=== PATIENT | female | born 1960 | race Caucasian/White ===

== ENCOUNTER 2018-01-28 11:17 | Inpatient (IN) | payer OTHER ==
[2018-01-28 11:41] LABS: BASO # 0.1 x10^3/uL (0.0-0.2); BASO % 1 % (0-3); EOS # 0.1 x10^3/uL (0.0-0.7); EOS % 1 % (0-3); HEMATOCRIT 26.4 % (36.0-47.0); HEMOGLOBIN 8.7 g/dL (12.0-15.5); LYMPH # 0.8 x10^3/uL (1.0-4.8); LYMPH % 5 % (24-48); MEAN CORPUSCULAR HEMOGLOBIN 31 pg (25-35); MEAN CORPUSCULAR HGB CONC 33 g/dL (31-37); MEAN CORPUSCULAR VOLUME 93 fL (79-100); MONO # 0.9 x10^3/uL (0.0-1.1); MONO % 6 % (0-9); NEUT # 12.6 x10^3uL (1.8-7.7); NEUT % 87 % (31-73); PLATELET COUNT 431 x10^3/uL (140-400); RED BLOOD COUNT 2.84 x10^6/uL (3.50-5.40); RED CELL DISTRIBUTION WIDTH 13.1 % (11.5-14.5); WHITE BLOOD COUNT 14.4 x10^3/uL (4.0-11.0)
[2018-01-28 11:47] LABS: ADD MAN DIFF? YES
[2018-01-28 12:03] LABS: ALBUMIN/GLOBULIN RATIO 0.7 (1.0-1.7); ALK PHOS 82 U/L (46-116); ALT (SGPT) 14 U/L (14-59); ANION GAP 24 (6-14); AST (SGOT) 8 U/L (15-37); CALCIUM 9.4 mg/dL (8.5-10.1); CHLORIDE 101 mmol/L (98-107); CREATININE 15.5 mg/dL (0.6-1.0); GFR 2.4; GLUCOSE 123 mg/dL (70-99); MAGNESIUM 2.4 mg/dL (1.8-2.4); SODIUM 136 mmol/L (136-145); TOTAL BILIRUBIN 0.6 mg/dL (0.2-1.0); TOTAL PROTEIN 7.3 g/dL (6.4-8.2)
[2018-01-28 12:05] LABS: BLOOD UREA NITROGEN 173 mg/dL (7-20); BUN/CREATININE RATIO 11 (6-20)
[2018-01-28 12:07] LABS: CARBON DIOXIDE 11 mmol/L (21-32); POTASSIUM 7.3 mmol/L (3.5-5.1)
[2018-01-28] MEDS ORDERED: MORPHINE SULFATE 4 MG/ML DISP.SYRIN. IV (12:15)
[2018-01-28 12:30] LABS: BILIRUBIN,URINE NEGATIVE (NEG); CLARITY,URINE TURBID; COLOR,URINE YELLOW; GLUCOSE,URINE NEGATIVE (NEG); NITRITE,URINE NEGATIVE (NEG); PH,URINE 8.5; PROTEIN,URINE >=300 mg/dL (NEG-TRACE); UROBILINOGEN,URINE 0.2 mg/dL (0.2 mg/dL)
[2018-01-28 12:38] LABS: BACTERIA,URINE MANY /HPF (0-FEW); RBC,URINE 20-40 /HPF (0-2); SQUAMOUS EPITHELIAL CELL,UR FEW /LPF
[2018-01-28 12:40] LABS: WBC,URINE 20-40 /HPF (0-4)
[2018-01-28] MEDS: CALCIUM GLUCONATE 1,000 MG/10 ML VIAL. IVP (12:48)
[2018-01-28] MEDS: DEXTROSE IV (12:49)
[2018-01-28] MEDS: SODIUM POLYSTYRENE SULFONATE 15 GM/60 ML ORAL.SUSP. PO (12:49)
[2018-01-28] MEDS: SODIUM BICARBONATE IV (12:49)
[2018-01-28] MEDS: NACL IV (12:49)
[2018-01-28 12:51] LABS: % BANDS 4 % (0-9); % BASOS 1 % (0-3); % EOS 1 % (0-5); % LYMPHS 6 % (24-48); % MONOS 5 % (0-10); % SEGS 83 % (35-66); PLT ESTIMATE INCREASED (ADEQUATE)
[2018-01-28 12:52] LABS: BURR CELLS FEW; OVALOCYTES FEW; POLYCHROMASIA SLIGHT
[2018-01-28] MEDS: ONDANSETRON PF 4 MG/2 ML VIAL. IV ×2 (12:55→13:15)
[2018-01-28] MEDS ORDERED: fentaNYL PF VIAL 100 MCG/2 ML VIAL IV (13:00)
[2018-01-28] MEDS ORDERED: IOHEXOL 300 MG/ML 100ML VIAL. (14:33)
[2018-01-28] MEDS ORDERED: LIDOCAINE WITH 8.4% SOD BICARB 3 ML DISP.SYRIN. ×2 (14:33→14:36)
[2018-01-28] MEDS: LIDOCAINE 2% JELLY 6ML IN APPLICATOR. MM (15:30)
[2018-01-28] MEDS ORDERED: LIDOCAINE 2% JELLY 6ML IN APPLICATOR. MM (15:30)
[2018-01-28 15:35] LABS: ANION GAP 25 (6-14); CALCIUM 10.4 mg/dL (8.5-10.1); CARBON DIOXIDE 14 mmol/L (21-32); CHLORIDE 101 mmol/L (98-107); CREATININE 16.3 mg/dL (0.6-1.0); GFR 2.3; GLUCOSE 146 mg/dL (70-99); INR 1.4 (0.8-1.1); PARTIAL THROMBOPLASTIN TIME 30 SEC (24-38); PROTHROMBIN TIME PATIENT 16.7 SEC (11.7-14.0); SODIUM 140 mmol/L (136-145)
[2018-01-28 15:36] LABS: BLOOD UREA NITROGEN 177 mg/dL (7-20)
[2018-01-28 15:38] LABS: POTASSIUM 6.5 mmol/L (3.5-5.1)
[2018-01-28] MEDS ORDERED: fentaNYL PF VIAL 100 MCG/2 ML VIAL (15:39)
[2018-01-28] MEDS ORDERED: MIDAZOLAM HCL/PF 2 MG/2 ML VIAL. (15:39)
[2018-01-28] MEDS: fentaNYL PF VIAL 100 MCG/2 ML VIAL IV ×3 (16:00→23:59)
[2018-01-28] MEDS: LIDOCAINE WITH 8.4% SOD BICARB 3 ML DISP.SYRIN. IJ (16:00)
[2018-01-28] MEDS: MIDAZOLAM HCL/PF 2 MG/2 ML VIAL. IV (16:00)
[2018-01-28] MEDS: IOHEXOL 300 MG/ML 100ML VIAL. IART (16:00)
[2018-01-28] MEDS: ALPRAZolam 0.5 MG TABLET PO (18:40)
[2018-01-28] MEDS: NICOTINE 14MG PATCH. TD (18:40)
[2018-01-28 19:39] LABS: ANION GAP 23 (6-14); BLOOD UREA NITROGEN 177 mg/dL (7-20); CALCIUM 9.7 mg/dL (8.5-10.1); CARBON DIOXIDE 16 mmol/L (21-32); CHLORIDE 105 mmol/L (98-107); CREATININE 15.6 mg/dL (0.6-1.0); GFR 2.4; GLUCOSE 172 mg/dL (70-99); POTASSIUM 5.4 mmol/L (3.5-5.1); SODIUM 144 mmol/L (136-145)
[2018-01-28] MEDS: IV NORMAL SALINE 1000ML BAG 1,000 ML IV (22:32)
[2018-01-28] MEDS: SODIUM BICARBONATE VIAL 150 MEQ in IV DEXTROSE 5% 1,000 ML IV (23:59)
[2018-01-29] MEDS: fentaNYL PF VIAL 100 MCG/2 ML VIAL IV ×5 (02:51→21:30)
[2018-01-29 03:15] LABS: MRSA BY PCR Negative (Negative)
[2018-01-29 05:02] LABS: ADD MAN DIFF? NO
[2018-01-29 05:22] LABS: BASO # 0.1 x10^3/uL (0.0-0.2); BASO % 1 % (0-3); EOS # 0.2 x10^3/uL (0.0-0.7); EOS % 2 % (0-3); LYMPH # 0.7 x10^3/uL (1.0-4.8); LYMPH % 7 % (24-48); MEAN CORPUSCULAR HEMOGLOBIN 31 pg (25-35); MEAN CORPUSCULAR HGB CONC 35 g/dL (31-37); MEAN CORPUSCULAR VOLUME 91 fL (79-100); MONO % 10 % (0-9); NEUT # 8.3 x10^3uL (1.8-7.7); NEUT % 81 % (31-73); PLATELET COUNT 340 x10^3/uL (140-400); RED BLOOD COUNT 2.22 x10^6/uL (3.50-5.40); RED CELL DISTRIBUTION WIDTH 13.1 % (11.5-14.5); WHITE BLOOD COUNT 10.3 x10^3/uL (4.0-11.0)
[2018-01-29 05:35] LABS: HEMATOCRIT 20.1 % (36.0-47.0)
[2018-01-29] MEDS: ALPRAZolam 0.5 MG TABLET PO (06:28)
[2018-01-29] MEDS ORDERED: LACTOBACILLUS RHAMNOSUS GG 1 CAPSULE. PO (09:00)
[2018-01-29 09:02] LABS: IMMEDIATE SPIN CROSSMATCH 1 1
[2018-01-29] MEDS ORDERED: HEPARIN for IV BOLUS 10,000 UNIT/10 ML VIAL. (10:52)
[2018-01-29] MEDS ORDERED: LIDOCAINE WITH 8.4% SOD BICARB 3 ML DISP.SYRIN. ×2 (10:52)
[2018-01-29] MEDS ORDERED: METHYL SALICYLATE/MENTHOL TOPICAL OINTMENT 29GM TUBE. TP (12:15)
[2018-01-29] MEDS ORDERED: fentaNYL PF VIAL 100 MCG/2 ML VIAL (12:25)
[2018-01-29] MEDS: LIDOCAINE WITH 8.4% SOD BICARB 3 ML DISP.SYRIN. IJ (12:45)
[2018-01-29] MEDS ORDERED: IOHEXOL 240 MG/ML 50ML VIAL. (12:54)
[2018-01-29 15:14] LABS: HEMATOCRIT 26.2 % (36.0-47.0); MEAN CORPUSCULAR HEMOGLOBIN 31 pg (25-35); MEAN CORPUSCULAR HGB CONC 34 g/dL (31-37); MEAN CORPUSCULAR VOLUME 90 fL (79-100); PLATELET COUNT 352 x10^3/uL (140-400); RED BLOOD COUNT 2.91 x10^6/uL (3.50-5.40); RED CELL DISTRIBUTION WIDTH 13.4 % (11.5-14.5); WHITE BLOOD COUNT 13.7 x10^3/uL (4.0-11.0)
[2018-01-29] MEDS: cefTRIAXone IV Push 1 GM VIAL. IVP (16:28)
[2018-01-29] MEDS ORDERED: IV NORMAL SALINE 1000ML BAG 1,000 ML IV ×2 (17:30)
[2018-01-29] MEDS ORDERED: ALBUMIN HUMAN 25% 200 ML IV (17:30)
[2018-01-29] MEDS ORDERED: ACETAMINOPHEN 500 MG TABLET PO (17:30)
[2018-01-29] MEDS ORDERED: LABETALOL 20 MG/4 ML DISP.SYRIN. IVP (17:30)
[2018-01-29] MEDS ORDERED: DIALYSIS PATIENT. MC (17:30)
[2018-01-29] MEDS ORDERED: cloNIDine HCL 0.1 MG TABLET PO (17:30)
[2018-01-29] MEDS ORDERED: diphenhydrAMINE 50 MG/ML VIAL IV ×2 (17:30)
[2018-01-29] MEDS: ONDANSETRON PF 4 MG/2 ML VIAL. IV (20:47)
[2018-01-29] MEDS: NICOTINE 14MG PATCH. TD (21:33)
[2018-01-30] MEDS: PROCHLORPERAZINE 10 MG/2 ML VIAL. IV (00:22)
[2018-01-30 05:31] LABS: ADD MAN DIFF? NO
[2018-01-30 05:59] LABS: BASO # 0.1 x10^3/uL (0.0-0.2); BASO % 1 % (0-3); EOS # 0.1 x10^3/uL (0.0-0.7); EOS % 1 % (0-3); HEMATOCRIT 23.8 % (36.0-47.0); HEMOGLOBIN 8.3 g/dL (12.0-15.5); LYMPH # 0.8 x10^3/uL (1.0-4.8); LYMPH % 6 % (24-48); MEAN CORPUSCULAR HEMOGLOBIN 31 pg (25-35); MEAN CORPUSCULAR HGB CONC 35 g/dL (31-37); MEAN CORPUSCULAR VOLUME 89 fL (79-100); MONO # 1.1 x10^3/uL (0.0-1.1); MONO % 9 % (0-9); NEUT # 10.7 x10^3uL (1.8-7.7); NEUT % 84 % (31-73); PLATELET COUNT 321 x10^3/uL (140-400); RED BLOOD COUNT 2.67 x10^6/uL (3.50-5.40); RED CELL DISTRIBUTION WIDTH 13.6 % (11.5-14.5); WHITE BLOOD COUNT 12.8 x10^3/uL (4.0-11.0)
[2018-01-30 06:11] LABS: MAGNESIUM 1.6 mg/dL (1.8-2.4)
[2018-01-30 06:13] LABS: ALBUMIN 2.2 g/dL (3.4-5.0); ANION GAP 9 (6-14); BLOOD UREA NITROGEN 43 mg/dL (7-20); CALCIUM 7.9 mg/dL (8.5-10.1); CARBON DIOXIDE 34 mmol/L (21-32); CHLORIDE 101 mmol/L (98-107); CREATININE 5.7 mg/dL (0.6-1.0); GFR 7.7; GLUCOSE 117 mg/dL (70-99); PHOSPHORUS 5.9 mg/dL (2.6-4.7); POTASSIUM 3.4 mmol/L (3.5-5.1); SODIUM 144 mmol/L (136-145)
[2018-01-30 06:16] LABS: HEP B SURFACE ABDY Non Reactive (.); HEP B SURFACE AG Negative (Negative)
[2018-01-30] MEDS: MAGNESIUM SULFATE 2GM 50 ML IV (06:53)
[2018-01-30] MEDS: ONDANSETRON PF 4 MG/2 ML VIAL. IV ×2 (08:09→14:25)
[2018-01-30] MEDS ORDERED: IV NORMAL SALINE 1000ML BAG 1,000 ML IV (09:01)
[2018-01-30] MEDS ORDERED: DIALYSIS PATIENT. MC ×2 (09:15)
[2018-01-30] MEDS: ALPRAZolam 0.5 MG TABLET PO ×2 (10:52→21:34)
[2018-01-30] MEDS: cefTRIAXone IV Push 1 GM VIAL. IVP (16:50)
[2018-01-30] MEDS: IV NORMAL SALINE 1000ML BAG 1,000 ML IV (16:50)
[2018-01-30] MEDS ORDERED: LACTOBACILLUS RHAMNOSUS GG 1 CAPSULE. PO (21:00)
[2018-01-31] MEDS: IV NORMAL SALINE 1000ML BAG 1,000 ML IV ×2 (00:21→14:40)
[2018-01-31] MEDS: NICOTINE 14MG PATCH. TD (02:56)
[2018-01-31 05:13] LABS: ADD MAN DIFF? NO
[2018-01-31 05:42] LABS: BASO # 0.1 x10^3/uL (0.0-0.2); BASO % 1 % (0-3); EOS # 0.2 x10^3/uL (0.0-0.7); EOS % 1 % (0-3); HEMATOCRIT 25.2 % (36.0-47.0); HEMOGLOBIN 8.4 g/dL (12.0-15.5); LYMPH # 0.9 x10^3/uL (1.0-4.8); LYMPH % 7 % (24-48); MEAN CORPUSCULAR HEMOGLOBIN 31 pg (25-35); MEAN CORPUSCULAR HGB CONC 33 g/dL (31-37); MEAN CORPUSCULAR VOLUME 92 fL (79-100); MONO # 1.5 x10^3/uL (0.0-1.1); MONO % 11 % (0-9); NEUT # 10.7 x10^3uL (1.8-7.7); NEUT % 80 % (31-73); PLATELET COUNT 297 x10^3/uL (140-400); RED BLOOD COUNT 2.75 x10^6/uL (3.50-5.40); RED CELL DISTRIBUTION WIDTH 13.3 % (11.5-14.5); WHITE BLOOD COUNT 13.4 x10^3/uL (4.0-11.0)
[2018-01-31 05:44] LABS: ALBUMIN 2.2 g/dL (3.4-5.0); ANION GAP 10 (6-14); BLOOD UREA NITROGEN 17 mg/dL (7-20); CALCIUM 8.1 mg/dL (8.5-10.1); CARBON DIOXIDE 29 mmol/L (21-32); CHLORIDE 105 mmol/L (98-107); CREATININE 3.7 mg/dL (0.6-1.0); GFR 12.7; GLUCOSE 111 mg/dL (70-99); PHOSPHORUS 3.6 mg/dL (2.6-4.7); POTASSIUM 3.5 mmol/L (3.5-5.1); SODIUM 144 mmol/L (136-145)
[2018-01-31] MEDS: ALPRAZolam 0.5 MG TABLET PO ×2 (08:24→23:31)
[2018-01-31] MEDS: cefTRIAXone IV Push 1 GM VIAL. IVP (15:00)
[2018-01-31] MEDS: ONDANSETRON PF 4 MG/2 ML VIAL. IV (16:06)
[2018-01-31] MEDS: oxyCODONE IR 5 MG TABLET PO (21:27)
[2018-01-31] MEDS: DARBEPOETIN ALFA 60 MCG/0.3 ML DISP.SYRIN. SQ (22:16)
[2018-02-01] MEDS: IV NORMAL SALINE 1000ML BAG 1,000 ML IV ×2 (04:00→17:20)
[2018-02-01] MEDS ORDERED: LIDOCAINE 2% JELLY 6ML IN APPLICATOR. (06:29)
[2018-02-01] MEDS: IV RINGERS,LACTATED 1000ML 1,000 ML IV (07:00)
[2018-02-01] MEDS ORDERED: PROCHLORPERAZINE 10 MG/2 ML VIAL. IV (07:00)
[2018-02-01] MEDS ORDERED: MORPHINE SULFATE 4 MG/ML DISP.SYRIN. IV (07:00)
[2018-02-01] MEDS ORDERED: fentaNYL PF VIAL 100 MCG/2 ML VIAL IV ×2 (07:00)
[2018-02-01] MEDS ORDERED: ONDANSETRON PF 4 MG/2 ML VIAL. IV (07:00)
[2018-02-01 07:57] LABS: ADD MAN DIFF? NO
[2018-02-01 08:04] LABS: BASO # 0.1 x10^3/uL (0.0-0.2); BASO % 1 % (0-3); EOS # 0.3 x10^3/uL (0.0-0.7); EOS % 3 % (0-3); HEMATOCRIT 27.3 % (36.0-47.0); LYMPH # 1.3 x10^3/uL (1.0-4.8); LYMPH % 10 % (24-48); MEAN CORPUSCULAR HEMOGLOBIN 31 pg (25-35); MEAN CORPUSCULAR HGB CONC 33 g/dL (31-37); MEAN CORPUSCULAR VOLUME 92 fL (79-100); MONO # 1.2 x10^3/uL (0.0-1.1); MONO % 9 % (0-9); NEUT # 9.5 x10^3uL (1.8-7.7); NEUT % 77 % (31-73); PLATELET COUNT 295 x10^3/uL (140-400); RED BLOOD COUNT 2.96 x10^6/uL (3.50-5.40); WHITE BLOOD COUNT 12.4 x10^3/uL (4.0-11.0)
[2018-02-01 08:22] LABS: ALBUMIN 2.2 g/dL (3.4-5.0); ANION GAP 8 (6-14); BLOOD UREA NITROGEN 23 mg/dL (7-20); CALCIUM 8.2 mg/dL (8.5-10.1); CARBON DIOXIDE 28 mmol/L (21-32); CHLORIDE 109 mmol/L (98-107); CREATININE 5.1 mg/dL (0.6-1.0); GFR 8.8; GLUCOSE 98 mg/dL (70-99); MAGNESIUM 1.7 mg/dL (1.8-2.4); PHOSPHORUS 3.6 mg/dL (2.6-4.7); POTASSIUM 3.3 mmol/L (3.5-5.1); SODIUM 145 mmol/L (136-145)
[2018-02-01] MEDS: ALPRAZolam 0.5 MG TABLET PO ×2 (10:48→22:08)
[2018-02-01] MEDS: MAGNESIUM SULFATE 2GM 50 ML IV (10:51)
[2018-02-01] MEDS ORDERED: LACTOBACILLUS RHAMNOSUS GG 1 CAPSULE. PO (11:00)
[2018-02-01 14:14] LABS: LACTIC ACID 0.8 mmol/L (0.4-2.0)
[2018-02-01] MEDS: cefTRIAXone IV Push 1 GM VIAL. IVP (15:08)
[2018-02-01] MEDS ORDERED: SEVOFLURANE > 120 MINUTES. IH (16:30)
[2018-02-01] MEDS ORDERED: SEVOFLURANE 61 TO 120 MINUTES. IH (16:30)
[2018-02-01] MEDS ORDERED: fentaNYL PF VIAL 100 MCG/2 ML VIAL (16:31)
[2018-02-01] MEDS ORDERED: PROPOFOL 20 ML IV (16:33)
[2018-02-01] MEDS ORDERED: DEXAMETHASONE SOD PHOS 20 MG/5 ML VIAL. (16:33)
[2018-02-01] MEDS ORDERED: ONDANSETRON PF 4 MG/2 ML VIAL. (16:33)
[2018-02-01] MEDS ORDERED: MIDAZOLAM HCL/PF 2 MG/2 ML VIAL. (16:33)
[2018-02-01] MEDS ORDERED: KETOROLAC 30 MG/ML INJ FOR OR. INJ (16:33)
[2018-02-01] MEDS: LIDOCAINE 1% PF 2 ML VIAL. ID (18:13)
[2018-02-01] MEDS: NICOTINE 14MG PATCH. TD (19:52)
[2018-02-01] MEDS: fentaNYL PF VIAL 100 MCG/2 ML VIAL IV (19:59)
[2018-02-02 06:06] LABS: ADD MAN DIFF? NO
[2018-02-02 06:33] LABS: ANION GAP 13 (6-14); BLOOD UREA NITROGEN 32 mg/dL (7-20); CALCIUM 8.1 mg/dL (8.5-10.1); CARBON DIOXIDE 24 mmol/L (21-32); CHLORIDE 106 mmol/L (98-107); CREATININE 5.3 mg/dL (0.6-1.0); GFR 8.4; GLUCOSE 180 mg/dL (70-99); PHOSPHORUS 4.1 mg/dL (2.6-4.7); POTASSIUM 3.9 mmol/L (3.5-5.1); SODIUM 143 mmol/L (136-145)
[2018-02-02 07:05] LABS: BASO % 0 % (0-3); EOS % 0 % (0-3); HEMATOCRIT 26.5 % (36.0-47.0); HEMOGLOBIN 8.8 g/dL (12.0-15.5); LYMPH # 0.7 x10^3/uL (1.0-4.8); LYMPH % 5 % (24-48); MEAN CORPUSCULAR HEMOGLOBIN 30 pg (25-35); MEAN CORPUSCULAR HGB CONC 33 g/dL (31-37); MEAN CORPUSCULAR VOLUME 92 fL (79-100); MONO # 0.4 x10^3/uL (0.0-1.1); MONO % 3 % (0-9); NEUT # 13.7 x10^3uL (1.8-7.7); NEUT % 93 % (31-73); PLATELET COUNT 290 x10^3/uL (140-400); RED CELL DISTRIBUTION WIDTH 13.2 % (11.5-14.5); WHITE BLOOD COUNT 14.8 x10^3/uL (4.0-11.0)
[2018-02-02] MEDS: IV NORMAL SALINE 1000ML BAG 1,000 ML IV ×2 (08:53→20:28)
[2018-02-02] MEDS ORDERED: IV NORMAL SALINE 1000ML BAG 1,000 ML IV (11:08)
[2018-02-02] MEDS ORDERED: 0.9 % SODIUM CHLORIDE 10 ML DISP.SYRIN. IV ×2 (11:15)
[2018-02-02] MEDS ORDERED: DIALYSIS PATIENT. MC ×2 (11:15)
[2018-02-02] MEDS: cefTRIAXone IV Push 1 GM VIAL. IVP (15:21)
[2018-02-02] MEDS: ALPRAZolam 0.5 MG TABLET PO (17:55)
[2018-02-02] MEDS: oxyCODONE IR 5 MG TABLET PO (20:28)
[2018-02-03] MEDS: ALPRAZolam 0.5 MG TABLET PO ×3 (03:55→22:36)
[2018-02-03 04:45] LABS: ADD MAN DIFF? NO
[2018-02-03 05:05] LABS: BASO # 0.1 x10^3/uL (0.0-0.2); BASO % 0 % (0-3); EOS # 0.2 x10^3/uL (0.0-0.7); EOS % 1 % (0-3); HEMATOCRIT 25.3 % (36.0-47.0); HEMOGLOBIN 8.3 g/dL (12.0-15.5); LYMPH # 1.7 x10^3/uL (1.0-4.8); LYMPH % 10 % (24-48); MEAN CORPUSCULAR HEMOGLOBIN 30 pg (25-35); MEAN CORPUSCULAR HGB CONC 33 g/dL (31-37); MEAN CORPUSCULAR VOLUME 91 fL (79-100); MONO # 1.4 x10^3/uL (0.0-1.1); MONO % 8 % (0-9); NEUT # 13.5 x10^3uL (1.8-7.7); NEUT % 80 % (31-73); PLATELET COUNT 304 x10^3/uL (140-400); RED BLOOD COUNT 2.79 x10^6/uL (3.50-5.40); RED CELL DISTRIBUTION WIDTH 13.2 % (11.5-14.5)
[2018-02-03 05:43] LABS: MAGNESIUM 1.8 mg/dL (1.8-2.4)
[2018-02-03 06:06] LABS: ALBUMIN 2.2 g/dL (3.4-5.0); ANION GAP 11 (6-14); BLOOD UREA NITROGEN 21 mg/dL (7-20); CALCIUM 8.2 mg/dL (8.5-10.1); CARBON DIOXIDE 28 mmol/L (21-32); CHLORIDE 104 mmol/L (98-107); GFR 16.1; GLUCOSE 106 mg/dL (70-99); PHOSPHORUS 2.5 mg/dL (2.6-4.7); POTASSIUM 3.3 mmol/L (3.5-5.1); SODIUM 143 mmol/L (136-145)
[2018-02-03] MEDS: IV NORMAL SALINE 1000ML BAG 1,000 ML IV ×2 (07:33→22:35)
[2018-02-03] MEDS: cefTRIAXone IV Push 1 GM VIAL. IVP (14:26)
[2018-02-04 05:26] LABS: ADD MAN DIFF? NO
[2018-02-04 05:34] LABS: BASO # 0.1 x10^3/uL (0.0-0.2); BASO % 1 % (0-3); EOS # 0.3 x10^3/uL (0.0-0.7); EOS % 2 % (0-3); HEMOGLOBIN 8.9 g/dL (12.0-15.5); LYMPH # 1.5 x10^3/uL (1.0-4.8); LYMPH % 12 % (24-48); MEAN CORPUSCULAR HEMOGLOBIN 30 pg (25-35); MEAN CORPUSCULAR HGB CONC 33 g/dL (31-37); MEAN CORPUSCULAR VOLUME 91 fL (79-100); MONO # 1.5 x10^3/uL (0.0-1.1); MONO % 12 % (0-9); NEUT # 8.8 x10^3uL (1.8-7.7); NEUT % 73 % (31-73); PLATELET COUNT 340 x10^3/uL (140-400); RED BLOOD COUNT 2.98 x10^6/uL (3.50-5.40); RED CELL DISTRIBUTION WIDTH 13.3 % (11.5-14.5); WHITE BLOOD COUNT 12.1 x10^3/uL (4.0-11.0)
[2018-02-04 05:55] LABS: ALBUMIN 2.3 g/dL (3.4-5.0); ANION GAP 12 (6-14); BLOOD UREA NITROGEN 32 mg/dL (7-20); CALCIUM 8.1 mg/dL (8.5-10.1); CARBON DIOXIDE 27 mmol/L (21-32); CHLORIDE 106 mmol/L (98-107); CREATININE 3.9 mg/dL (0.6-1.0); GFR 11.9; GLUCOSE 109 mg/dL (70-99); PHOSPHORUS 3.2 mg/dL (2.6-4.7); POTASSIUM 3.5 mmol/L (3.5-5.1); SODIUM 145 mmol/L (136-145)
[2018-02-04] MEDS: IV NORMAL SALINE 1000ML BAG 1,000 ML IV (13:19)
[2018-02-04] MEDS: cefTRIAXone IV Push 1 GM VIAL. IVP (16:46)
[2018-02-04] MEDS: ALPRAZolam 0.5 MG TABLET PO (16:51)
[2018-02-04] MEDS: oxyCODONE IR 5 MG TABLET PO (21:49)
[2018-02-05] MEDS: IV NORMAL SALINE 1000ML BAG 1,000 ML IV ×2 (02:30→14:40)
[2018-02-05 05:57] LABS: ADD MAN DIFF? NO
[2018-02-05 06:00] LABS: BASO # 0.1 x10^3/uL (0.0-0.2); BASO % 1 % (0-3); EOS # 0.3 x10^3/uL (0.0-0.7); EOS % 3 % (0-3); HEMATOCRIT 25.7 % (36.0-47.0); HEMOGLOBIN 8.4 g/dL (12.0-15.5); LYMPH # 1.3 x10^3/uL (1.0-4.8); LYMPH % 11 % (24-48); MEAN CORPUSCULAR HEMOGLOBIN 30 pg (25-35); MEAN CORPUSCULAR HGB CONC 33 g/dL (31-37); MEAN CORPUSCULAR VOLUME 91 fL (79-100); MONO # 1.5 x10^3/uL (0.0-1.1); MONO % 12 % (0-9); NEUT # 8.9 x10^3uL (1.8-7.7); NEUT % 73 % (31-73); PLATELET COUNT 312 x10^3/uL (140-400); RED BLOOD COUNT 2.81 x10^6/uL (3.50-5.40); RED CELL DISTRIBUTION WIDTH 13.6 % (11.5-14.5); WHITE BLOOD COUNT 12.2 x10^3/uL (4.0-11.0)
[2018-02-05 06:15] LABS: ALBUMIN 2.1 g/dL (3.4-5.0); ANION GAP 9 (6-14); BLOOD UREA NITROGEN 40 mg/dL (7-20); CALCIUM 8.3 mg/dL (8.5-10.1); CARBON DIOXIDE 27 mmol/L (21-32); CHLORIDE 106 mmol/L (98-107); CREATININE 4.6 mg/dL (0.6-1.0); GFR 9.9; GLUCOSE 109 mg/dL (70-99); PHOSPHORUS 3.6 mg/dL (2.6-4.7); POTASSIUM 3.7 mmol/L (3.5-5.1); SODIUM 142 mmol/L (136-145)
[2018-02-05] MEDS ORDERED: HEPARIN for IV BOLUS 10,000 UNIT/10 ML VIAL. (13:39)
[2018-02-05] MEDS ORDERED: LIDOCAINE 2%/EPI 1:100,000 20 ML VIAL. (13:39)
[2018-02-05] MEDS ORDERED: DIALYSIS PATIENT. MC (14:00)
[2018-02-05] MEDS ORDERED: IV NORMAL SALINE 1000ML BAG 1,000 ML IV ×2 (14:00)
[2018-02-05] MEDS: MIDAZOLAM HCL/PF 2 MG/2 ML VIAL. IV (14:24)
[2018-02-05] MEDS: LIDOCAINE 2%/EPI 1:100,000 20 ML VIAL. IJ (14:25)
[2018-02-05] MEDS: fentaNYL PF VIAL 100 MCG/2 ML VIAL IV (14:25)
[2018-02-05] MEDS: ALPRAZolam 0.5 MG TABLET PO (15:42)
[2018-02-05] MEDS: ACETAMINOPHEN 325 MG TABLET. PO (15:42)
[2018-02-05] MEDS: oxyCODONE IR 5 MG TABLET PO (21:04)
[2018-02-05] MEDS: LORazepam 1 MG TABLET PO (22:11)
[2018-02-06] MEDS: ALPRAZolam 0.5 MG TABLET PO (02:48)
[2018-02-06] MEDS: IV NORMAL SALINE 1000ML BAG 1,000 ML IV ×2 (02:49→17:59)
[2018-02-06 08:36] LABS: HEMATOCRIT 27.5 % (36.0-47.0); HEMOGLOBIN 9.2 g/dL (12.0-15.5); MEAN CORPUSCULAR HEMOGLOBIN 31 pg (25-35); MEAN CORPUSCULAR HGB CONC 33 g/dL (31-37); MEAN CORPUSCULAR VOLUME 92 fL (79-100); PLATELET COUNT 347 x10^3/uL (140-400); RED CELL DISTRIBUTION WIDTH 13.3 % (11.5-14.5)
[2018-02-06] MEDS: oxyCODONE IR 5 MG TABLET PO ×2 (08:39→21:50)
[2018-02-06 09:01] LABS: ANION GAP 7 (6-14); BLOOD UREA NITROGEN 22 mg/dL (7-20); CALCIUM 8.6 mg/dL (8.5-10.1); CARBON DIOXIDE 30 mmol/L (21-32); CHLORIDE 103 mmol/L (98-107); CREATININE 3.2 mg/dL (0.6-1.0); GLUCOSE 98 mg/dL (70-99); POTASSIUM 4.4 mmol/L (3.5-5.1); SODIUM 140 mmol/L (136-145)
[2018-02-06] MEDS: ONDANSETRON PF 4 MG/2 ML VIAL. IV (17:59)
[2018-02-06] MEDS: LORazepam 1 MG TABLET PO (21:49)
[2018-02-07] MEDS: IV NORMAL SALINE 1000ML BAG 1,000 ML IV (05:36)
[2018-02-07] MEDS ORDERED: MAGNESIUM SULFATE 2GM 50 ML IV (09:00)
[2018-02-07] MEDS: oxyCODONE IR 5 MG TABLET PO ×2 (09:19→18:23)
[2018-02-07] MEDS: LORazepam 1 MG TABLET PO (18:23)
[2018-02-07] MEDS: ALPRAZolam 0.5 MG TABLET PO (21:11)
[2018-02-07] MEDS: DARBEPOETIN ALFA 60 MCG/0.3 ML DISP.SYRIN. SQ (21:11)
[2018-02-07] MEDS: diphenhydrAMINE HCL 25 MG CAPSULE PO (22:51)
[2018-02-08 05:29] LABS: HEMOGLOBIN 8.8 g/dL (12.0-15.5)
[2018-02-08 05:51] LABS: ALBUMIN 2.4 g/dL (3.4-5.0); ANION GAP 11 (6-14); BLOOD UREA NITROGEN 36 mg/dL (7-20); CALCIUM 9.1 mg/dL (8.5-10.1); CARBON DIOXIDE 27 mmol/L (21-32); CHLORIDE 103 mmol/L (98-107); GLUCOSE 95 mg/dL (70-99); MAGNESIUM 1.7 mg/dL (1.8-2.4); PHOSPHORUS 4.9 mg/dL (2.6-4.7); POTASSIUM 4.7 mmol/L (3.5-5.1); SODIUM 141 mmol/L (136-145)
[2018-02-08] MEDS ORDERED: IV NORMAL SALINE 1000ML BAG 1,000 ML IV ×2 (08:33)
[2018-02-08] MEDS ORDERED: diphenhydrAMINE 50 MG/ML VIAL IV ×2 (08:45)
[2018-02-08] MEDS ORDERED: DIALYSIS PATIENT. MC (08:45)
== END 2018-02-08 15:41 | disposition home or self-care (01) | DRG 668 ==
LOC: 4 NORTH 01-31 15:09 → ER 11:17 → 1 WEST ICU 14:18
PROC: 0T913ZZ Drainage of Left Kidney, Percutaneous Approach (ICD-10-PCS; principal; 2018-02-01 16:55)
PROC: 02PA03Z Removal of Infusion Device from Heart, Open Approach (ICD-10-PCS; 2018-02-01 16:55)
PROC: 0TBB8ZZ Excision of Bladder, Via Natural or Artificial Opening Endoscopic (ICD-10-PCS; 2018-02-01 16:55)
PROC: 0JH63XZ Insertion of Tunneled Vascular Access Device into Chest Subcutaneous Tissue and Fascia, Percutaneous Approach (ICD-10-PCS; 2018-02-01 16:55)
PROC: 0T903ZZ Drainage of Right Kidney, Percutaneous Approach (ICD-10-PCS; 2018-02-01 16:55)
PROC: 02H633Z Insertion of Infusion Device into Right Atrium, Percutaneous Approach (ICD-10-PCS; 2018-02-01 16:55)
PROC: B2141ZZ Fluoroscopy of Right Heart using Low Osmolar Contrast (ICD-10-PCS; 2018-02-01 16:55)
PROC: 02H633Z Insertion of Infusion Device into Right Atrium, Percutaneous Approach (ICD-10-PCS; 2018-02-01 16:55)
PROC: 30233N1 Transfusion of Nonautologous Red Blood Cells into Peripheral Vein, Percutaneous Approach (ICD-10-PCS; 2018-02-01 16:55)
PROC: 5A1D70Z Performance of Urinary Filtration, Intermittent, Less than 6 Hours Per Day (ICD-10-PCS; 2018-02-01 16:55)
PROC: 5A1D70Z Performance of Urinary Filtration, Intermittent, Less than 6 Hours Per Day (ICD-10-PCS; 2018-02-01 16:55)
PROC: 5A1D70Z Performance of Urinary Filtration, Intermittent, Less than 6 Hours Per Day (ICD-10-PCS; 2018-02-01 16:55)
PROC: 5A1D70Z Performance of Urinary Filtration, Intermittent, Less than 6 Hours Per Day (ICD-10-PCS; 2018-02-01 16:55)
PROC: 5A1D70Z Performance of Urinary Filtration, Intermittent, Less than 6 Hours Per Day (ICD-10-PCS; 2018-02-01 16:55)
DX: C67.9 Malignant neoplasm of bladder, unspecified (principal); E43 Unspecified severe protein-calorie malnutrition; N17.9 Acute kidney failure, unspecified; E87.2 Acidosis; C52 Malignant neoplasm of vagina; D63.1 Anemia in chronic kidney disease; N82.0 Vesicovaginal fistula; N82.8 Other female genital tract fistulae; N39.0 Urinary tract infection, site not specified; N13.30 Unspecified hydronephrosis; C53.9 Malignant neoplasm of cervix uteri, unspecified; N18.3 Chronic kidney disease, stage 3 (moderate); E87.5 Hyperkalemia; N32.0 Bladder-neck obstruction; D72.828 Other elevated white blood cell count; F17.210 Nicotine dependence, cigarettes, uncomplicated; F41.9 Anxiety disorder, unspecified; I51.7 Cardiomegaly; K57.30 Diverticulosis of large intestine without perforation or abscess without bleeding; K59.00 Constipation, unspecified; M47.816 Spondylosis without myelopathy or radiculopathy, lumbar region; N28.82 Megaloureter; R32 Unspecified urinary incontinence; Z80.6 Family history of leukemia; Z85.41 Personal history of malignant neoplasm of cervix uteri; Z99.2 Dependence on renal dialysis; Z68.23 Body mass index [BMI] 23.0-23.9, adult; Z88.5 Allergy status to narcotic agent
CPT/HCPCS: 36415; 36556; 36581; 50432; 71045; 74176; 76770; 76856; 76937; 76942; 77001; 80048; 80053; 80069; 81001; 83605; 83735; 85007; 85018; 85025; 85027; 85610; 85730; 86704; 86706; 86850; 86900; 86901; 86920; 87040; 87086; 87340; 87641; 88305; 93005; 96365; 96366; 96375; 99152; 99153; 99285; 99285-25; C1729; C1750; C1769; C1892; C1894; J0610; J0690; J0696; J0780; J0881; J1100; J1644; J1885; J1956; J2250; J2405; J2704; J3010; J3475; J3490; J7030; J7042; J7120; P9016; Q0163; Q9967

== ENCOUNTER → 2018-02-11 | Outpatient (CLI) | payer OTHER ==
[~2018-02-11] MED LIST: MIDAZOLAM HCL/PF 2 MG/2 ML VIAL.; fentaNYL PF VIAL 100 MCG/2 ML VIAL
== END | disposition home or self-care (01) ==
LOC: PETSC 06:49
DX: C53.9 Malignant neoplasm of cervix uteri, unspecified (principal); K57.30 Diverticulosis of large intestine without perforation or abscess without bleeding; Z45.2 Encounter for adjustment and management of vascular access device
CPT/HCPCS: 78815; A9552

== ENCOUNTER 2018-02-12 10:30 | Inpatient (IN) | payer OTHER ==
[2018-02-12] MEDS ORDERED: LIDOCAINE WITH 8.4% SOD BICARB 3 ML DISP.SYRIN. (11:50)
[2018-02-12] MEDS ORDERED: IODIXANOL 320MG/ML 50ML VIAL. (11:50)
[2018-02-12] MEDS ORDERED: ACETAMINOPHEN 500 MG TABLET PO (13:30)
[2018-02-12] MEDS ORDERED: ONDANSETRON PF 4 MG/2 ML VIAL. IV (13:30)
[2018-02-12] MEDS ORDERED: fentaNYL PF VIAL 100 MCG/2 ML VIAL IV (13:30)
[2018-02-12] MEDS: IODIXANOL 320MG/ML 50ML VIAL. IV (13:46)
[2018-02-12] MEDS: LIDOCAINE WITH 8.4% SOD BICARB 3 ML DISP.SYRIN. IJ (13:47)
[2018-02-12] MEDS: fentaNYL PF VIAL 100 MCG/2 ML VIAL IV (13:48)
[2018-02-12] MEDS: MIDAZOLAM HCL/PF 2 MG/2 ML VIAL. IV (13:48)
[2018-02-12] MEDS ORDERED: IV NORMAL SALINE 1000ML BAG 1,000 ML IV (15:58)
[2018-02-12] MEDS ORDERED: 0.9 % SODIUM CHLORIDE 10 ML DISP.SYRIN. IV ×2 (16:00)
[2018-02-12] MEDS ORDERED: DIALYSIS PATIENT. MC ×2 (16:00)
[2018-02-12] MEDS: oxyCODONE IR 5 MG TABLET PO ×2 (16:28→20:23)
[2018-02-12] MEDS: LORazepam 1 MG TABLET PO (22:44)
[2018-02-13 05:40] LABS: ADD MAN DIFF? NO
[2018-02-13 05:49] LABS: BASO # 0.1 x10^3/uL (0.0-0.2); BASO % 1 % (0-3); EOS # 0.2 x10^3/uL (0.0-0.7); EOS % 2 % (0-3); HEMATOCRIT 26.2 % (36.0-47.0); HEMOGLOBIN 8.6 g/dL (12.0-15.5); LYMPH # 1.4 x10^3/uL (1.0-4.8); LYMPH % 13 % (24-48); MEAN CORPUSCULAR HEMOGLOBIN 30 pg (25-35); MEAN CORPUSCULAR HGB CONC 33 g/dL (31-37); MEAN CORPUSCULAR VOLUME 91 fL (79-100); MONO # 1.2 x10^3/uL (0.0-1.1); MONO % 12 % (0-9); NEUT # 7.9 x10^3uL (1.8-7.7); NEUT % 73 % (31-73); PLATELET COUNT 395 x10^3/uL (140-400); RED BLOOD COUNT 2.88 x10^6/uL (3.50-5.40); RED CELL DISTRIBUTION WIDTH 13.7 % (11.5-14.5); WHITE BLOOD COUNT 10.8 x10^3/uL (4.0-11.0)
[2018-02-13 06:15] LABS: ANION GAP 8 (6-14); BLOOD UREA NITROGEN 13 mg/dL (7-20); CARBON DIOXIDE 30 mmol/L (21-32); CHLORIDE 102 mmol/L (98-107); CREATININE 2.9 mg/dL (0.6-1.0); GFR 16.8; GLUCOSE 81 mg/dL (70-99); POTASSIUM 4.1 mmol/L (3.5-5.1); SODIUM 140 mmol/L (136-145)
[2018-02-13] MEDS ORDERED: DARBEPOETIN ALFA 60 MCG/0.3 ML DISP.SYRIN. SQ (21:00)
== END 2018-02-13 11:30 | disposition home or self-care (01) | DRG 698 ==
LOC: INTRAD 10:30 → 5 NORTH 11:25
PROC: 0T25X0Z Change Drainage Device in Kidney, External Approach (ICD-10-PCS; principal; 2018-02-12)
PROC: 5A1D70Z Performance of Urinary Filtration, Intermittent, Less than 6 Hours Per Day (ICD-10-PCS; 2018-02-12)
DX: T83.022A Displacement of nephrostomy catheter, initial encounter (principal); N18.6 End stage renal disease; N17.9 Acute kidney failure, unspecified; N13.30 Unspecified hydronephrosis; D64.9 Anemia, unspecified; C53.9 Malignant neoplasm of cervix uteri, unspecified; Z82.49 Family history of ischemic heart disease and other diseases of the circulatory system; N13.8 Other obstructive and reflux uropathy; Z88.5 Allergy status to narcotic agent; Y73.1 Therapeutic (nonsurgical) and rehabilitative gastroenterology and urology devices associated with adverse incidents; Y65.8 Other specified misadventures during surgical and medical care; Z99.2 Dependence on renal dialysis
CPT/HCPCS: 36415; 50432; 50435; 80048; 85025; 99152; 99153; C1729; C1769; C1894; G0378; G0379; J1956; J2250; J3010

== ENCOUNTER 2018-02-22 12:20 | Outpatient (CLI) | payer OTHER ==
[2018-02-22] MEDS ORDERED: HEPARIN for IV BOLUS 10,000 UNIT/10 ML VIAL. (12:59)
[2018-02-22] MEDS ORDERED: LIDOCAINE 2%/EPI 1:100,000 20 ML VIAL. (12:59)
[2018-02-22] MEDS ORDERED: MIDAZOLAM HCL/PF 2 MG/2 ML VIAL. (13:02)
[2018-02-22] MEDS ORDERED: fentaNYL PF VIAL 100 MCG/2 ML VIAL (13:03)
[2018-02-22] MEDS: LIDOCAINE 2%/EPI 1:100,000 20 ML VIAL. IJ (14:00)
[2018-02-22] MEDS: fentaNYL PF VIAL 100 MCG/2 ML VIAL IV (14:01)
[2018-02-22] MEDS: MIDAZOLAM HCL/PF 2 MG/2 ML VIAL. IV (14:01)
== END 2018-02-22 15:00 | disposition home or self-care (01) ==
LOC: INTRAD 12:20
DX: T82.41XA Breakdown (mechanical) of vascular dialysis catheter, initial encounter (principal); N18.6 End stage renal disease; F41.9 Anxiety disorder, unspecified; Z85.41 Personal history of malignant neoplasm of cervix uteri; Z85.51 Personal history of malignant neoplasm of bladder; Z90.5 Acquired absence of kidney; Z86.2 Personal history of diseases of the blood and blood-forming organs and certain disorders involving the immune mechanism; Z98.890 Other specified postprocedural states; Y83.8 Other surgical procedures as the cause of abnormal reaction of the patient, or of later complication, without mention of misadventure at the time of the procedure; Y92.89 Other specified places as the place of occurrence of the external cause
CPT/HCPCS: 36581; 77001; 99152; 99153; C1750; C1769; J0690; J2250; J3010; J3490

== ENCOUNTER → 2018-03-24 | Outpatient (CLI) | payer OTHER ==
[2018-03-24 08:49] LABS: HEMATOCRIT 21.7 % (36.0-47.0); HEMOGLOBIN 7.1 g/dL (12.0-15.5); MEAN CORPUSCULAR HGB CONC 33 g/dL (31-37)
[2018-03-24] MEDS: ACETAMINOPHEN 325 MG TABLET. PO (09:38)
[2018-03-24] MEDS: diphenhydrAMINE HCL 25 MG CAPSULE PO (09:38)
[2018-03-24 09:58] LABS: IMMEDIATE SPIN CROSSMATCH 1 1
[2018-03-24] MEDS: FUROSEMIDE 20 MG/2 ML VIAL. IVP (11:22)
== END | disposition home or self-care (01) ==
LOC: OPS 08:13
DX: D64.81 Anemia due to antineoplastic chemotherapy (principal); T45.1X5A Adverse effect of antineoplastic and immunosuppressive drugs, initial encounter; C52 Malignant neoplasm of vagina; N18.6 End stage renal disease; D63.1 Anemia in chronic kidney disease; F41.9 Anxiety disorder, unspecified; E66.01 Morbid (severe) obesity due to excess calories; F17.210 Nicotine dependence, cigarettes, uncomplicated; Z68.20 Body mass index [BMI] 20.0-20.9, adult; Z90.5 Acquired absence of kidney; Z99.2 Dependence on renal dialysis; Z85.51 Personal history of malignant neoplasm of bladder; Z85.41 Personal history of malignant neoplasm of cervix uteri; Z86.2 Personal history of diseases of the blood and blood-forming organs and certain disorders involving the immune mechanism
CPT/HCPCS: 36415; 36430; 85014; 85018; 86850; 86900; 86901; 86920; 96374; P9016; Q0163

== ENCOUNTER 2018-04-01 06:50 | Outpatient (CLI) | payer OTHER ==
[2018-04-01 07:18] LABS: BASO % 0 % (0-3); EOS % 1 % (0-3); HEMATOCRIT 23.9 % (36.0-47.0); HEMOGLOBIN 8.1 g/dL (12.0-15.5); LYMPH # 0.2 x10^3/uL (1.0-4.8); LYMPH % 9 % (24-48); MEAN CORPUSCULAR HEMOGLOBIN 30 pg (25-35); MEAN CORPUSCULAR HGB CONC 34 g/dL (31-37); MEAN CORPUSCULAR VOLUME 89 fL (79-100); MONO # 0.2 x10^3/uL (0.0-1.1); MONO % 11 % (0-9); NEUT # 1.7 x10^3uL (1.8-7.7); NEUT % 79 % (31-73); PLATELET COUNT 199 x10^3/uL (140-400); RED BLOOD COUNT 2.68 x10^6/uL (3.50-5.40); WHITE BLOOD COUNT 2.2 x10^3/uL (4.0-11.0)
[2018-04-01 07:19] LABS: ADD MAN DIFF? YES
[2018-04-01 07:59] LABS: INR 1.1 (0.8-1.1); PROTHROMBIN TIME PATIENT 13.6 SEC (11.7-14.0)
[2018-04-01] MEDS ORDERED: LIDOCAINE WITH 8.4% SOD BICARB 3 ML DISP.SYRIN. (08:28)
[2018-04-01] MEDS ORDERED: IOHEXOL 240 MG/ML 50ML VIAL. (08:28)
[2018-04-01] MEDS ORDERED: MIDAZOLAM HCL/PF 2 MG/2 ML VIAL. ×2 (08:31→08:47)
[2018-04-01] MEDS ORDERED: fentaNYL PF VIAL 100 MCG/2 ML VIAL (08:31)
[2018-04-01 09:17] LABS: % BANDS 12 % (0-9); % EOS 2 % (0-5); % LYMPHS 6 % (24-48); % MONOS 6 % (0-10); % SEGS 74 % (35-66); PLT ESTIMATE ADEQUATE (ADEQUATE)
[2018-04-01] MEDS: IOHEXOL 240 MG/ML 50ML VIAL. IJ (10:00)
[2018-04-01] MEDS: MIDAZOLAM HCL/PF 2 MG/2 ML VIAL. IV (10:00)
[2018-04-01] MEDS: fentaNYL PF VIAL 100 MCG/2 ML VIAL IV (10:00)
[2018-04-01] MEDS: LIDOCAINE WITH 8.4% SOD BICARB 3 ML DISP.SYRIN. IJ (10:00)
== END 2018-04-01 10:50 | disposition home or self-care (01) ==
LOC: INTRAD 06:50
DX: C53.9 Malignant neoplasm of cervix uteri, unspecified (principal); F41.9 Anxiety disorder, unspecified; D64.9 Anemia, unspecified; Z88.5 Allergy status to narcotic agent; Z98.890 Other specified postprocedural states; Z85.51 Personal history of malignant neoplasm of bladder; Z90.5 Acquired absence of kidney
CPT/HCPCS: 36415; 50431; 50435; 85007; 85025; 85610; 99152; 99153; C1729; C1769; J2250; J3010; Q9966

== ENCOUNTER → 2018-06-22 | Outpatient (CLI) | payer OTHER ==
[2018-04-22 14:15] VITALS: BP 113/68
[~2018-06-22] MED LIST changes: +ACET325T9 PO; +APIX5TAB PO; +CARB10VI IV; +CONTRAST GIVEN. MC PRN; +IOHEXOL 240 MG/ML 50ML VIAL. PO ONE; +LORA-434 PO; +LORA1TAB PO; -MIDAZOLAM HCL/PF 2 MG/2 ML VIAL.; +MIRT15TA PO; +NITR100C PO; +ONDA8TAB9 PO; +OXYB5TAB7 PO; +OXYC-323 PO; +OXYC5TAB95 PO; -fentaNYL PF VIAL 100 MCG/2 ML VIAL
--- NOTE | 2018-06-22 11:49 | RAD ---
EXAM: CT chest without IV contrast. CLINICAL HISTORY: CERVICAL CARCINOMA S/P TREATMENT 1 MONTHS F/U COMPARISON: 01/28/2018, PET CT 02/11/2018 TECHNIQUE: CT of the abdomen and pelvis without intravenous contrast. Oral contrast was administered. Axial, coronal and sagittal reformatted images were generated. PQRS compliance Statement One or more of the following individualized dose reduction techniques were utilized for this study: 1. Automated exposure control 2. Adjustment of the mA and/or kV according to patient size 3. Use of iterative reconstruction technique FINDINGS: Lung bases are clear. Abdomen/pelvis: No focal liver lesion. Gallbladder is unremarkable. No intra or extrahepatic biliary ductal dilatation is seen. Spleen and pancreas are grossly unremarkable. Bilateral nephrostomy tubes are seen. No hydronephrosis. The left kidney is small. No abdominal or pelvic lymphadenopathy by size criteria. Moderate colonic stool content is seen. Oral contrast material is seen extending to the level of the distal ileum. Diffuse fat infiltration is again seen about the lower uterus and decompressed bladder likely from known cervical cancer. The previously seen right adnexal lesion is not as well delineated on today's exam. Bones: Degenerative changes centered at the symphysis pubis are noted. No definite aggressive osseous lesion is seen. IMPRESSION: 1. Diffuse fat infiltration is seen within the pelvis from known cervical cancer and likely associated posttreatment change. The previously seen right adnexal nodule is not well seen, possibly smaller or partially obscured by adjacent fat infiltration. 2. No abdominal or pelvic lymphadenopathy by size criteria. 3. Bilateral nephrostomy tubes are in within the renal pelves. Electronically signed by: Farhan Levine MD (06/22/2018 11:45 AM) [facility]
== END | disposition home or self-care (01) ==
LOC: CT 09:08
PROVIDERS: ATTEND Radiology Radiation Oncology
DX: C53.9 Malignant neoplasm of cervix uteri, unspecified (principal); N18.3 Chronic kidney disease, stage 3 (moderate); Z93.6 Other artificial openings of urinary tract status; Z88.5 Allergy status to narcotic agent; Z87.891 Personal history of nicotine dependence; Z90.5 Acquired absence of kidney
CPT/HCPCS: 74176; Q9966

== ENCOUNTER 2018-08-05 06:48 | Outpatient (CLI) | payer OTHER ==
[2018-08-05] VITALS (7 sets, daily range): BP systolic 102–123; BP diastolic 66–79
[~2018-08-05] VITALS: Ht 167.6 cm; Wt 48.1 kg
[~2018-08-05 06:48] MED LIST changes: -CONTRAST GIVEN. MC PRN; -IOHEXOL 240 MG/ML 50ML VIAL. PO ONE
[2018-08-05 07:39] LABS: BASO % 1 % (0-3); EOS # 0.2 x10^3/uL (0.0-0.7); EOS % 3 % (0-3); HEMATOCRIT 33.7 % (36.0-47.0); HEMOGLOBIN 11.5 g/dL (12.0-15.5); LYMPH # 0.7 x10^3/uL (1.0-4.8); LYMPH % 14 % (24-48); MEAN CORPUSCULAR HEMOGLOBIN 34 pg (25-35); MEAN CORPUSCULAR HGB CONC 34 g/dL (31-37); MEAN CORPUSCULAR VOLUME 100 fL (79-100); MONO # 0.4 x10^3/uL (0.0-1.1); MONO % 9 % (0-9); NEUT # 3.5 x10^3uL (1.8-7.7); NEUT % 73 % (31-73); PLATELET COUNT 239 x10^3/uL (140-400); RED BLOOD COUNT 3.37 x10^6/uL (3.50-5.40); RED CELL DISTRIBUTION WIDTH 14.3 % (11.5-14.5); WHITE BLOOD COUNT 4.9 x10^3/uL (4.0-11.0)
[2018-08-05] MEDS ORDERED: MIDAZOLAM HCL/PF 2 MG/2 ML VIAL. ONE (08:19)
[2018-08-05] MEDS ORDERED: fentaNYL PF VIAL 100 MCG/2 ML VIAL ONE (08:19)
[2018-08-05] MEDS ORDERED: fentaNYL PF VIAL 100 MCG/2 ML VIAL IV ONE (08:30)
[2018-08-05] MEDS ORDERED: MIDAZOLAM HCL/PF 2 MG/2 ML VIAL. IV ONE (08:30)
[2018-08-05] MEDS ORDERED: LIDOCAINE WITH 8.4% SOD BICARB 3 ML DISP.SYRIN. ONE (08:32)
[2018-08-05] MEDS ORDERED: IOHEXOL 240 MG/ML 50ML VIAL. ONE (08:33)
[2018-08-05] MEDS ORDERED: LIDOCAINE WITH 8.4% SOD BICARB 3 ML DISP.SYRIN. IJ ONE (09:30)
[2018-08-05] MEDS ORDERED: CONTRAST GIVEN. MC PRN (09:30)
[2018-08-05] MEDS ORDERED: IOHEXOL 240 MG/ML 50ML VIAL. IJ ONE (09:30)
== END 2018-08-05 10:50 | disposition home or self-care (01) ==
LOC: INTRAD 06:48
PROVIDERS: ATTEND Internal Medicine Hematology & Oncology
DX: Z46.6 Encounter for fitting and adjustment of urinary device (principal); Z88.5 Allergy status to narcotic agent; Z85.41 Personal history of malignant neoplasm of cervix uteri; Z99.2 Dependence on renal dialysis; F17.210 Nicotine dependence, cigarettes, uncomplicated; Z79.01 Long term (current) use of anticoagulants; Z79.899 Other long term (current) drug therapy
CPT/HCPCS: 36415; 50435; 85025; 85610; 99152; C1729; C1769; J0690; J2250; J3010; Q9966

== ENCOUNTER 2018-08-22 00:30 | Inpatient (IN) | payer SELFPAY ==
[~2018-08-22] VITALS: Ht 167.6 cm; Wt 52.6 kg
[2018-08-22] VITALS (29 sets, daily range): BP systolic 58–148; BP diastolic 35–81
[2018-08-22 01:08] LABS: BASO # 0.1 x10^3/uL (0.0-0.2); BASO % 0 % (0-3); EOS % 0 % (0-3); HEMATOCRIT 34.8 % (36.0-47.0); HEMOGLOBIN 12.1 g/dL (12.0-15.5); LYMPH # 0.4 x10^3/uL (1.0-4.8); LYMPH % 3 % (24-48); MEAN CORPUSCULAR HEMOGLOBIN 34 pg (25-35); MEAN CORPUSCULAR HGB CONC 35 g/dL (31-37); MEAN CORPUSCULAR VOLUME 98 fL (79-100); MONO # 1.1 x10^3/uL (0.0-1.1); MONO % 7 % (0-9); NEUT % 90 % (31-73); PLATELET COUNT 204 x10^3/uL (140-400); RED BLOOD COUNT 3.57 x10^6/uL (3.50-5.40); WHITE BLOOD COUNT 16.6 x10^3/uL (4.0-11.0)
[2018-08-22 01:21] LABS: CALCIUM 9.9 mg/dL (8.5-10.1); CREATININE 2.9 mg/dL (0.6-1.0); GFR 16.7
[2018-08-22 01:27] LABS: ALBUMIN 2.9 g/dL (3.4-5.0); ALBUMIN/GLOBULIN RATIO 0.7 (1.0-1.7); TOTAL BILIRUBIN 0.5 mg/dL (0.2-1.0); TOTAL PROTEIN 6.9 g/dL (6.4-8.2)
[2018-08-22 01:39] LABS: INFLUENZA A PATIENT NEGATIVE (NEGATIVE); INFLUENZA B PATIENT NEGATIVE (NEGATIVE)
--- NOTE | 2018-08-22 02:07 | PHYS DOC ---
Past Medical History Past Medical History: Other Additional Past Medical Histor: KIDNEY FAILURE Past Surgical History: Additional Past Surgical Histo: R CHEST DIALYSIS PORT, R ARM FISTULA, BILAT NEPH TUBES Alcohol Use: None Drug Use: None Adult General Chief Complaint Chief Complaint: FEVER HPI HPI Patient is a 58 year old female who presents with fever at home of 103.0. Patient has no acute complaints but her caregiver said that she seemed febrile and little flushed at home. Patient does have end-stage renal disease and recently had nephrostomy tubes placed and does make urine from them. She is normally dialyzed Wednesdays and Fridays and states she had a normal dialysis yesterday. 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 She underwent diagnosis at cystoscopy and biopsy on 02/01/2018. She underwent bilateral nephrostomy tube placement, tunnel catheter placement for hemodialysis and staging PET/CT scan. No occult metastatic disease was seen on imaging. She completed 63 Gy of regional radiation to the vagina, bladder, cervix and uterus with sensitizing carboplatin chemotherapy completed here on 04/15/2018. She now returns 2 months following treatment. .....Depending on the outcome of her follow-up in 3 months, we will then consider urologic consultation to address converting her nephrostomy drainage to an ileal conduit. Review of Systems Review of Systems Constitutional: Denies fever or chills, positive for weakness[] Eyes: Denies change in visual acuity, redness, or eye pain [] HENT: Denies nasal congestion or sore throat [] Respiratory: Denies cough or shortness of breath [] Cardiovascular: No additional information not addressed in HPI [] GI: Denies abdominal pain, nausea, vomiting, bloody stools or diarrhea [] : Denies dysuria or hematuria [] Musculoskeletal: Denies back pain or joint pain [] Integument: Denies rash or skin lesions [] Neurologic: Denies headache, focal weakness or sensory changes [] Endocrine: Denies polyuria or polydipsia [] All other systems were reviewed and found to be within normal limits, except as documented in this note. Current Medications Current Medications Current Medications Medications (Trade) Dose Ordered Sig/Jordon Start Time Stop Time Status Last Admin Dose Admin Acetaminophen (Tylenol) 1,000 mg 1X ONCE 08/22/18 03:15 08/22/18 03:16 DC 08/22/18 03:05 1,000 MG Morphine Sulfate (Morphine Sulfate) 2 mg PRN Q2HR PRN 08/22/18 04:30 08/23/18 04:29 Ondansetron HCl (Zofran) 4 mg PRN Q8HRS PRN 08/22/18 04:30 08/23/18 04:29 Piperacillin Sod/ Tazobactam Sod 2.25 gm/Sodium Chloride 50 ml @ 100 mls/hr 1X ONCE 08/22/18 02:30 08/22/18 02:59 DC 08/22/18 02:27 100 MLS/HR Piperacillin Sod/ Tazobactam Sod 3.375 gm/Sodium Chloride 50 ml @ 100 mls/hr 1X ONCE 08/22/18 02:15 08/22/18 02:44 UNV Sodium Chloride 500 ml @ 500 mls/hr 1X ONCE 08/22/18 03:30 08/22/18 04:29 DC 08/22/18 03:30 500 MLS/HR Vancomycin HCl 1.25 gm/Sodium Chloride 250 ml @ 166.667 mls/hr 1X ONCE 08/22/18 03:00 08/22/18 04:29 DC 08/22/18 03:00 166.667 MLS/HR Allergies Allergies Allergies Coded Allergies Type Severity Reaction Last Updated Verified No Known Medication Allergies Allergy Unknown 04/22/18 Yes codeine Adverse Reaction Mild Nausea 04/22/18 Yes Physical Exam Physical Exam Constitutional: Well developed, well nourished, no acute distress, non-toxic appearance. [] HENT: Normocephalic, atraumatic, bilateral external ears normal, oropharynx moist, no oral exudates, nose normal. [] Eyes: PERRLA, EOMI, conjunctiva normal, no discharge. [] Neck: Normal range of motion, no tenderness, supple, no stridor. [] Cardiovascular:Heart rate regular rhythm, no murmur [] Lungs & Thorax: Bilateral breath sounds clear to auscultation [] Abdomen: Bowel sounds normal, soft, no tenderness, no masses, no pulsatile masses. [] Skin: Warm, dry, no erythema, no rash. [] Back: No tenderness, no CVA tenderness. [] Extremities: No tenderness, no cyanosis, no clubbing, ROM intact, no edema. [] Neurologic: Alert and oriented X 3, normal motor function, normal sensory function, no focal deficits noted. [] Psychologic: Affect normal, judgement normal, mood normal. [] Current Patient Data Vital Signs Vital Signs Date Time Temp Pulse Resp B/P (MAP) Pulse Ox O2 Delivery O2 Flow Rate FiO2 08/22/18 00:52 99.2 137 18 93/55 (68) 96 Room Air 99.2 Lab Values Laboratory Tests Test 08/22/18 00:55 08/22/18 01:12 08/22/18 02:19 White Blood Count 16.6 x10^3/uL (4.0-11.0) H Red Blood Count 3.57 x10^6/uL (3.50-5.40) Hemoglobin 12.1 g/dL (12.0-15.5) Hematocrit 34.8 % (36.0-47.0) L Mean Corpuscular Volume 98 fL (79-100) Mean Corpuscular Hemoglobin 34 pg (25-35) Mean Corpuscular Hemoglobin Concent 35 g/dL (31-37) Red Cell Distribution Width 14.0 % (11.5-14.5) Platelet Count 204 x10^3/uL (140-400) Neutrophils (%) (Auto) 90 % (31-73) H Lymphocytes (%) (Auto) 3 % (24-48) L Monocytes (%) (Auto) 7 % (0-9) Eosinophils (%) (Auto) 0 % (0-3) Basophils (%) (Auto) 0 % (0-3) Neutrophils # (Auto) 15.0 x10^3uL (1.8-7.7) H Lymphocytes # (Auto) 0.4 x10^3/uL (1.0-4.8) L Monocytes # (Auto) 1.1 x10^3/uL (0.0-1.1) Eosinophils # (Auto) 0.0 x10^3/uL (0.0-0.7) Basophils # (Auto) 0.1 x10^3/uL (0.0-0.2) Platelet Estimate Pending Sodium Level 137 mmol/L (136-145) Potassium Level 4.0 mmol/L (3.5-5.1) Chloride Level 100 mmol/L (98-107) Carbon Dioxide Level 24 mmol/L (21-32) Anion Gap 13 (6-14) Blood Urea Nitrogen 35 mg/dL (7-20) H Creatinine 2.9 mg/dL (0.6-1.0) H Estimated GFR (Cockcroft-Gault) 16.7 BUN/Creatinine Ratio 12 (6-20) Glucose Level 137 mg/dL (70-99) H Lactic Acid Level 2.2 mmol/L (0.4-2.0) H Calcium Level 9.9 mg/dL (8.5-10.1) Total Bilirubin 0.5 mg/dL (0.2-1.0) Aspartate Amino Transferase (AST) 24 U/L (15-37) Alanine Aminotransferase (ALT) 17 U/L (14-59) Alkaline Phosphatase 64 U/L (46-116) Total Protein 6.9 g/dL (6.4-8.2) Albumin 2.9 g/dL (3.4-5.0) L Albumin/Globulin Ratio 0.7 (1.0-1.7) L Influenza Type A Antigen Negative (NEGATIVE) Influenza Type B Antigen Negative (NEGATIVE) Urine Collection Type Unknown Urine Color Yellow Urine Clarity Clear Urine pH 6.0 Urine Specific [place] 1.015 Urine Protein 100 mg/dL (NEG-TRACE) Urine Glucose (UA) Negative mg/dL (NEG) Urine Ketones (Stick) Negative mg/dL (NEG) Urine Blood Small (NEG) Urine Nitrite Negative (NEG) Urine Bilirubin Negative (NEG) Urine Urobilinogen Dipstick 0.2 mg/dL (0.2 mg/dL) Urine Leukocyte Esterase Small (NEG) Urine RBC Occ /HPF (0-2) Urine WBC 5-10 /HPF (0-4) Urine Squamous Epithelial Cells Few /LPF Urine Bacteria Many /HPF (0-FEW) Urine Mucus Slight /LPF Laboratory Tests 08/22/18 00:55 Laboratory Tests 08/22/18 00:55 EKG EKG Sinus tach at a rate of 135 with rare PVC[] Radiology/Procedures Radiology/Procedures Portable chest x-raydialysis catheter in place with no evidence of acute infiltrate[] Course & Med Decision Making Course & Med Decision Making Pertinent Labs and Imaging studies reviewed. (See chart for details) She has improved with IV hydration and medications and is resting comfortably at this time. Case was discussed with the music internship, Dr. Bruner who was aware of the blood pressure and that we were bolusing her incrementally. When I also discussed whether or not to start dopamine given that the patient normally has a low blood pressure he agreed as well that we would hold on at that time since the patient was awake and alert. Dr. Jones was called and is also aware of the admission to the ICU [] Dragon Disclaimer Dragon Disclaimer This electronic medical record was generated, in whole or in part, using a voice recognition dictation system. Departure Departure Impression: Primary Impression: Sepsis Additional Impression: ESRD (end stage renal disease) on dialysis Disposition: ADMITTED INPATIENT Admitting Physician: Emily Jones Condition: IMPROVED Referrals: CHINMAY CERDA MD (PCP) Problem Qualifiers ANDREI WHITLEY MD Aug 22, 2018 02:06
[2018-08-22] MEDS ORDERED: PIPERACILLIN/TAZOBACTAM 3.375 GM in IV NORMAL SALINE 50ML 50 ML IV ONE (02:15)
[2018-08-22] MEDS ORDERED: IV NORMAL SALINE 500ML BAG 500 ML IV ONE ×4 (02:30→06:30)
[2018-08-22] MEDS ORDERED: PIPERACILLIN/TAZOBACTAM 2.25 GM in IV NORMAL SALINE 50ML 50 ML IV ONE (02:30)
[2018-08-22] MEDS ORDERED: VANCOMYCIN 1.25 GM in IV NORMAL SALINE 250ML 250 ML IV ONE (03:00)
[2018-08-22] MEDS ORDERED: ACETAMINOPHEN 500 MG TABLET PO ONE (03:15)
[2018-08-22 03:21] LABS: BILIRUBIN,URINE NEGATIVE (NEG); CLARITY,URINE CLEAR; COLOR,URINE YELLOW; NITRITE,URINE NEGATIVE (NEG); PROTEIN,URINE 100 mg/dL (NEG-TRACE); UROBILINOGEN,URINE 0.2 mg/dL (0.2 mg/dL)
[2018-08-22 03:43] LABS: BACTERIA,URINE MANY /HPF (0-FEW); RBC,URINE OCC /HPF (0-2)
[2018-08-22 03:44] LABS: SQUAMOUS EPITHELIAL CELL,UR FEW /LPF
--- NOTE | 2018-08-22 04:18 | RAD ---
EXAM: AP View of the chest DATE: 08/22/2018 1:01 AM INDICATION: fever COMPARISON: 01/28/2018 FINDINGS: Right IJ vascular catheter tip projects over the SVC/right atrium. The heart is not enlarged. Atherosclerotic calcifications of aorta are seen. Mediastinal and hilar contours are normal. No focal parenchymal airspace opacity. No pleural effusion or pneumothorax. IMPRESSION: 1. Right IJ vascular catheter tip projects over the SVC/right atrium. 2. No radiographic evidence for acute cardiopulmonary process. Electronically signed by: Farhan Levine MD (08/22/2018 4:15 AM) [facility] [id number]
[2018-08-22] MEDS ORDERED: ONDANSETRON PF 4 MG/2 ML VIAL. IV PRN ×2 (04:30→09:00)
[2018-08-22] MEDS ORDERED: MORPHINE SULFATE 2 MG/ML VIAL. IV PRN (04:30)
[2018-08-22 04:59] LABS: BASO % 0 % (0-3); EOS % 0 % (0-3); HEMATOCRIT 28.2 % (36.0-47.0); HEMOGLOBIN 9.7 g/dL (12.0-15.5); LYMPH # 0.3 x10^3/uL (1.0-4.8); LYMPH % 2 % (24-48); MEAN CORPUSCULAR HEMOGLOBIN 34 pg (25-35); MEAN CORPUSCULAR HGB CONC 35 g/dL (31-37); MEAN CORPUSCULAR VOLUME 98 fL (79-100); MONO # 1.1 x10^3/uL (0.0-1.1); MONO % 7 % (0-9); NEUT # 14.1 x10^3uL (1.8-7.7); NEUT % 91 % (31-73); PLATELET COUNT 178 x10^3/uL (140-400); RED BLOOD COUNT 2.86 x10^6/uL (3.50-5.40); WHITE BLOOD COUNT 15.5 x10^3/uL (4.0-11.0)
[2018-08-22 05:20] LABS: % BANDS 19 % (0-9); % EOS 1 % (0-5); % LYMPHS 2 % (24-48); % METAS 1 % (0-0); % MONOS 3 % (0-10); % SEGS 74 % (35-66)
[2018-08-22 05:21] LABS: PLT ESTIMATE ADEQUATE (ADEQUATE)
[2018-08-22] MEDS ORDERED: PIPERACILLIN/TAZOBACTAM 3.375 GM in IV NORMAL SALINE 50ML 50 ML IV SCH (06:00)
[2018-08-22] MEDS ORDERED: NOREPINEPHRIN 8MG/250ML PREMIX 250 ML IV ONE (06:11)
[2018-08-22] MEDS ORDERED: NOREPINEPHRIN 8MG/250ML PREMIX 250 ML IV PRN (06:15)
[2018-08-22] MEDS: VANCOMYCIN PER PHARMACY MC PRN ×2 (06:21→09:11)
[2018-08-22] MEDS ORDERED: ACETAMINOPHEN/CODEINE 300/30MG TABLET. PO PRN (09:00)
[2018-08-22] MEDS ORDERED: ONDANSETRON ODT 4 MG TAB.RAPDIS. PO PRN (09:15)
--- NOTE | 2018-08-22 09:26 | EKG ---
[facility] [address] [place] [address] Test Date: 2018-08-22 Test Time: 00:44:35 Pat Name: FEMI MARROQUIN Department: Room: [facility] 1 Gender: F [employer] Roller: MARYCARMEN : 1960 Requested By: ANDREI WHITLEY Order Number: [id number] Reading MD: Eliazar Benton MD Measurements Intervals [place] Rate: 135 P: UT: QRS: 62 QRSD: 76 T: 79 QT: 340 QTc: [address] PVC Electronically Signed On 08-23-2018 9:12:06 CDT by Eliazar Benton MD
[2018-08-22] MEDS ORDERED: APIXABAN 2.5 MG TABLET. PO SCH (09:30)
[2018-08-22] MEDS: LORazepam 1 MG TABLET PO SCH ×3 (10:01→22:00)
[2018-08-22] MEDS: IV NORMAL SALINE 1000ML BAG 1,000 ML IV SCH ×3 (10:02→23:36)
--- NOTE | 2018-08-22 10:24 | PDOC1 ---
History and Physical Date of Admission Date of Admission DATE: 08/22/18 TIME: 10:18 Identification/Chief Complaint Chief Complaint Fevers at home Source Source: Caregiver, Chart review, Patient History of Present Illness History of Present Illness 58-year-old female known to me when I admitted her in January 2018 after she needed some replacement of bilateral nephrostomy tubes by IR. She has bilateral nephrostomy tubes because she is diagnosed cervical cancer, with mechanical issues that caused renal obstruction hence now has bilateral nephrostomy tubes, right draining more urine than the left. IR is Dr. morley. Last seen maybe a week or a month ago and advised to leave the left nephrostomy tube in as it is draining some though not great. She is also chemotherapy patient, has a right indwelling Port-A-Cath. Occasionally being changed and last changed maybe a month ago. There is some redness there but patient claims that it's much better since started on IV antibiotics since admission. Chest x- ray is negative for any acute process but urinalysis shows 5-10 WBC with 0 or moderate bacteria. Urine cultures pending. She does have history of UTI. She denies any symptoms of urinary frequency hesitancy or urgency. Low-grade temperatures here in the hospital, had temperatures at home hence admitted with sepsis. She is on levo fed at 7.5 mics for low blood pressure. As per family she runs low, but usually 110 systolic high pen may drop down during dialysis. Known patient of Dr. Boateng. No ambulation issues, no appetite this breakfast but usually on good days she eats decently as per family Past Medical History Cardiovascular: No pertinent hx Pulmonary: No pertinent hx GI: No pertinent hx Heme/Onc: No pertinent hx Hepatobiliary: No pertinent hx Psych: No pertinent hx Renal/: No pertinent hx Endocrine: No pertinent hx Past Surgical History Past Surgical History: , Cystoscopy, Other (bilateral nephrostomy tubes), No pertinent history Family History Family History: No Significant, Hypertension Social History Smoke: No ALCOHOL: none Drugs: None Current Medications Current Medications Current Medications Piperacillin Sod/ Tazobactam Sod 3.375 gm/Sodium Chloride 50 ml @ 100 mls/hr 1X ONCE IV ; Start 08/22/18 at 02:15; Stop 08/22/18 at 02:44; Status UNV Sodium Chloride 500 ml @ 500 mls/hr 1X ONCE IV Last administered on at 02:27; Start 08/22/18 at 02:30; Stop 08/22/18 at 03:29; Status DC Vancomycin HCl 1.25 gm/Sodium Chloride 250 ml @ 166.667 mls/hr 1X ONCE IV Last administered on 08/22/18at 03:00; Start 08/22/18 at 03:00; Stop 08/22/18 at 04:29; Status DC Piperacillin Sod/ Tazobactam Sod 2.25 gm/Sodium Chloride 50 ml @ 100 mls/hr 1X ONCE IV Last administered on 08/22/18at 02:27; Start 08/22/18 at 02:30; Stop 08/22/18 at 02:59; Status DC Acetaminophen (Tylenol) 1,000 mg 1X ONCE PO Last administered on 08/22/18at 03 :05; Start 08/22/18 at 03:15; Stop 08/22/18 at 03:16; Status DC Sodium Chloride 500 ml @ 500 mls/hr 1X ONCE IV Last administered on at 03:30; Start 08/22/18 at 03:30; Stop 08/22/18 at 04:29; Status DC Ondansetron HCl (Zofran) 4 mg PRN Q8HRS PRN IV NAUSEA/VOMITING 1ST CHOICE; Start 08/22/18 at 04:30; Stop 08/22/18 at 08:59; Status DC Morphine Sulfate (Morphine Sulfate) 2 mg PRN Q2HR PRN IV SEVERE PAIN; Start at 04:30; Stop 08/23/18 at 04:29 Piperacillin Sod/ Tazobactam Sod 3.375 gm/Sodium Chloride 50 ml @ 100 mls/hr Q6HRS IV ; Start 08/22/18 at 06:00; Status UNV Sodium Chloride 500 ml @ 500 mls/hr 1X ONCE IV Last administered on at 06:17; Start 08/22/18 at 05:00; Stop 08/22/18 at 05:59; Status DC Piperacillin Sod/ Tazobactam Sod 2.25 gm/Sodium Chloride 50 ml @ 100 mls/hr Q8HRS IV ; Start 08/22/18 at 14:00 Vancomycin HCl (Vanco Per Pharmacy) 1 each PRN DAILY PRN MC SEE COMMENTS Last administered on 08/22/18at 09:11; Start 08/22/18 at 05:45 Norepinephrine Bitartrate 250 ml @ 1.875 mls/ hr CONT PRN IV SEE I/O RECORD Last administered on 08/22/18at 06:19; Start 08/22/18 at 06:15 Sodium Chloride 500 ml @ 500 mls/hr 1X ONCE IV Last administered on at 06:18; Start 08/22/18 at 06:30; Stop 08/22/18 at 07:29; Status DC Norepinephrine Bitartrate 250 ml @ As Directed STK-MED ONCE IV ; Start at 06:11; Stop 08/22/18 at 06:12; Status DC Vancomycin HCl (Vancomycin Random Level) 1 each 1X ONCE MC ; Start 08/23/18 at 05:00; Stop 08/23/18 at 05:01 Sodium Chloride 1,000 ml @ 125 mls/hr Q8H IV Last administered on 08/22/18at 10:02; Start 08/22/18 at 06:30 Ondansetron HCl (Zofran) 4 mg PRN Q6HRS PRN IV NAUSEA/VOMITING 1ST CHOICE; Start 08/22/18 at 09:00 Acetaminophen/ Codeine Phosphate (Tylenol #3) 1 tab PRN Q6HRS PRN PO MODERATE PAIN; Start 08/22/18 at 09:00 Acetaminophen (Tylenol) 500 mg PRN Q6HRS PRN PO MILD PAIN / TEMP; Start at 09:00 Apixaban (Eliquis) 2.5 mg BID PO ; Start 08/22/18 at 09:30; Stop 08/22/18 at 09:30; Status DC Lorazepam (Ativan) 1 mg Q8HRS PO Last administered on 08/22/18at 10:01; Start 08/22/18 at 09:30 Oxycodone/ Acetaminophen (Percocet 5/325) 1 tab PRN Q6HRS PRN PO SEVERE PAIN; Start 08/22/18 at 09:00 Mirtazapine (Remeron) 15 mg QHS PO ; Start 08/22/18 at 21:00 Ondansetron HCl (Zofran Odt) 8 mg PRN Q12HRS PRN PO NAUSEA/VOMITING; Start at 09:15 Apixaban (Eliquis) 5 mg BID PO ; Start 08/22/18 at 10:00 Lactobacillus Rhamnosus (Culturelle) 1 cap BID PO ; Start 08/22/18 at 12:00 Active Scripts Active Reported Eliquis (Apixaban) 5 Mg Tablet 5 Mg PO BID Remeron (Mirtazapine) 15 Mg Tablet 1 Tab PO QHS Lorazepam 1 Mg Tablet 1 Mg PO Q8HRS Zofran (Ondansetron Hcl) 8 Mg Tablet 8 Mg PO BID PRN Percocet 5-325 Mg Tablet (Oxycodone/Acetaminophen) 1 Each Tablet 1 Tab PO PRN Q6HRS PRN Allergies Allergies: Coded Allergies: No Known Medication Allergies (Verified Allergy, Unknown, 04/22/18) codeine (Verified Adverse Reaction, Mild, Nausea, 04/22/18) ROS Review of System Fevers, a full right-sided Port-A-Cath few days ago but not anymore Physical Exam General: Alert, Oriented X3, Cooperative, No acute distress HEENT: Atraumatic, PERRLA, EOMI, Mucous membr. moist/pink Lungs: Clear to auscultation, Normal air movement, Other (right indwelling Port -A-Cath with tip projecting to the appropriate position) Heart: S1S2, RRR, no thrills, no rubs Cardiovascular: S1 Abdomen: Normal bowel sounds, Soft, No tenderness, No hepatosplenomegaly, No masses, Other (bilateral nephrostomy tubes with right draining more urine than the left) Rectal Exam: not examined PELVIC: Nml ext genitalia Extremities: No clubbing, No cyanosis, No edema, Normal pulses, No tenderness/ swelling Neuro: Normal gait, Normal speech, Strength at 5/5 X4 ext, Normal tone, Sensation intact, Cranial nerves 3-12 NL, Reflexes 2+ Psych/Mental Status: Mental status NL, Mood NL Vitals Vitals Vital Signs Date Time Temp Pulse Resp B/P (MAP) Pulse Ox O2 Delivery O2 Flow Rate FiO2 08/22/18 10:00 99.1 100 16 140/81 (100) 98 Room Air 99.1 Labs Labs Laboratory Tests Test 08/22/18 00:55 08/22/18 01:12 08/22/18 02:19 08/22/18 04:49 White Blood Count 16.6 x10^3/uL (4.0-11.0) 15.5 x10^3/uL (4.0-11.0) Red Blood Count 3.57 x10^6/uL (3.50-5.40) 2.86 x10^6/uL (3.50-5.40) Hemoglobin 12.1 g/dL (12.0-15.5) 9.7 g/dL (12.0-15.5) Hematocrit 34.8 % (36.0-47.0) 28.2 % (36.0-47.0) Mean Corpuscular Volume 98 fL (79-100) 98 fL (79-100) Mean Corpuscular Hemoglobin 34 pg (25-35) 34 pg (25-35) Mean Corpuscular Hemoglobin Concent 35 g/dL (31-37) 35 g/dL (31-37) Red Cell Distribution Width 14.0 % (11.5-14.5) 14.0 % (11.5-14.5) Platelet Count 204 x10^3/uL (140-400) 178 x10^3/uL (140-400) Neutrophils (%) (Auto) 90 % (31-73) 91 % (31-73) Lymphocytes (%) (Auto) 3 % (24-48) 2 % (24-48) Monocytes (%) (Auto) 7 % (0-9) 7 % (0-9) Eosinophils (%) (Auto) 0 % (0-3) 0 % (0-3) Basophils (%) (Auto) 0 % (0-3) 0 % (0-3) Neutrophils # (Auto) 15.0 x10^3uL (1.8-7.7) 14.1 x10^3uL (1.8-7.7) Lymphocytes # (Auto) 0.4 x10^3/uL (1.0-4.8) 0.3 x10^3/uL (1.0-4.8) Monocytes # (Auto) 1.1 x10^3/uL (0.0-1.1) 1.1 x10^3/uL (0.0-1.1) Eosinophils # (Auto) 0.0 x10^3/uL (0.0-0.7) 0.0 x10^3/uL (0.0-0.7) Basophils # (Auto) 0.1 x10^3/uL (0.0-0.2) 0.0 x10^3/uL (0.0-0.2) Segmented Neutrophils % 74 % (35-66) Band Neutrophils % 19 % (0-9) Lymphocytes % 2 % (24-48) Monocytes % 3 % (0-10) Eosinophils % 1 % (0-5) Metamyelocytes % 1 % (0-0) Platelet Estimate Adequate (ADEQUATE) Sodium Level 137 mmol/L (136-145) Potassium Level 4.0 mmol/L (3.5-5.1) Chloride Level 100 mmol/L (98-107) Carbon Dioxide Level 24 mmol/L (21-32) Anion Gap 13 (6-14) Blood Urea Nitrogen 35 mg/dL (7-20) Creatinine 2.9 mg/dL (0.6-1.0) Estimated GFR (Cockcroft-Gault) 16.7 BUN/Creatinine Ratio 12 (6-20) Glucose Level 137 mg/dL (70-99) Lactic Acid Level 2.2 mmol/L (0.4-2.0) 0.9 mmol/L (0.4-2.0) Calcium Level 9.9 mg/dL (8.5-10.1) Total Bilirubin 0.5 mg/dL (0.2-1.0) Aspartate Amino Transf (AST/SGOT) 24 U/L (15-37) Alanine Aminotransferase (ALT/SGPT) 17 U/L (14-59) Alkaline Phosphatase 64 U/L (46-116) Total Protein 6.9 g/dL (6.4-8.2) Albumin 2.9 g/dL (3.4-5.0) Albumin/Globulin Ratio 0.7 (1.0-1.7) Influenza Type A Antigen Negative (NEGATIVE) Influenza Type B Antigen Negative (NEGATIVE) Group A Streptococcus Rapid Negative (NEGATIVE) Urine Collection Type Unknown Urine Color Yellow Urine Clarity Clear Urine pH 6.0 Urine Specific [place] 1.015 Urine Protein 100 mg/dL (NEG-TRACE) Urine Glucose (UA) Negative mg/dL (NEG) Urine Ketones (Stick) Negative mg/dL (NEG) Urine Blood Small (NEG) Urine Nitrite Negative (NEG) Urine Bilirubin Negative (NEG) Urine Urobilinogen Dipstick 0.2 mg/dL (0.2 mg/dL) Urine Leukocyte Esterase Small (NEG) Urine RBC Occ /HPF (0-2) Urine WBC 5-10 /HPF (0-4) Urine Squamous Epithelial Cells Few /LPF Urine Bacteria Many /HPF (0-FEW) Urine Mucus Slight /LPF Laboratory Tests Test 08/22/18 00:55 08/22/18 01:12 08/22/18 02:19 08/22/18 04:49 White Blood Count 16.6 x10^3/uL (4.0-11.0) 15.5 x10^3/uL (4.0-11.0) Red Blood Count 3.57 x10^6/uL (3.50-5.40) 2.86 x10^6/uL (3.50-5.40) Hemoglobin 12.1 g/dL (12.0-15.5) 9.7 g/dL (12.0-15.5) Hematocrit 34.8 % (36.0-47.0) 28.2 % (36.0-47.0) Mean Corpuscular Volume 98 fL (79-100) 98 fL (79-100) Mean Corpuscular Hemoglobin 34 pg (25-35) 34 pg (25-35) Mean Corpuscular Hemoglobin Concent 35 g/dL (31-37) 35 g/dL (31-37) Red Cell Distribution Width 14.0 % (11.5-14.5) 14.0 % (11.5-14.5) Platelet Count 204 x10^3/uL (140-400) 178 x10^3/uL (140-400) Neutrophils (%) (Auto) 90 % (31-73) 91 % (31-73) Lymphocytes (%) (Auto) 3 % (24-48) 2 % (24-48) Monocytes (%) (Auto) 7 % (0-9) 7 % (0-9) Eosinophils (%) (Auto) 0 % (0-3) 0 % (0-3) Basophils (%) (Auto) 0 % (0-3) 0 % (0-3) Neutrophils # (Auto) 15.0 x10^3uL (1.8-7.7) 14.1 x10^3uL (1.8-7.7) Lymphocytes # (Auto) 0.4 x10^3/uL (1.0-4.8) 0.3 x10^3/uL (1.0-4.8) Monocytes # (Auto) 1.1 x10^3/uL (0.0-1.1) 1.1 x10^3/uL (0.0-1.1) Eosinophils # (Auto) 0.0 x10^3/uL (0.0-0.7) 0.0 x10^3/uL (0.0-0.7) Basophils # (Auto) 0.1 x10^3/uL (0.0-0.2) 0.0 x10^3/uL (0.0-0.2) Segmented Neutrophils % 74 % (35-66) Band Neutrophils % 19 % (0-9) Lymphocytes % 2 % (24-48) Monocytes % 3 % (0-10) Eosinophils % 1 % (0-5) Metamyelocytes % 1 % (0-0) Platelet Estimate Adequate (ADEQUATE) Sodium Level 137 mmol/L (136-145) Potassium Level 4.0 mmol/L (3.5-5.1) Chloride Level 100 mmol/L (98-107) Carbon Dioxide Level 24 mmol/L (21-32) Anion Gap 13 (6-14) Blood Urea Nitrogen 35 mg/dL (7-20) Creatinine 2.9 mg/dL (0.6-1.0) Estimated GFR (Cockcroft-Gault) 16.7 BUN/Creatinine Ratio 12 (6-20) Glucose Level 137 mg/dL (70-99) Lactic Acid Level 2.2 mmol/L (0.4-2.0) 0.9 mmol/L (0.4-2.0) Calcium Level 9.9 mg/dL (8.5-10.1) Total Bilirubin 0.5 mg/dL (0.2-1.0) Aspartate Amino Transf (AST/SGOT) 24 U/L (15-37) Alanine Aminotransferase (ALT/SGPT) 17 U/L (14-59) Alkaline Phosphatase 64 U/L (46-116) Total Protein 6.9 g/dL (6.4-8.2) Albumin 2.9 g/dL (3.4-5.0) Albumin/Globulin Ratio 0.7 (1.0-1.7) Influenza Type A Antigen Negative (NEGATIVE) Influenza Type B Antigen Negative (NEGATIVE) Group A Streptococcus Rapid Negative (NEGATIVE) Urine Collection Type Unknown Urine Color Yellow Urine Clarity Clear Urine pH 6.0 Urine Specific [place] 1.015 Urine Protein 100 mg/dL (NEG-TRACE) Urine Glucose (UA) Negative mg/dL (NEG) Urine Ketones (Stick) Negative mg/dL (NEG) Urine Blood Small (NEG) Urine Nitrite Negative (NEG) Urine Bilirubin Negative (NEG) Urine Urobilinogen Dipstick 0.2 mg/dL (0.2 mg/dL) Urine Leukocyte Esterase Small (NEG) Urine RBC Occ /HPF (0-2) Urine WBC 5-10 /HPF (0-4) Urine Squamous Epithelial Cells Few /LPF Urine Bacteria Many /HPF (0-FEW) Urine Mucus Slight /LPF VTE Prophylaxis Ordered VTE Prophylaxis Devices: Yes VTE Pharmacological Prophylaxi: Yes Assessment/Plan Assessment/Plan Septic shock on low-dose pressor, likely UTI Possible UTI-history of UTI in the past Chest x-ray is no acute process Bilateral indwelling nephrostomy tubes secondary to mechanical obstruction from advanced cervical carcinoma-right draining more than the left-as per IR keep the left as it is draining some urine Cervical cancer, on chemotherapy-has one more chemotherapy therapy plan as outpatient-so far he could not see the spots as per last imaging per patient relay ESRD, known patient of Dr. Boateng Anemia of ESRD AK I/VMN Fevers History of DVT on Eliquis Plan: Resume home meds especially Eliquis-history of DVT this cancer patient I did add infectious disease consult because of sepsis Titrate levophed Keep ICU since still on levophed Urine culture Labs again tomorrow Regular diet No need for Marinol or Megace as she has good appetite otherwise at home on healthier days Discussed with multiple family members at bedside Full code [facility] 30 SHRUTHI HERNANDEZ MD Aug 22, 2018 10:24
[2018-08-22] MEDS: ACETAMINOPHEN 500 MG TABLET PO PRN ×2 (12:15→18:03)
[2018-08-22] MEDS: PIPERACILLIN/TAZOBACTAM 2.25 GM in IV NORMAL SALINE 50ML 50 ML IV SCH ×2 (12:49→23:35)
[2018-08-22] MEDS: LACTOBACILLUS RHAMNOSUS GG 1 CAPSULE. PO SCH ×2 (12:49→20:36)
--- NOTE | 2018-08-22 13:35 | PDOC ---
Infectious Disease Note Vital Sign Vital Signs Vital Signs Date Time Temp Pulse Resp B/P (MAP) Pulse Ox O2 Delivery O2 Flow Rate FiO2 08/22/18 13:00 110 16 121/63 (82) 97 Room Air 08/22/18 12:00 101.0 101.0 Labs Lab Laboratory Tests Test 08/22/18 00:55 08/22/18 01:12 08/22/18 02:19 08/22/18 04:49 White Blood Count 16.6 x10^3/uL (4.0-11.0) 15.5 x10^3/uL (4.0-11.0) Red Blood Count 3.57 x10^6/uL (3.50-5.40) 2.86 x10^6/uL (3.50-5.40) Hemoglobin 12.1 g/dL (12.0-15.5) 9.7 g/dL (12.0-15.5) Hematocrit 34.8 % (36.0-47.0) 28.2 % (36.0-47.0) Mean Corpuscular Volume 98 fL (79-100) 98 fL (79-100) Mean Corpuscular Hemoglobin 34 pg (25-35) 34 pg (25-35) Mean Corpuscular Hemoglobin Concent 35 g/dL (31-37) 35 g/dL (31-37) Red Cell Distribution Width 14.0 % (11.5-14.5) 14.0 % (11.5-14.5) Platelet Count 204 x10^3/uL (140-400) 178 x10^3/uL (140-400) Neutrophils (%) (Auto) 90 % (31-73) 91 % (31-73) Lymphocytes (%) (Auto) 3 % (24-48) 2 % (24-48) Monocytes (%) (Auto) 7 % (0-9) 7 % (0-9) Eosinophils (%) (Auto) 0 % (0-3) 0 % (0-3) Basophils (%) (Auto) 0 % (0-3) 0 % (0-3) Neutrophils # (Auto) 15.0 x10^3uL (1.8-7.7) 14.1 x10^3uL (1.8-7.7) Lymphocytes # (Auto) 0.4 x10^3/uL (1.0-4.8) 0.3 x10^3/uL (1.0-4.8) Monocytes # (Auto) 1.1 x10^3/uL (0.0-1.1) 1.1 x10^3/uL (0.0-1.1) Eosinophils # (Auto) 0.0 x10^3/uL (0.0-0.7) 0.0 x10^3/uL (0.0-0.7) Basophils # (Auto) 0.1 x10^3/uL (0.0-0.2) 0.0 x10^3/uL (0.0-0.2) Segmented Neutrophils % 74 % (35-66) Band Neutrophils % 19 % (0-9) Lymphocytes % 2 % (24-48) Monocytes % 3 % (0-10) Eosinophils % 1 % (0-5) Metamyelocytes % 1 % (0-0) Platelet Estimate Adequate (ADEQUATE) Sodium Level 137 mmol/L (136-145) Potassium Level 4.0 mmol/L (3.5-5.1) Chloride Level 100 mmol/L (98-107) Carbon Dioxide Level 24 mmol/L (21-32) Anion Gap 13 (6-14) Blood Urea Nitrogen 35 mg/dL (7-20) Creatinine 2.9 mg/dL (0.6-1.0) Estimated GFR (Cockcroft-Gault) 16.7 BUN/Creatinine Ratio 12 (6-20) Glucose Level 137 mg/dL (70-99) Lactic Acid Level 2.2 mmol/L (0.4-2.0) 0.9 mmol/L (0.4-2.0) Calcium Level 9.9 mg/dL (8.5-10.1) Total Bilirubin 0.5 mg/dL (0.2-1.0) Aspartate Amino Transf (AST/SGOT) 24 U/L (15-37) Alanine Aminotransferase (ALT/SGPT) 17 U/L (14-59) Alkaline Phosphatase 64 U/L (46-116) Total Protein 6.9 g/dL (6.4-8.2) Albumin 2.9 g/dL (3.4-5.0) Albumin/Globulin Ratio 0.7 (1.0-1.7) Influenza Type A Antigen Negative (NEGATIVE) Influenza Type B Antigen Negative (NEGATIVE) Group A Streptococcus Rapid Negative (NEGATIVE) Urine Collection Type Unknown Urine Color Yellow Urine Clarity Clear Urine pH 6.0 Urine Specific [place] 1.015 Urine Protein 100 mg/dL (NEG-TRACE) Urine Glucose (UA) Negative mg/dL (NEG) Urine Ketones (Stick) Negative mg/dL (NEG) Urine Blood Small (NEG) Urine Nitrite Negative (NEG) Urine Bilirubin Negative (NEG) Urine Urobilinogen Dipstick 0.2 mg/dL (0.2 mg/dL) Urine Leukocyte Esterase Small (NEG) Urine RBC Occ /HPF (0-2) Urine WBC 5-10 /HPF (0-4) Urine Squamous Epithelial Cells Few /LPF Urine Bacteria Many /HPF (0-FEW) Urine Mucus Slight /LPF Objective Assessment Fever , ? from HD cath or urine/nephrostomy ESRD on HD Cervical cancer Alex hydronephrosis with alex nephrostomy tubes, changed 2 wks ago Hypotension requiring vasopressor support Plan Plan of Care panculture dorcas and zoweron d/w sig other supportive care BETY ELLSWORTH MD Aug 22, 2018 13:35
[2018-08-22] MEDS: MIRTAZAPINE 15 MG TABLET PO SCH (20:36)
[2018-08-22] MEDS: APIXABAN 5 MG TABLET. PO SCH (20:36)
--- NOTE | 2018-08-22 22:34 | CONS ---
DATE OF CONSULTATION: REQUESTING PHYSICIAN: Hospitalist. REASON FOR CONSULTATION: Renal failure. HISTORY OF PRESENT ILLNESS: A 58-year-old female with history of cervical carcinoma. She has had an obstructive uropathy related to the same. She has bilateral nephrostomy tubes in place. She also has end-stage renal disease, currently undergoing hemodialysis on a Thursday, Thursday and Thursday schedule. The patient is currently admitted with fever with suspected urinary tract infection and possible vascular access associated infection. The patient is currently alert, conversant. PAST MEDICAL HISTORY: 1. Cervical carcinoma. 2. End-stage renal disease, hemodialysis dependent, Thursday, Thursday and Thursday. 3. Bilateral nephrostomy tubes due to obstructive uropathy. 4. Urinary tract infection. 5. . 6. Cystoscopy. ALLERGIES: CODEINE. MEDICATIONS: Reviewed per med list. FAMILY HISTORY: Noncontributory. SOCIAL HISTORY: She resides with assistance. REVIEW OF SYSTEMS: No headache, sinus problem, nasal drainage, epistaxis or change in vision or hearing. No difficulty swallowing. No fever, chills, cough or sputum production. No hemoptysis. No chest pain, shortness of breath, PND, orthopnea or dyspnea on exertion. No abdominal pain. No upper or lower gastrointestinal blood loss. No nausea, vomiting or diarrhea. No seizures. She has cervical cancer. PHYSICAL EXAMINATION: GENERAL: The patient is awake, conversant and appropriate. HEENT: Clear. NECK: No increased JVD. No thyromegaly, mass or adenopathy. LUNGS: Clear. CARDIAC: Without S3 or rub. ABDOMEN: Soft, nontender. No bruits. EXTREMITIES: No edema. NEUROLOGIC: Nonfocal localizing. PSYCHIATRIC: Good attention to detail, appropriate affect. LABORATORY DATA: White count 15.5, hemoglobin 9.7 and hematocrit 28%. Urinalysis, bacteria, small leukocytes. Potassium 4.2, CO2 of 24, creatinine is 2.9 and GFR is 16.7. IMPRESSION: 1. End-stage renal disease secondary to obstructive uropathy. 2. Cervical cancer. 3. Sepsis - urinary tract infection versus vascular access-associated infection. PLAN: 1. Continue antibiotics pending culture results. 2. Infectious Disease consultation has been requested. 3. Ongoing dialysis Thursday, Thursday and Thursday. We will follow. TANA BENJAMIN MD DR: ALEXANDER/camille JOB#: [id number] / [id number]
--- NOTE | 2018-08-22 22:38 | CONS ---
DATE OF CONSULTATION: 08/22/2018 REQUESTING PHYSICIAN: Dr. Membreno. REASON FOR CONSULTATION: Sepsis. HISTORY OF PRESENT ILLNESS: This is a 58-year-old female with history of cervical cancer, who also has had bilateral hydronephrosis and bilateral nephrostomy tube placement done. The patient came in with sudden onset of fever last night. Denied any nausea or vomiting. She did have 1 loose stool yesterday. Denied any sore throat, chest pain, shortness of breath, abdominal pain or urinary symptoms. The patient has had 2 weeks ago the nephrostomy tube replaced. The patient does have a dialysis catheter that they have noticed some redness at the dialysis catheter. 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 The patient has bilateral nephrostomy tube placement done, hemodialysis catheter with getting dialysis 3 times a week, has had radiation therapy and chemotherapy. The patient also has had in the past. SOCIAL HISTORY: Negative for smoking, alcohol, illicit drug use. ALLERGIES: No known drug allergies. CURRENT MEDICATIONS: Reviewed. The patient is on vancomycin and Zosyn. REVIEW OF SYSTEMS: As per HPI. All other systems reviewed are negative. PHYSICAL EXAMINATION: GENERAL: Alert and oriented female, not in distress. VITAL SIGNS: Stable. T-max is 101.0, pulse 110, respirations 16, blood pressure 121/63. The patient required vasopressor support. Now, she has been actually off vasopressors. HEENT: NAD. NECK: Supple, no JVP, no lymphadenopathy. LUNGS: Clear. HEART: S1, S2 regular. ABDOMEN: Benign. EXTREMITIES: No edema, cyanosis. SKIN: Unremarkable. NEUROLOGIC: The patient is neurologically intact. LINES: The patient does have a tunneled hemodialysis catheter in the right upper chest, which is actually showing some erythema. Nephrostomy tubes are unremarkable, although the left side is not draining much. Right side is the main one that drains. LABORATORY DATA: White count is 15.5, hemoglobin 9.7, platelets are normal. BUN and creatinine is 35 and 2.9. Lactic acid was 2.2. Urinalysis showed 5-10 wbc's. Cultures are pending. Chest x-ray was unremarkable. IMPRESSION: 1. Fever. In this patient fever could be from the hemodialysis catheter infection or it could be nephrostomy tube, urinary tract infection through the nephrostomy. 2. Leukocytosis. 3. Hypotension. 4. End-stage renal disease, on hemodialysis. 5. Metastatic cervical cancer. RECOMMENDATION: Agree with vancomycin and Zosyn. The patient needs the supportive care. We will also follow the cultures and adjust. Discussion with the patient's significant other done at the bedside. Thank you very much, Dr. Membreno, for giving me the opportunity to participate in this patient's care. BETY ELLSWORTH MD DR: ODESSA/camille JOB#: [id number] / [id number]
[2018-08-23] VITALS (24 sets, daily range): BP systolic 85–135; BP diastolic 51–78
[2018-08-23] MEDS ORDERED: VANCOMYCIN RANDOM LEVEL. MC ONE (05:00)
[2018-08-23] MEDS: LORazepam 1 MG TABLET PO SCH ×3 (06:11→21:26)
[2018-08-23] MEDS: PIPERACILLIN/TAZOBACTAM 2.25 GM in IV NORMAL SALINE 50ML 50 ML IV SCH ×3 (06:12→21:26)
[2018-08-23 06:39] LABS: BASO % 0 % (0-3); EOS # 0.1 x10^3/uL (0.0-0.7); EOS % 2 % (0-3); HEMATOCRIT 28.4 % (36.0-47.0); HEMOGLOBIN 9.8 g/dL (12.0-15.5); LYMPH # 0.2 x10^3/uL (1.0-4.8); LYMPH % 3 % (24-48); MEAN CORPUSCULAR HEMOGLOBIN 34 pg (25-35); MEAN CORPUSCULAR HGB CONC 35 g/dL (31-37); MEAN CORPUSCULAR VOLUME 99 fL (79-100); MONO # 0.3 x10^3/uL (0.0-1.1); MONO % 5 % (0-9); NEUT # 5.8 x10^3uL (1.8-7.7); NEUT % 90 % (31-73); PLATELET COUNT 138 x10^3/uL (140-400); RED BLOOD COUNT 2.86 x10^6/uL (3.50-5.40); RED CELL DISTRIBUTION WIDTH 14.1 % (11.5-14.5); WHITE BLOOD COUNT 6.4 x10^3/uL (4.0-11.0)
[2018-08-23 06:50] LABS: GFR 16.1
[2018-08-23] MEDS: IV NORMAL SALINE 1000ML BAG 1,000 ML IV SCH ×3 (06:59→21:26)
--- NOTE | 2018-08-23 08:19 | PDOC ---
PROGRESS NOTES History of Present Illness History of Present Illness 58-year-old female w/ PMHx metastatic cervical cancer and replacement of bilateral nephrostomy tubes by IR, right draining more urine than the left. IR is Dr. morley. Last seen maybe a week or a month ago and advised to leave the left nephrostomy tube in as it is draining some though not great. She is also chemotherapy patient, has a right indwelling tunneled dialysis catheter. Occasionally being changed and last changed maybe a month ago. There is some redness there but patient claims that it's much better since started on IV antibiotics since admission. Chest x-ray is negative for any acute process but urinalysis shows 5-10 WBC with 0 or moderate bacteria. Urine cultures pending. Off levophed for low blood pressure. Last fever 101F yesterday at noon. Known patient of Dr. Boateng. No ambulation issues, no appetite this breakfast but usually on good days she eats decently as per family. Lives alone. Anxious to leave. Discussed plan with daughter bedside. Assessment/Plan Septic shock on low-dose pressor - urine vs HD catheter. ID following. sarina Baig for now, cultures NGTD Bilateral indwelling nephrostomy tubes secondary to mechanical obstruction from advanced cervical carcinoma-right draining more than the left-as per IR keep the left as it is draining some urine Cervical cancer, on chemotherapy-has one more chemotherapy therapy plan as outpatient-so far he could not see the spots as per last imaging per patient relay ESRD, known patient of Dr. 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 - resume Can transfer out of ICU now off pressors after her dialysis session today F/u Urine culture Labs again tomorrow Regular diet Vitals Vitals Vital Signs Date Time Temp Pulse Resp B/P (MAP) Pulse Ox O2 Delivery O2 Flow Rate FiO2 08/23/18 07:00 95 14 109/73 (85) 97 Room Air 08/23/18 04:00 99.1 99.1 Physical Exam General: Alert, Oriented X3, Cooperative, No acute distress Lungs: Clear, Other Abdomen: Normal bowel sounds, Soft, No tenderness, No hepatosplenomegaly, No masses, Other (bilateral nephrostomy tubes with right draining more urine than the left) Extremities: No clubbing, No cyanosis, No edema, Normal pulses, No tenderness/ swelling Labs LABS Laboratory Tests Test 08/23/18 05:15 White Blood Count 6.4 x10^3/uL (4.0-11.0) Red Blood Count 2.86 x10^6/uL (3.50-5.40) Hemoglobin 9.8 g/dL (12.0-15.5) Hematocrit 28.4 % (36.0-47.0) Mean Corpuscular Volume 99 fL (79-100) Mean Corpuscular Hemoglobin 34 pg (25-35) Mean Corpuscular Hemoglobin Concent 35 g/dL (31-37) Red Cell Distribution Width 14.1 % (11.5-14.5) Platelet Count 138 x10^3/uL (140-400) Neutrophils (%) (Auto) 90 % (31-73) Lymphocytes (%) (Auto) 3 % (24-48) Monocytes (%) (Auto) 5 % (0-9) Eosinophils (%) (Auto) 2 % (0-3) Basophils (%) (Auto) 0 % (0-3) Neutrophils # (Auto) 5.8 x10^3uL (1.8-7.7) Lymphocytes # (Auto) 0.2 x10^3/uL (1.0-4.8) Monocytes # (Auto) 0.3 x10^3/uL (0.0-1.1) Eosinophils # (Auto) 0.1 x10^3/uL (0.0-0.7) Basophils # (Auto) 0.0 x10^3/uL (0.0-0.2) Sodium Level 142 mmol/L (136-145) Potassium Level 4.0 mmol/L (3.5-5.1) Chloride Level 108 mmol/L (98-107) Carbon Dioxide Level 21 mmol/L (21-32) Anion Gap 13 (6-14) Blood Urea Nitrogen 35 mg/dL (7-20) Creatinine 3.0 mg/dL (0.6-1.0) Estimated GFR (Cockcroft-Gault) 16.1 Glucose Level 110 mg/dL (70-99) Calcium Level 9.0 mg/dL (8.5-10.1) Random Vancomycin Level 13.1 mcg/mL Review of Systems Review of Systems Card - no cp or palpitations Resp - No SOB, slight cough GI - intermittent diarrhea and constipation, no foul smell MSK - some weakness from being in bed, no focal pain or deficits Comment Review of Relevant I have reviewed the following items liz (where applicable) has been applied. Labs Laboratory Tests Test 08/22/18 00:55 08/22/18 01:12 08/22/18 02:19 08/22/18 04:49 White Blood Count 16.6 x10^3/uL (4.0-11.0) 15.5 x10^3/uL (4.0-11.0) Red Blood Count 3.57 x10^6/uL (3.50-5.40) 2.86 x10^6/uL (3.50-5.40) Hemoglobin 12.1 g/dL (12.0-15.5) 9.7 g/dL (12.0-15.5) Hematocrit 34.8 % (36.0-47.0) 28.2 % (36.0-47.0) Mean Corpuscular Volume 98 fL (79-100) 98 fL (79-100) Mean Corpuscular Hemoglobin 34 pg (25-35) 34 pg (25-35) Mean Corpuscular Hemoglobin Concent 35 g/dL (31-37) 35 g/dL (31-37) Red Cell Distribution Width 14.0 % (11.5-14.5) 14.0 % (11.5-14.5) Platelet Count 204 x10^3/uL (140-400) 178 x10^3/uL (140-400) Neutrophils (%) (Auto) 90 % (31-73) 91 % (31-73) Lymphocytes (%) (Auto) 3 % (24-48) 2 % (24-48) Monocytes (%) (Auto) 7 % (0-9) 7 % (0-9) Eosinophils (%) (Auto) 0 % (0-3) 0 % (0-3) Basophils (%) (Auto) 0 % (0-3) 0 % (0-3) Neutrophils # (Auto) 15.0 x10^3uL (1.8-7.7) 14.1 x10^3uL (1.8-7.7) Lymphocytes # (Auto) 0.4 x10^3/uL (1.0-4.8) 0.3 x10^3/uL (1.0-4.8) Monocytes # (Auto) 1.1 x10^3/uL (0.0-1.1) 1.1 x10^3/uL (0.0-1.1) Eosinophils # (Auto) 0.0 x10^3/uL (0.0-0.7) 0.0 x10^3/uL (0.0-0.7) Basophils # (Auto) 0.1 x10^3/uL (0.0-0.2) 0.0 x10^3/uL (0.0-0.2) Segmented Neutrophils % 74 % (35-66) Band Neutrophils % 19 % (0-9) Lymphocytes % 2 % (24-48) Monocytes % 3 % (0-10) Eosinophils % 1 % (0-5) Metamyelocytes % 1 % (0-0) Platelet Estimate Adequate (ADEQUATE) Sodium Level 137 mmol/L (136-145) Potassium Level 4.0 mmol/L (3.5-5.1) Chloride Level 100 mmol/L (98-107) Carbon Dioxide Level 24 mmol/L (21-32) Anion Gap 13 (6-14) Blood Urea Nitrogen 35 mg/dL (7-20) Creatinine 2.9 mg/dL (0.6-1.0) Estimated GFR (Cockcroft-Gault) 16.7 BUN/Creatinine Ratio 12 (6-20) Glucose Level 137 mg/dL (70-99) Lactic Acid Level 2.2 mmol/L (0.4-2.0) 0.9 mmol/L (0.4-2.0) Calcium Level 9.9 mg/dL (8.5-10.1) Total Bilirubin 0.5 mg/dL (0.2-1.0) Aspartate Amino Transf (AST/SGOT) 24 U/L (15-37) Alanine Aminotransferase (ALT/SGPT) 17 U/L (14-59) Alkaline Phosphatase 64 U/L (46-116) Total Protein 6.9 g/dL (6.4-8.2) Albumin 2.9 g/dL (3.4-5.0) Albumin/Globulin Ratio 0.7 (1.0-1.7) Influenza Type A Antigen Negative (NEGATIVE) Influenza Type B Antigen Negative (NEGATIVE) Group A Streptococcus Rapid Negative (NEGATIVE) Urine Collection Type Unknown Urine Color Yellow Urine Clarity Clear Urine pH 6.0 Urine Specific [place] 1.015 Urine Protein 100 mg/dL (NEG-TRACE) Urine Glucose (UA) Negative mg/dL (NEG) Urine Ketones (Stick) Negative mg/dL (NEG) Urine Blood Small (NEG) Urine Nitrite Negative (NEG) Urine Bilirubin Negative (NEG) Urine Urobilinogen Dipstick 0.2 mg/dL (0.2 mg/dL) Urine Leukocyte Esterase Small (NEG) Urine RBC Occ /HPF (0-2) Urine WBC 5-10 /HPF (0-4) Urine Squamous Epithelial Cells Few /LPF Urine Bacteria Many /HPF (0-FEW) Urine Mucus Slight /LPF Test 08/22/18 06:01 08/23/18 05:15 Nasal Screen MRSA (PCR) Negative (Negative) White Blood Count 6.4 x10^3/uL (4.0-11.0) Red Blood Count 2.86 x10^6/uL (3.50-5.40) Hemoglobin 9.8 g/dL (12.0-15.5) Hematocrit 28.4 % (36.0-47.0) Mean Corpuscular Volume 99 fL (79-100) Mean Corpuscular Hemoglobin 34 pg (25-35) Mean Corpuscular Hemoglobin Concent 35 g/dL (31-37) Red Cell Distribution Width 14.1 % (11.5-14.5) Platelet Count 138 x10^3/uL (140-400) Neutrophils (%) (Auto) 90 % (31-73) Lymphocytes (%) (Auto) 3 % (24-48) Monocytes (%) (Auto) 5 % (0-9) Eosinophils (%) (Auto) 2 % (0-3) Basophils (%) (Auto) 0 % (0-3) Neutrophils # (Auto) 5.8 x10^3uL (1.8-7.7) Lymphocytes # (Auto) 0.2 x10^3/uL (1.0-4.8) Monocytes # (Auto) 0.3 x10^3/uL (0.0-1.1) Eosinophils # (Auto) 0.1 x10^3/uL (0.0-0.7) Basophils # (Auto) 0.0 x10^3/uL (0.0-0.2) Sodium Level 142 mmol/L (136-145) Potassium Level 4.0 mmol/L (3.5-5.1) Chloride Level 108 mmol/L (98-107) Carbon Dioxide Level 21 mmol/L (21-32) Anion Gap 13 (6-14) Blood Urea Nitrogen 35 mg/dL (7-20) Creatinine 3.0 mg/dL (0.6-1.0) Estimated GFR (Cockcroft-Gault) 16.1 Glucose Level 110 mg/dL (70-99) Calcium Level 9.0 mg/dL (8.5-10.1) Random Vancomycin Level 13.1 mcg/mL Laboratory Tests Test 08/23/18 05:15 White Blood Count 6.4 x10^3/uL (4.0-11.0) Red Blood Count 2.86 x10^6/uL (3.50-5.40) Hemoglobin 9.8 g/dL (12.0-15.5) Hematocrit 28.4 % (36.0-47.0) Mean Corpuscular Volume 99 fL (79-100) Mean Corpuscular Hemoglobin 34 pg (25-35) Mean Corpuscular Hemoglobin Concent 35 g/dL (31-37) Red Cell Distribution Width 14.1 % (11.5-14.5) Platelet Count 138 x10^3/uL (140-400) Neutrophils (%) (Auto) 90 % (31-73) Lymphocytes (%) (Auto) 3 % (24-48) Monocytes (%) (Auto) 5 % (0-9) Eosinophils (%) (Auto) 2 % (0-3) Basophils (%) (Auto) 0 % (0-3) Neutrophils # (Auto) 5.8 x10^3uL (1.8-7.7) Lymphocytes # (Auto) 0.2 x10^3/uL (1.0-4.8) Monocytes # (Auto) 0.3 x10^3/uL (0.0-1.1) Eosinophils # (Auto) 0.1 x10^3/uL (0.0-0.7) Basophils # (Auto) 0.0 x10^3/uL (0.0-0.2) Sodium Level 142 mmol/L (136-145) Potassium Level 4.0 mmol/L (3.5-5.1) Chloride Level 108 mmol/L (98-107) Carbon Dioxide Level 21 mmol/L (21-32) Anion Gap 13 (6-14) Blood Urea Nitrogen 35 mg/dL (7-20) Creatinine 3.0 mg/dL (0.6-1.0) Estimated GFR (Cockcroft-Gault) 16.1 Glucose Level 110 mg/dL (70-99) Calcium Level 9.0 mg/dL (8.5-10.1) Random Vancomycin Level 13.1 mcg/mL Microbiology 08/22/18 Blood Culture - Preliminary, Resulted NO GROWTH AFTER 1 DAY Medications Current Medications Piperacillin Sod/ Tazobactam Sod 3.375 gm/Sodium Chloride 50 ml @ 100 mls/hr 1X ONCE IV ; Start 08/22/18 at 02:15; Stop 08/22/18 at 02:44; Status UNV Sodium Chloride 500 ml @ 500 mls/hr 1X ONCE IV Last administered on at 02:27; Start 08/22/18 at 02:30; Stop 08/22/18 at 03:29; Status DC Vancomycin HCl 1.25 gm/Sodium Chloride 250 ml @ 166.667 mls/hr 1X ONCE IV Last administered on 08/22/18at 03:00; Start 08/22/18 at 03:00; Stop 08/22/18 at 04:29; Status DC Piperacillin Sod/ Tazobactam Sod 2.25 gm/Sodium Chloride 50 ml @ 100 mls/hr 1X ONCE IV Last administered on 08/22/18at 02:27; Start 08/22/18 at 02:30; Stop 08/22/18 at 02:59; Status DC Acetaminophen (Tylenol) 1,000 mg 1X ONCE PO Last administered on 08/22/18at 03 :05; Start 08/22/18 at 03:15; Stop 08/22/18 at 03:16; Status DC Sodium Chloride 500 ml @ 500 mls/hr 1X ONCE IV Last administered on at 03:30; Start 08/22/18 at 03:30; Stop 08/22/18 at 04:29; Status DC Ondansetron HCl (Zofran) 4 mg PRN Q8HRS PRN IV NAUSEA/VOMITING 1ST CHOICE; Start 08/22/18 at 04:30; Stop 08/22/18 at 08:59; Status DC Morphine Sulfate (Morphine Sulfate) 2 mg PRN Q2HR PRN IV SEVERE PAIN Last administered on 08/22/18at 19:29; Start 08/22/18 at 04:30; Stop 08/23/18 at 04 :29; Status DC Piperacillin Sod/ Tazobactam Sod 3.375 gm/Sodium Chloride 50 ml @ 100 mls/hr Q6HRS IV ; Start 08/22/18 at 06:00; Status UNV Sodium Chloride 500 ml @ 500 mls/hr 1X ONCE IV Last administered on at 06:17; Start 08/22/18 at 05:00; Stop 08/22/18 at 05:59; Status DC Piperacillin Sod/ Tazobactam Sod 2.25 gm/Sodium Chloride 50 ml @ 100 mls/hr Q8HRS IV Last administered on 08/23/18at 06:12; Start 08/22/18 at 14:00 Vancomycin HCl (Vanco Per Pharmacy) 1 each PRN DAILY PRN MC SEE COMMENTS Last administered on 08/22/18at 09:11; Start 08/22/18 at 05:45 Norepinephrine Bitartrate 250 ml @ 1.875 mls/ hr CONT PRN IV SEE I/O RECORD Last administered on 08/22/18at 06:19; Start 08/22/18 at 06:15 Sodium Chloride 500 ml @ 500 mls/hr 1X ONCE IV Last administered on at 06:18; Start 08/22/18 at 06:30; Stop 08/22/18 at 07:29; Status DC Norepinephrine Bitartrate 250 ml @ As Directed STK-MED ONCE IV ; Start at 06:11; Stop 08/22/18 at 06:12; Status DC Vancomycin HCl (Vancomycin Random Level) 1 each 1X ONCE MC Last administered on 08/23/18at 05:00; Start 08/23/18 at 05:00; Stop 08/23/18 at 05:01; Status DC Sodium Chloride 1,000 ml @ 125 mls/hr Q8H IV Last administered on 08/23/18at 06:59; Start 08/22/18 at 06:30 Ondansetron HCl (Zofran) 4 mg PRN Q6HRS PRN IV NAUSEA/VOMITING 1ST CHOICE; Start 08/22/18 at 09:00 Acetaminophen/ Codeine Phosphate (Tylenol #3) 1 tab PRN Q6HRS PRN PO MODERATE PAIN; Start 08/22/18 at 09:00 Acetaminophen (Tylenol) 500 mg PRN Q6HRS PRN PO MILD PAIN / TEMP Last administered on 08/22/18at 18:03; Start 08/22/18 at 09:00 Apixaban (Eliquis) 2.5 mg BID PO ; Start 08/22/18 at 09:30; Stop 08/22/18 at 09:30; Status DC Lorazepam (Ativan) 1 mg Q8HRS PO Last administered on 08/23/18at 06:11; Start 08/22/18 at 09:30 Oxycodone/ Acetaminophen (Percocet 5/325) 1 tab PRN Q6HRS PRN PO SEVERE PAIN; Start 08/22/18 at 09:00 Mirtazapine (Remeron) 15 mg QHS PO Last administered on 08/22/18at 20:36; Start 08/22/18 at 21:00 Ondansetron HCl (Zofran Odt) 8 mg PRN Q12HRS PRN PO NAUSEA/VOMITING; Start at 09:15 Apixaban (Eliquis) 5 mg BID PO Last administered on 08/22/18at 20:36; Start at 10:00 Lactobacillus Rhamnosus (Culturelle) 1 cap BID PO Last administered on at 20:36; Start 08/22/18 at 12:00 Active Scripts Active Reported Eliquis (Apixaban) 5 Mg Tablet 5 Mg PO BID Remeron (Mirtazapine) 15 Mg Tablet 1 Tab PO QHS Lorazepam 1 Mg Tablet 1 Mg PO Q8HRS Zofran (Ondansetron Hcl) 8 Mg Tablet 8 Mg PO BID PRN Percocet 5-325 Mg Tablet (Oxycodone/Acetaminophen) 1 Each Tablet 1 Tab PO PRN Q6HRS PRN Vitals/I & O Vital Sign - Last 24 Hours 08/22/18 08/22/18 08/22/18 08/22/18 09:00 10:00 11:00 12:00 Temp 99.5 99.1 99.1 99.5 99.1 99.1 Pulse 90 100 90 Resp 16 16 16 B/P (MAP) 112/73 (86) 140/81 (100) 115/72 (86) Pulse Ox 100 98 97 O2 Delivery Room Air Room Air Room Air Room Air 08/22/18 08/22/18 08/22/18 08/22/18 12:00 13:00 14:00 15:00 Temp 101.0 99.5 101.0 99.5 Pulse 90 110 90 95 Resp 16 16 16 16 B/P (MAP) 148/61 (90) 121/63 (82) 84/50 (61) 116/63 (80) Pulse Ox 97 97 97 97 O2 Delivery Room Air Room Air Room Air Room Air 08/22/18 08/22/18 08/22/18 08/22/18 16:00 16:00 17:00 18:00 Temp 97.9 97.9 Pulse 86 120 120 Resp 16 16 16 B/P (MAP) 90/59 (69) 92/64 (73) 102/60 (74) Pulse Ox 96 97 97 O2 Delivery Room Air Room Air Room Air Room Air 08/22/18 08/22/18 08/22/18 08/22/18 19:00 19:29 19:59 20:00 Temp 99.0 99.0 Pulse 120 113 Resp 16 12 16 B/P (MAP) 126/63 (84) 106/54 (71) Pulse Ox 97 97 97 96 O2 Delivery Room Air Room Air Room Air Room Air 08/22/18 08/22/18 08/22/18 08/22/18 20:00 21:00 21:15 21:30 Pulse 113 110 92 Resp 16 16 14 B/P (MAP) 58/35 (43) 72/40 (51) 100/57 (71) Pulse Ox 97 97 97 O2 Delivery Room Air Room Air Room Air Room Air 08/22/18 08/22/18 08/22/18 08/23/18 22:00 22:15 23:00 00:00 Pulse 88 96 84 Resp 16 16 14 B/P (MAP) 93/58 (70) 96/56 (69) 81/44 (56) Pulse Ox 97 97 97 O2 Delivery Room Air Room Air Room Air Room Air 08/23/18 08/23/18 08/23/18 08/23/18 00:01 01:00 02:00 03:00 Temp 99.9 99.9 Pulse 84 94 88 86 Resp 16 14 14 12 B/P (MAP) 113/66 (82) 88/55 (66) 104/63 (77) 90/55 (67) Pulse Ox 96 97 97 97 O2 Delivery Room Air Room Air Room Air Room Air 08/23/18 08/23/18 08/23/18 08/23/18 04:00 04:00 05:00 06:00 Temp 99.1 99.1 Pulse 84 96 105 Resp 16 12 12 B/P (MAP) 117/68 (84) 111/63 (79) 116/73 (87) Pulse Ox 96 97 97 O2 Delivery Room Air Room Air Room Air Room Air 08/23/18 07:00 Pulse 95 Resp 14 B/P (MAP) 109/73 (85) Pulse Ox 97 O2 Delivery Room Air Intake and Output 08/22/18 08/22/18 08/23/18 15:00 23:00 07:00 Intake Total 677 ml 1690 ml 1723 ml Output Total 775 ml 250 ml 850 ml Balance -98 ml 1440 ml 873 ml OLGA PEREIRA MD Aug 23, 2018 08:19
--- NOTE | 2018-08-23 08:19 | PDOC ---
Infectious Disease Note Subjective Subjective Feels better already. Got some rest No F/C/S/SOA/Rash/N/V/D ROS ROS o/w neg Vital Sign Vital Signs Vital Signs Date Time Temp Pulse Resp B/P (MAP) Pulse Ox O2 Delivery O2 Flow Rate FiO2 08/23/18 07:00 95 14 109/73 (85) 97 Room Air 08/23/18 04:00 99.1 99.1 Physical Exam PHYSICAL EXAM GENERAL: Alert and oriented female, not in distress. HEENT: nml cont. OC/Op -clear NECK: Supple, no JVP, no lymphadenopathy. LUNGS: Clear. HEART: S1, S2 regular. ABDOMEN: Benign. + BS EXTREMITIES: No edema, cyanosis. SKIN: Unremarkable. NEUROLOGIC: The patient is neurologically intact. LINES: The patient does have a tunneled hemodialysis catheter in the right upper chest, NT this am. Nephrostomy tubes are unremarkable, although the left side is not draining much. Right side is the main one that drains. Labs Lab Laboratory Tests Test 08/23/18 05:15 White Blood Count 6.4 x10^3/uL (4.0-11.0) Red Blood Count 2.86 x10^6/uL (3.50-5.40) Hemoglobin 9.8 g/dL (12.0-15.5) Hematocrit 28.4 % (36.0-47.0) Mean Corpuscular Volume 99 fL (79-100) Mean Corpuscular Hemoglobin 34 pg (25-35) Mean Corpuscular Hemoglobin Concent 35 g/dL (31-37) Red Cell Distribution Width 14.1 % (11.5-14.5) Platelet Count 138 x10^3/uL (140-400) Neutrophils (%) (Auto) 90 % (31-73) Lymphocytes (%) (Auto) 3 % (24-48) Monocytes (%) (Auto) 5 % (0-9) Eosinophils (%) (Auto) 2 % (0-3) Basophils (%) (Auto) 0 % (0-3) Neutrophils # (Auto) 5.8 x10^3uL (1.8-7.7) Lymphocytes # (Auto) 0.2 x10^3/uL (1.0-4.8) Monocytes # (Auto) 0.3 x10^3/uL (0.0-1.1) Eosinophils # (Auto) 0.1 x10^3/uL (0.0-0.7) Basophils # (Auto) 0.0 x10^3/uL (0.0-0.2) Sodium Level 142 mmol/L (136-145) Potassium Level 4.0 mmol/L (3.5-5.1) Chloride Level 108 mmol/L (98-107) Carbon Dioxide Level 21 mmol/L (21-32) Anion Gap 13 (6-14) Blood Urea Nitrogen 35 mg/dL (7-20) Creatinine 3.0 mg/dL (0.6-1.0) Estimated GFR (Cockcroft-Gault) 16.1 Glucose Level 110 mg/dL (70-99) Calcium Level 9.0 mg/dL (8.5-10.1) Random Vancomycin Level 13.1 mcg/mL Micro Microbiology 08/22/18 Blood Culture - Preliminary, Resulted NO GROWTH AFTER 1 DAY Objective Assessment 1. Fever. - improved cults pending. UA ?. 2. Leukocytosis - improved 3. Hypotension -off pressors. 4. End-stage renal disease, on hemodialysis. 5. Bilateral nephrostomy tubes 6. Metastatic cervical cancer. Plan Plan of Care Clinically improved F/u panculture/labs Cont vanc and zosyn d/w family supportive care D/w nursing PREM CARLOS MD Aug 23, 2018 08:19
[2018-08-23] MEDS ORDERED: ANTI-COAG MONITOR BY PHARMACY. MC PRN (08:45)
[2018-08-23] MEDS: LACTOBACILLUS RHAMNOSUS GG 1 CAPSULE. PO SCH ×2 (08:59→21:26)
[2018-08-23] MEDS: APIXABAN 5 MG TABLET. PO SCH ×2 (08:59→21:26)
[2018-08-23] MEDS ORDERED: IV NORMAL SALINE 1000ML BAG 1,000 ML IV PRN ×2 (09:15)
[2018-08-23] MEDS ORDERED: DIALYSIS PATIENT. MC PRN ×2 (10:00)
[2018-08-23] MEDS: NICOTINE 21MG PATCH. TD SCH (10:27)
[2018-08-23] MEDS: VANCOMYCIN PER PHARMACY MC PRN (12:32)
[2018-08-23] MEDS: oxyCODONE/APAP 5/325 1 TAB TABLET PO PRN (13:38)
--- NOTE | 2018-08-23 13:59 | PDOC ---
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 NECK: No increased JVD. LUNGS: Clear. CARDIAC: Without S3 or rub. ABDOMEN: Soft, nontender. No bruits. EXTREMITIES: No edema. NEUROLOGIC: Nonfocal localizing - Bilat nephrostomy + with Good UOP DIAGNOSIS/ASSESSMENT Assessment & Plan End-stage renal disease secondary to obstructive uropathy- Neph- Dr. 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 On Abx as per ID off pressors. 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 Has Bilateral nephrostomy tubes, On HD since Metastatic cervical cancer Discussed with Pt at bedside COMMENT/RELEVANT DATA Meds Current Medications Medications (Trade) Dose Ordered Sig/Jordon Start Time Stop Time Status Last Admin Dose Admin Acetaminophen (Tylenol) 500 mg PRN Q6HRS PRN 08/22/18 09:00 08/22/18 18:03 500 MG Acetaminophen/ Codeine Phosphate (Tylenol #3) 1 tab PRN Q6HRS PRN 08/22/18 09:00 Apixaban (Eliquis) 5 mg BID 08/22/18 10:00 08/23/18 08:59 5 MG Info (Anti-Coagulation Monitoring By Pharmacy) 1 each PRN DAILY PRN 08/23/18 08:45 08/23/18 11:32 1 EACH Info (PHARMACY MONITORING -- do not chart) 1 each PRN DAILY PRN 08/23/18 10:00 UNV Lactobacillus Rhamnosus (Culturelle) 1 cap BID 08/22/18 12:00 08/23/18 08:59 1 CAP Lorazepam (Ativan) 1 mg Q8HRS 08/22/18 09:30 08/23/18 13:38 1 MG Mirtazapine (Remeron) 15 mg QHS 08/22/18 21:00 08/22/18 20:36 15 MG Morphine Sulfate (Morphine Sulfate) 2 mg PRN Q2HR PRN 08/22/18 04:30 08/23/18 04:29 DC 08/22/18 19:29 2 MG Nicotine (Nicoderm Cq 21mg) 1 patch DAILY 08/23/18 11:00 08/23/18 10:27 1 PATCH Norepinephrine Bitartrate 250 ml @ As Directed STK-MED ONCE 08/22/18 06:11 08/22/18 06:12 DC Ondansetron HCl (Zofran Odt) 8 mg PRN Q12HRS PRN 08/22/18 09:15 Ondansetron HCl (Zofran) 4 mg PRN Q6HRS PRN 08/22/18 09:00 Oxycodone/ Acetaminophen (Percocet 5/325) 1 tab PRN Q6HRS PRN 08/22/18 09:00 08/23/18 13:38 1 TAB Piperacillin Sod/ Tazobactam Sod 2.25 gm/Sodium Chloride 50 ml @ 100 mls/hr Q8HRS 08/22/18 14:00 08/23/18 13:38 100 MLS/HR Piperacillin Sod/ Tazobactam Sod 3.375 gm/Sodium Chloride 50 ml @ 100 mls/hr Q6HRS 08/22/18 06:00 UNV Sodium Chloride 1,000 ml @ 400 mls/hr Q2H30M PRN 08/23/18 09:15 08/23/18 21:14 Vancomycin HCl (Vanco Per Pharmacy) 1 each PRN DAILY PRN 08/22/18 05:45 08/23/18 12:32 1 EACH Vancomycin HCl (Vancomycin Random Level) 1 each 1X ONCE 08/23/18 05:00 08/23/18 05:01 DC 08/23/18 05:00 1 EACH Vancomycin HCl 1.25 gm/Sodium Chloride 250 ml @ 166.667 mls/hr 1X ONCE 08/22/18 03:00 08/22/18 04:29 DC 08/22/18 03:00 166.667 MLS/HR Vancomycin HCl 500 mg/Sodium Chloride 100 ml @ 100 mls/hr QMWF 08/23/18 16:00 Lab Laboratory Tests Test 08/23/18 05:15 White Blood Count 6.4 x10^3/uL (4.0-11.0) Red Blood Count 2.86 x10^6/uL (3.50-5.40) Hemoglobin 9.8 g/dL (12.0-15.5) Hematocrit 28.4 % (36.0-47.0) Mean Corpuscular Volume 99 fL (79-100) Mean Corpuscular Hemoglobin 34 pg (25-35) Mean Corpuscular Hemoglobin Concent 35 g/dL (31-37) Red Cell Distribution Width 14.1 % (11.5-14.5) Platelet Count 138 x10^3/uL (140-400) Neutrophils (%) (Auto) 90 % (31-73) Lymphocytes (%) (Auto) 3 % (24-48) Monocytes (%) (Auto) 5 % (0-9) Eosinophils (%) (Auto) 2 % (0-3) Basophils (%) (Auto) 0 % (0-3) Neutrophils # (Auto) 5.8 x10^3uL (1.8-7.7) Lymphocytes # (Auto) 0.2 x10^3/uL (1.0-4.8) Monocytes # (Auto) 0.3 x10^3/uL (0.0-1.1) Eosinophils # (Auto) 0.1 x10^3/uL (0.0-0.7) Basophils # (Auto) 0.0 x10^3/uL (0.0-0.2) Sodium Level 142 mmol/L (136-145) Potassium Level 4.0 mmol/L (3.5-5.1) Chloride Level 108 mmol/L (98-107) Carbon Dioxide Level 21 mmol/L (21-32) Anion Gap 13 (6-14) Blood Urea Nitrogen 35 mg/dL (7-20) Creatinine 3.0 mg/dL (0.6-1.0) Estimated GFR (Cockcroft-Gault) 16.1 Glucose Level 110 mg/dL (70-99) Calcium Level 9.0 mg/dL (8.5-10.1) Random Vancomycin Level 13.1 mcg/mL Results All relevant outside records, renal labs, imaging studies, telemetry/EKG's were reviewed. ALVAREZ MARTINEZ MD Aug 23, 2018 13:59
[2018-08-23] MEDS ORDERED: IV NORMAL SALINE 500ML BAG 500 ML IV ONE (14:30)
[2018-08-23] MEDS: VANCOMYCIN 500 MG in IV NORMAL SALINE 100ML 100 ML IV SCH (16:44)
[2018-08-23] MEDS: MIRTAZAPINE 15 MG TABLET PO SCH (21:26)
[2018-08-24] VITALS (12 sets, daily range): BP systolic 106–146; BP diastolic 57–94
[2018-08-24] MEDS: PIPERACILLIN/TAZOBACTAM 2.25 GM in IV NORMAL SALINE 50ML 50 ML IV SCH ×3 (05:09→22:06)
[2018-08-24] MEDS: LORazepam 1 MG TABLET PO SCH ×3 (06:03→23:19)
[2018-08-24] MEDS: IV NORMAL SALINE 1000ML BAG 1,000 ML IV SCH ×3 (06:04→22:08)
--- NOTE | 2018-08-24 07:57 | PDOC ---
Infectious Disease Note Subjective Subjective Feels better already. Hoping to go home soon No F/C/S/SOA/Rash/N/V/D ROS ROS o/w neg Vital Sign Vital Signs Vital Signs Date Time Temp Pulse Resp B/P (MAP) Pulse Ox O2 Delivery O2 Flow Rate FiO2 08/24/18 06:19 98 111/61 (78) Room Air 08/24/18 05:19 98.9 98 98.9 08/24/18 00:19 16 08/23/18 22:00 95.0 Physical Exam PHYSICAL EXAM GENERAL: Alert and oriented female, not in distress. HEENT: nml cont. OC/Op -clear NECK: Supple, no JVP, no lymphadenopathy. LUNGS: Clear. HEART: S1, S2 regular. ABDOMEN: Benign. + BS EXTREMITIES: No edema, cyanosis. SKIN: Unremarkable. NEUROLOGIC: The patient is neurologically intact. LINES: The patient does have a tunneled hemodialysis catheter in the right upper chest, NT this am. Nephrostomy tubes are unremarkable, although the left side is not draining much. Right side is the main one that drains. Labs Micro Microbiology 08/22/18 Blood Culture - Preliminary, Resulted NO GROWTH AFTER 1 DAY Objective Assessment Fever. - improved Leukocytosis - improved GPC- sepsis POA 08/22 cult pending from Hypotension -off pressors. GNR UTI - POA 08/22 End-stage renal disease, on hemodialysis Bilateral nephrostomy tubes Metastatic cervical cancer. Plan Plan of Care Clinically improved F/u culture/labs Cont vanc and zosyn for now supportive care D/w nursing PREM CARLOS MD Aug 24, 2018 07:57
--- NOTE | 2018-08-24 08:04 | PDOC ---
PROGRESS NOTES Chief Complaint Chief Complaint Sepsis ESRD on HD History of Present Illness History of Present Illness 58-year-old female w/ PMHx metastatic cervical cancer and replacement of bilateral nephrostomy tubes by IR, right draining more urine than the left. IR is Dr. morley. Last seen maybe a week or a month ago and advised to leave the left nephrostomy tube in as it is draining some though not great. She is also chemotherapy patient, has a right indwelling tunneled dialysis catheter. Occasionally being changed and last changed maybe a month ago. There is some redness there but patient claims that it's much better since started on IV antibiotics since admission. Chest x-ray is negative for any acute process but urinalysis shows 5-10 WBC with 0 or moderate bacteria. Urine cultures pending. Off levophed for low blood pressure. Last fever 101F 08/22/18 at noon. No ambulation issues, appetite today this breakfast but usually on good days she eats decently as per family. Lives alone. Anxious to leave. Discussed plan with daughter bedside. Blood cultures x2 positive GPC and urine with 100K CFU, discussed with ID. Assessment/Plan Septic shock on low-dose pressor - urine vs HD catheter. ID following. sarina Baig for now, cultures NGTD Bilateral indwelling nephrostomy tubes secondary to mechanical obstruction from advanced cervical carcinoma-right draining more than the left-as per IR keep the left as it is draining some urine Cervical cancer, on chemotherapy-has one more chemotherapy therapy plan as outpatient-so far he could not see the spots as per last imaging per patient relay ESRD, known patient of Dr. 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 - resume Can transfer out of ICU now off pressors after her dialysis session yesterday F/u Urine culture and blood cultures, her line may need to be replaced Labs again tomorrow Renal diet Vitals Vitals Vital Signs Date Time Temp Pulse Resp B/P (MAP) Pulse Ox O2 Delivery O2 Flow Rate FiO2 08/24/18 06:19 98 111/61 (78) Room Air 08/24/18 05:19 98.9 98 98.9 08/24/18 00:19 16 08/23/18 22:00 95.0 Physical Exam Physical Exam GENERAL: Alert and oriented female, not in distress. HEENT: nml cont. OC/Op -clear NECK: Supple, no JVP, no lymphadenopathy. LUNGS: Clear. HEART: S1, S2 regular. ABDOMEN: Benign. + BS EXTREMITIES: No edema, cyanosis. SKIN: Unremarkable. NEUROLOGIC: The patient is neurologically intact. LINES: The patient does have a tunneled hemodialysis catheter in the right upper chest, NT this am. Nephrostomy tubes are unremarkable, although the left side is not draining much. Right side is the main one that drains. General: Alert, Oriented X3, Cooperative, No acute distress Lungs: Clear, Other Abdomen: Normal bowel sounds, Soft, No tenderness, No hepatosplenomegaly, No masses, Other (bilateral nephrostomy tubes with right draining more urine than the left) Extremities: No clubbing, No cyanosis, No edema, Normal pulses, No tenderness/ swelling Comment Review of Relevant I have reviewed the following items liz (where applicable) has been applied. Labs Laboratory Tests Test 08/23/18 05:15 White Blood Count 6.4 x10^3/uL (4.0-11.0) Red Blood Count 2.86 x10^6/uL (3.50-5.40) Hemoglobin 9.8 g/dL (12.0-15.5) Hematocrit 28.4 % (36.0-47.0) Mean Corpuscular Volume 99 fL (79-100) Mean Corpuscular Hemoglobin 34 pg (25-35) Mean Corpuscular Hemoglobin Concent 35 g/dL (31-37) Red Cell Distribution Width 14.1 % (11.5-14.5) Platelet Count 138 x10^3/uL (140-400) Neutrophils (%) (Auto) 90 % (31-73) Lymphocytes (%) (Auto) 3 % (24-48) Monocytes (%) (Auto) 5 % (0-9) Eosinophils (%) (Auto) 2 % (0-3) Basophils (%) (Auto) 0 % (0-3) Neutrophils # (Auto) 5.8 x10^3uL (1.8-7.7) Lymphocytes # (Auto) 0.2 x10^3/uL (1.0-4.8) Monocytes # (Auto) 0.3 x10^3/uL (0.0-1.1) Eosinophils # (Auto) 0.1 x10^3/uL (0.0-0.7) Basophils # (Auto) 0.0 x10^3/uL (0.0-0.2) Sodium Level 142 mmol/L (136-145) Potassium Level 4.0 mmol/L (3.5-5.1) Chloride Level 108 mmol/L (98-107) Carbon Dioxide Level 21 mmol/L (21-32) Anion Gap 13 (6-14) Blood Urea Nitrogen 35 mg/dL (7-20) Creatinine 3.0 mg/dL (0.6-1.0) Estimated GFR (Cockcroft-Gault) 16.1 Glucose Level 110 mg/dL (70-99) Calcium Level 9.0 mg/dL (8.5-10.1) Random Vancomycin Level 13.1 mcg/mL Microbiology 08/22/18 Blood Culture - Final, Complete 08/22/18 Urine Culture - Preliminary, Resulted 08/22/18 Urine Culture Result 1 (VARGHESE) - Preliminary, Resulted Medications Current Medications Piperacillin Sod/ Tazobactam Sod 3.375 gm/Sodium Chloride 50 ml @ 100 mls/hr 1X ONCE IV ; Start 08/22/18 at 02:15; Stop 08/22/18 at 02:44; Status UNV Sodium Chloride 500 ml @ 500 mls/hr 1X ONCE IV Last administered on at 02:27; Start 08/22/18 at 02:30; Stop 08/22/18 at 03:29; Status DC Vancomycin HCl 1.25 gm/Sodium Chloride 250 ml @ 166.667 mls/hr 1X ONCE IV Last administered on 08/22/18at 03:00; Start 08/22/18 at 03:00; Stop 08/22/18 at 04:29; Status DC Piperacillin Sod/ Tazobactam Sod 2.25 gm/Sodium Chloride 50 ml @ 100 mls/hr 1X ONCE IV Last administered on 08/22/18at 02:27; Start 08/22/18 at 02:30; Stop 08/22/18 at 02:59; Status DC Acetaminophen (Tylenol) 1,000 mg 1X ONCE PO Last administered on 08/22/18at 03 :05; Start 08/22/18 at 03:15; Stop 08/22/18 at 03:16; Status DC Sodium Chloride 500 ml @ 500 mls/hr 1X ONCE IV Last administered on at 03:30; Start 08/22/18 at 03:30; Stop 08/22/18 at 04:29; Status DC Ondansetron HCl (Zofran) 4 mg PRN Q8HRS PRN IV NAUSEA/VOMITING 1ST CHOICE; Start 08/22/18 at 04:30; Stop 08/22/18 at 08:59; Status DC Morphine Sulfate (Morphine Sulfate) 2 mg PRN Q2HR PRN IV SEVERE PAIN Last administered on 08/22/18at 19:29; Start 08/22/18 at 04:30; Stop 08/23/18 at 04 :29; Status DC Piperacillin Sod/ Tazobactam Sod 3.375 gm/Sodium Chloride 50 ml @ 100 mls/hr Q6HRS IV ; Start 08/22/18 at 06:00; Status UNV Sodium Chloride 500 ml @ 500 mls/hr 1X ONCE IV Last administered on at 06:17; Start 08/22/18 at 05:00; Stop 08/22/18 at 05:59; Status DC Piperacillin Sod/ Tazobactam Sod 2.25 gm/Sodium Chloride 50 ml @ 100 mls/hr Q8HRS IV Last administered on 08/24/18at 05:09; Start 08/22/18 at 14:00 Vancomycin HCl (Vanco Per Pharmacy) 1 each PRN DAILY PRN MC SEE COMMENTS Last administered on 08/23/18at 12:32; Start 08/22/18 at 05:45 Norepinephrine Bitartrate 250 ml @ 1.875 mls/ hr CONT PRN IV SEE I/O RECORD Last administered on 08/22/18at 06:19; Start 08/22/18 at 06:15 Sodium Chloride 500 ml @ 500 mls/hr 1X ONCE IV Last administered on at 06:18; Start 08/22/18 at 06:30; Stop 08/22/18 at 07:29; Status DC Norepinephrine Bitartrate 250 ml @ As Directed STK-MED ONCE IV ; Start at 06:11; Stop 08/22/18 at 06:12; Status DC Vancomycin HCl (Vancomycin Random Level) 1 each 1X ONCE MC Last administered on 08/23/18at 05:00; Start 08/23/18 at 05:00; Stop 08/23/18 at 05:01; Status DC Sodium Chloride 1,000 ml @ 125 mls/hr Q8H IV Last administered on 08/24/18at 06:04; Start 08/22/18 at 06:30 Ondansetron HCl (Zofran) 4 mg PRN Q6HRS PRN IV NAUSEA/VOMITING 1ST CHOICE; Start 08/22/18 at 09:00 Acetaminophen/ Codeine Phosphate (Tylenol #3) 1 tab PRN Q6HRS PRN PO MODERATE PAIN; Start 08/22/18 at 09:00 Acetaminophen (Tylenol) 500 mg PRN Q6HRS PRN PO MILD PAIN / TEMP Last administered on 08/22/18at 18:03; Start 08/22/18 at 09:00 Apixaban (Eliquis) 2.5 mg BID PO ; Start 08/22/18 at 09:30; Stop 08/22/18 at 09:30; Status DC Lorazepam (Ativan) 1 mg Q8HRS PO Last administered on 08/24/18at 06:03; Start 08/22/18 at 09:30 Oxycodone/ Acetaminophen (Percocet 5/325) 1 tab PRN Q6HRS PRN PO SEVERE PAIN Last administered on 08/23/18at 13:38; Start 08/22/18 at 09:00 Mirtazapine (Remeron) 15 mg QHS PO Last administered on 08/23/18at 21:26; Start 08/22/18 at 21:00 Ondansetron HCl (Zofran Odt) 8 mg PRN Q12HRS PRN PO NAUSEA/VOMITING; Start at 09:15 Apixaban (Eliquis) 5 mg BID PO Last administered on 08/23/18at 21:26; Start at 10:00 Lactobacillus Rhamnosus (Culturelle) 1 cap BID PO Last administered on at 21:26; Start 08/22/18 at 12:00 Info (Anti-Coagulation Monitoring By Pharmacy) 1 each PRN DAILY PRN MC SEE COMMENTS Last administered on 08/23/18at 11:32; Start 08/23/18 at 08:45 Nicotine (Nicoderm Cq 21mg) 1 patch DAILY TD Last administered on 08/23/18at 10 :27; Start 08/23/18 at 11:00 Sodium Chloride 1,000 ml @ 1,000 mls/hr Q1H PRN IV hypotension; Start at 09:15; Stop 08/23/18 at 15:14; Status DC Sodium Chloride 1,000 ml @ 400 mls/hr Q2H30M PRN IV PATENCY; Start 08/23/18 at 09:15; Stop 08/23/18 at 21:14; Status DC Info (PHARMACY MONITORING -- do not chart) 1 each PRN DAILY PRN MC SEE COMMENTS ; Start 08/23/18 at 10:00 Info (PHARMACY MONITORING -- do not chart) 1 each PRN DAILY PRN MC SEE COMMENTS ; Start 08/23/18 at 10:00; Status UNV Vancomycin HCl 500 mg/Sodium Chloride 100 ml @ 100 mls/hr QMWF IV Last administered on 08/23/18at 16:44; Start 08/23/18 at 16:00 Sodium Chloride 500 ml @ 500 mls/hr 1X ONCE IV Last administered on at 14:30; Start 08/23/18 at 14:30; Stop 08/23/18 at 15:29; Status DC Active Scripts Active Reported Eliquis (Apixaban) 5 Mg Tablet 5 Mg PO BID Remeron (Mirtazapine) 15 Mg Tablet 1 Tab PO QHS Lorazepam 1 Mg Tablet 1 Mg PO Q8HRS Zofran (Ondansetron Hcl) 8 Mg Tablet 8 Mg PO BID PRN Percocet 5-325 Mg Tablet (Oxycodone/Acetaminophen) 1 Each Tablet 1 Tab PO PRN Q6HRS PRN Vitals/I & O Vital Sign - Last 24 Hours 08/23/18 08/23/18 08/23/18 08/23/18 09:00 10:00 11:00 12:00 Pulse 91 91 98 Resp 14 14 14 B/P (MAP) 101/65 (77) 98/62 (74) 110/62 (78) Pulse Ox 97 97 97 O2 Delivery Room Air Room Air Room Air Room Air 08/23/18 08/23/18 08/23/18 08/23/18 12:00 13:00 13:38 13:48 Temp 99.5 99.5 Pulse 116 119 128 Resp 14 14 14 14 B/P (MAP) 98/60 (73) 105/60 (75) 135/78 (97) Pulse Ox 97 97 97 O2 Delivery Room Air Room Air Room Air Room Air 08/23/18 08/23/18 08/23/18 08/23/18 14:38 15:00 16:00 16:00 Pulse 105 98 Resp 18 14 14 B/P (MAP) 111/60 (77) 117/62 (80) Pulse Ox 97 97 O2 Delivery Room Air Room Air Room Air Room Air 08/23/18 08/23/18 08/23/18 08/23/18 17:00 18:00 19:15 19:45 Temp 98.8 98.0 98.8 98.0 Pulse 83 78 81 87 Resp 14 14 B/P (MAP) 105/60 (75) 85/52 (63) 93/51 (65) 113/77 (89) Pulse Ox 97 97 98 20 O2 Delivery Room Air Room Air Room Air 08/23/18 08/23/18 08/23/18 08/23/18 20:57 21:23 22:00 23:19 Pulse 90 95 95 B/P (MAP) 117/67 (84) 121/73 (89) 113/71 (85) O2 Delivery Room Air Room Air Room Air Room Air O2 Flow Rate 98.0 95.0 08/24/18 08/24/18 08/24/18 08/24/18 00:19 00:43 01:29 02:19 Temp 98.9 98.9 Pulse 86 101 112 Resp 16 B/P (MAP) 127/76 (93) 106/58 (74) 112/79 (90) Pulse Ox 98 98 96 O2 Delivery Room Air Room Air Room Air Room Air 08/24/18 08/24/18 08/24/18 08/24/18 03:21 04:19 05:03 05:19 Temp 98.9 98.9 Pulse 112 107 91 B/P (MAP) 135/79 (97) 146/87 (106) 131/77 (95) Pulse Ox 95 96 98 O2 Delivery Room Air Room Air Room Air Room Air 08/24/18 06:19 Pulse 98 B/P (MAP) 111/61 (78) O2 Delivery Room Air Intake and Output 08/23/18 08/23/18 08/24/18 15:00 23:00 07:00 Intake Total 715 ml 1605 ml 440 ml Output Total 675 ml 925 ml 625 ml Balance 40 ml 680 ml -185 ml Nutrition Consultation Dietary Evaluation: Recommendations by RD: Increase Calorie Intake, Protein supplementation Comments: REC liberalize diet to regular, honor food preferences, and provide snacks as requested REC [place] Instant Breakfast TID Expected Outcomes/Goals: PO intake to meet >75% est needs Interpretation of weight loss: >10% in 6 months Malnutrition Findings: Food and Nutrition Intake (Mod: <75% est energy req 7days Weight Status: Underweight OLGA PEREIRA MD Aug 24, 2018 08:04
[2018-08-24] MEDS: LACTOBACILLUS RHAMNOSUS GG 1 CAPSULE. PO SCH ×2 (09:20→20:35)
[2018-08-24] MEDS: NICOTINE 21MG PATCH. TD SCH (09:21)
[2018-08-24] MEDS: APIXABAN 5 MG TABLET. PO SCH ×2 (09:21→20:35)
--- NOTE | 2018-08-24 10:10 | PDOC ---
SUBJECTIVE ROS Stable, No new concerns Voiced by Pt application support technician OBJECTIVE Vital Signs Vital Signs Date Time Temp Pulse Resp B/P (MAP) Pulse Ox O2 Delivery O2 Flow Rate FiO2 08/24/18 08:00 Room Air 08/24/18 06:19 98 111/61 (78) 08/24/18 05:19 98.9 98 98.9 08/24/18 00:19 16 08/23/18 22:00 95.0 I & 0 Intake and Output 08/24/18 07:00 Intake Total 2760 ml Output Total 2225 ml Balance 535 ml Intake Oral 1355 ml IV Total 1405 ml Output Urine Total 50 ml Drainage Total 2175 ml # Bowel Movements 1 PHYSICAL EXAM Physical Exam GENERAL: NAD , Alert HEENT: Clear. NECK: No increased JVD. LUNGS: Clear. CARDIAC: Without S3 or rub. ABDOMEN: Soft, nontender. No bruits. EXTREMITIES: No edema. NEUROLOGIC: Nonfocal localizing - Bilat nephrostomy + with Good UOP Rt > Lt DIAGNOSIS/ASSESSMENT Assessment & Plan End-stage renal disease secondary to obstructive uropathy- Neph- Dr. Hay - [facility] On HD since January developed MAYA Has Bilat Nephrostomy - Good UOP , but doesnt to have renal recovery Fever. On Abx as per ID off pressors. 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 Has Bilateral nephrostomy tubes, On HD since Follows with Urology , Plan to Internalize once she gains wt as per Pt Metastatic cervical cancer Discussed with Pt and family at bedside COMMENT/RELEVANT DATA Meds Current Medications Medications (Trade) Dose Ordered Sig/Jordon Start Time Stop Time Status Last Admin Dose Admin Acetaminophen (Tylenol) 500 mg PRN Q6HRS PRN 08/22/18 09:00 08/22/18 18:03 500 MG Acetaminophen/ Codeine Phosphate (Tylenol #3) 1 tab PRN Q6HRS PRN 08/22/18 09:00 Acyclovir (Zovirax) 1 ami 5XDAY 08/24/18 10:00 Apixaban (Eliquis) 5 mg BID 08/22/18 10:00 08/24/18 09:21 5 MG Info (Anti-Coagulation Monitoring By Pharmacy) 1 each PRN DAILY PRN 08/23/18 08:45 08/23/18 11:32 1 EACH Info (PHARMACY MONITORING -- do not chart) 1 each PRN DAILY PRN 08/23/18 10:00 UNV Lactobacillus Rhamnosus (Culturelle) 1 cap BID 08/22/18 12:00 08/24/18 09:20 1 CAP Lorazepam (Ativan) 1 mg Q8HRS 08/22/18 09:30 08/24/18 06:03 1 MG Mirtazapine (Remeron) 15 mg QHS 08/22/18 21:00 08/23/18 21:26 15 MG Morphine Sulfate (Morphine Sulfate) 2 mg PRN Q2HR PRN 08/22/18 04:30 08/23/18 04:29 DC 08/22/18 19:29 2 MG Nicotine (Nicoderm Cq 21mg) 1 patch DAILY 08/23/18 11:00 08/24/18 09:21 1 PATCH Norepinephrine Bitartrate 250 ml @ As Directed STK-MED ONCE 08/22/18 06:11 08/22/18 06:12 DC Ondansetron HCl (Zofran Odt) 8 mg PRN Q12HRS PRN 08/22/18 09:15 Ondansetron HCl (Zofran) 4 mg PRN Q6HRS PRN 08/22/18 09:00 Oxycodone/ Acetaminophen (Percocet 5/325) 1 tab PRN Q6HRS PRN 08/22/18 09:00 08/23/18 13:38 1 TAB Piperacillin Sod/ Tazobactam Sod 2.25 gm/Sodium Chloride 50 ml @ 100 mls/hr Q8HRS 08/22/18 14:00 08/24/18 05:09 100 MLS/HR Piperacillin Sod/ Tazobactam Sod 3.375 gm/Sodium Chloride 50 ml @ 100 mls/hr Q6HRS 08/22/18 06:00 UNV Sodium Chloride 500 ml @ 500 mls/hr 1X ONCE 08/23/18 14:30 08/23/18 15:29 DC 08/23/18 14:30 500 MLS/HR Vancomycin HCl (Vanco Per Pharmacy) 1 each PRN DAILY PRN 08/22/18 05:45 08/23/18 12:32 1 EACH Vancomycin HCl (Vancomycin Random Level) 1 each 1X ONCE 08/23/18 05:00 08/23/18 05:01 DC 08/23/18 05:00 1 EACH Vancomycin HCl 1.25 gm/Sodium Chloride 250 ml @ 166.667 mls/hr 1X ONCE 08/22/18 03:00 08/22/18 04:29 DC 08/22/18 03:00 166.667 MLS/HR Vancomycin HCl 500 mg/Sodium Chloride 100 ml @ 100 mls/hr QMWF 08/23/18 16:00 08/23/18 16:44 100 MLS/HR Results All relevant outside records, renal labs, imaging studies, telemetry/EKG's were reviewed. ALVAREZ MARTINEZ MD Aug 24, 2018 10:10
[2018-08-24] MEDS: ACYCLOVIR 5% TOPICAL OINT 5GM TUBE. TP SCH ×4 (10:33→23:20)
[2018-08-24] MEDS: VANCOMYCIN PER PHARMACY MC PRN (15:58)
[2018-08-24] MEDS: MIRTAZAPINE 15 MG TABLET PO SCH (20:35)
[2018-08-25 03:00] VITALS: BP 141/90
[2018-08-25] MEDS: IV NORMAL SALINE 1000ML BAG 1,000 ML IV SCH ×2 (04:14→17:11)
[2018-08-25 05:30] LABS: BASO % 1 % (0-3); EOS # 0.2 x10^3/uL (0.0-0.7); EOS % 5 % (0-3); HEMATOCRIT 27.2 % (36.0-47.0); HEMOGLOBIN 9.4 g/dL (12.0-15.5); LYMPH # 0.5 x10^3/uL (1.0-4.8); LYMPH % 15 % (24-48); MEAN CORPUSCULAR HEMOGLOBIN 34 pg (25-35); MEAN CORPUSCULAR HGB CONC 35 g/dL (31-37); MEAN CORPUSCULAR VOLUME 98 fL (79-100); MONO # 0.4 x10^3/uL (0.0-1.1); MONO % 12 % (0-9); NEUT # 2.5 x10^3uL (1.8-7.7); NEUT % 68 % (31-73); PLATELET COUNT 172 x10^3/uL (140-400); RED BLOOD COUNT 2.78 x10^6/uL (3.50-5.40); RED CELL DISTRIBUTION WIDTH 14.8 % (11.5-14.5); WHITE BLOOD COUNT 3.7 x10^3/uL (4.0-11.0)
[2018-08-25] MEDS: PIPERACILLIN/TAZOBACTAM 2.25 GM in IV NORMAL SALINE 50ML 50 ML IV SCH ×2 (05:56→19:04)
--- NOTE | 2018-08-25 06:43 | PDOC ---
Infectious Disease Note Subjective Subjective Feels better already. Hoping to go home soon HD cath feels better Has been ambulating/eating No F/C/S/SOA/Rash/N/V/D ROS ROS o/w neg Vital Sign Vital Signs Vital Signs Date Time Temp Pulse Resp B/P (MAP) Pulse Ox O2 Delivery O2 Flow Rate FiO2 08/25/18 03:00 99.3 90 20 141/90 (107) 93 Room Air 99.3 Physical Exam PHYSICAL EXAM GENERAL: Alert and oriented female, not in distress. Ambulated without complications HEENT: nml cont. OC/Op -clear NECK: Supple, no JVP, no lymphadenopathy. LUNGS: Clear. HEART: S1, S2 regular. ABDOMEN: Benign. + BS EXTREMITIES: No edema, cyanosis. SKIN: Unremarkable. NEUROLOGIC: The patient is neurologically intact. LINES: The patient does have a tunneled hemodialysis catheter in the right upper chest, NT this am. Nephrostomy tubes are unremarkable, although the left side is not draining much. Right side is the main one that drains. Labs Lab Laboratory Tests Test 08/25/18 04:45 White Blood Count 3.7 x10^3/uL (4.0-11.0) Red Blood Count 2.78 x10^6/uL (3.50-5.40) Hemoglobin 9.4 g/dL (12.0-15.5) Hematocrit 27.2 % (36.0-47.0) Mean Corpuscular Volume 98 fL (79-100) Mean Corpuscular Hemoglobin 34 pg (25-35) Mean Corpuscular Hemoglobin Concent 35 g/dL (31-37) Red Cell Distribution Width 14.8 % (11.5-14.5) Platelet Count 172 x10^3/uL (140-400) Neutrophils (%) (Auto) 68 % (31-73) Lymphocytes (%) (Auto) 15 % (24-48) Monocytes (%) (Auto) 12 % (0-9) Eosinophils (%) (Auto) 5 % (0-3) Basophils (%) (Auto) 1 % (0-3) Neutrophils # (Auto) 2.5 x10^3uL (1.8-7.7) Lymphocytes # (Auto) 0.5 x10^3/uL (1.0-4.8) Monocytes # (Auto) 0.4 x10^3/uL (0.0-1.1) Eosinophils # (Auto) 0.2 x10^3/uL (0.0-0.7) Basophils # (Auto) 0.0 x10^3/uL (0.0-0.2) Micro Microbiology 08/22/18 Blood Culture - Preliminary, Resulted NO GROWTH AFTER 1 DAY Objective Assessment Fever. - improved Leukocytosis - improved - now leukopenia GPC- sepsis POA 08/22 cult pending from Hypotension -off pressors. GNR UTI - POA 08/22 End-stage renal disease, on hemodialysis Bilateral nephrostomy tubes Metastatic cervical cancer. Plan Plan of Care Clinically improved F/u culture/labs Cont vanc and zosyn for now D/w family supportive care D/w nursing PREM CARLOS MD Aug 25, 2018 06:43
[2018-08-25 07:00] VITALS: BP 133/84
[2018-08-25] MEDS: ACYCLOVIR 5% TOPICAL OINT 5GM TUBE. TP SCH ×5 (07:11→21:43)
[2018-08-25] MEDS: LORazepam 1 MG TABLET PO SCH ×3 (07:11→21:42)
[2018-08-25] MEDS: LACTOBACILLUS RHAMNOSUS GG 1 CAPSULE. PO SCH ×2 (09:00→21:43)
[2018-08-25] MEDS: NICOTINE 21MG PATCH. TD SCH (09:35)
[2018-08-25] MEDS: APIXABAN 5 MG TABLET. PO SCH ×2 (09:35→21:43)
[2018-08-25 11:10] VITALS: BP 121/80
--- NOTE | 2018-08-25 11:42 | PDOC ---
PROGRESS NOTES Chief Complaint Chief Complaint Assessment/Plan Septic shock off low-dose pressor - urine vs HD catheter. ID following. Heathersyn, vanco Bilateral indwelling nephrostomy tubes secondary to mechanical obstruction from advanced cervical carcinoma-right draining more than the left-as per IR keep the left as it is draining some urine Cervical cancer with mets, finished chemo ESRD, known patient of Dr. 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 IR is Dr. morley. Last seen maybe a week or a month ago and advised to leave the left nephrostomy tube in as it is draining some though not great. She is also chemotherapy patient, has a right indwelling tunneled dialysis catheter. Occasionally being changed and last changed maybe a month ago. There is some redness there but patient claims that it's much better since started on IV antibiotics since admission. Chest x-ray is negative for any acute process but urinalysis shows 5-10 WBC with 0 or moderate bacteria. Urine cultures pending. Off levophed for low blood pressure. Last fever 101F 08/22/18 at noon. No ambulation issues, appetite today this breakfast but usually on good days she eats decently as per family. Lives alone. Anxious to leave. Discussed plan with daughter bedside. Blood cultures x2 positive GPC and urine with 100K CFU, discussed with ID. clinically better, + bcx final result still pending Vitals Vitals Vital Signs Date Time Temp Pulse Resp B/P (MAP) Pulse Ox O2 Delivery O2 Flow Rate FiO2 08/25/18 11:10 98.5 88 16 121/80 (94) 93 Room Air 98.5 Physical Exam Physical Exam GENERAL: Alert and oriented female, not in distress. Ambulated without complications HEENT: nml cont. OC/Op -clear NECK: Supple, no JVP, no lymphadenopathy. LUNGS: Clear. HEART: S1, S2 regular. ABDOMEN: Benign. + BS EXTREMITIES: No edema, cyanosis. SKIN: Unremarkable. NEUROLOGIC: The patient is neurologically intact. LINES: The patient does have a tunneled hemodialysis catheter in the right upper chest, NT this am. Nephrostomy tubes are unremarkable, although the left side is not draining much. Right side is the main one that drains. General: Alert, Oriented X3, Cooperative, No acute distress Lungs: Clear, Other Abdomen: Normal bowel sounds, Soft, No tenderness, No hepatosplenomegaly, No masses, Other (bilateral nephrostomy tubes with right draining more urine than the left) Extremities: No clubbing, No cyanosis, No edema, Normal pulses, No tenderness/ swelling Labs LABS Laboratory Tests Test 08/25/18 04:45 White Blood Count 3.7 x10^3/uL (4.0-11.0) Red Blood Count 2.78 x10^6/uL (3.50-5.40) Hemoglobin 9.4 g/dL (12.0-15.5) Hematocrit 27.2 % (36.0-47.0) Mean Corpuscular Volume 98 fL (79-100) Mean Corpuscular Hemoglobin 34 pg (25-35) Mean Corpuscular Hemoglobin Concent 35 g/dL (31-37) Red Cell Distribution Width 14.8 % (11.5-14.5) Platelet Count 172 x10^3/uL (140-400) Neutrophils (%) (Auto) 68 % (31-73) Lymphocytes (%) (Auto) 15 % (24-48) Monocytes (%) (Auto) 12 % (0-9) Eosinophils (%) (Auto) 5 % (0-3) Basophils (%) (Auto) 1 % (0-3) Neutrophils # (Auto) 2.5 x10^3uL (1.8-7.7) Lymphocytes # (Auto) 0.5 x10^3/uL (1.0-4.8) Monocytes # (Auto) 0.4 x10^3/uL (0.0-1.1) Eosinophils # (Auto) 0.2 x10^3/uL (0.0-0.7) Basophils # (Auto) 0.0 x10^3/uL (0.0-0.2) Comment Review of Relevant I have reviewed the following items liz (where applicable) has been applied. Labs Laboratory Tests Test 08/25/18 04:45 White Blood Count 3.7 x10^3/uL (4.0-11.0) Red Blood Count 2.78 x10^6/uL (3.50-5.40) Hemoglobin 9.4 g/dL (12.0-15.5) Hematocrit 27.2 % (36.0-47.0) Mean Corpuscular Volume 98 fL (79-100) Mean Corpuscular Hemoglobin 34 pg (25-35) Mean Corpuscular Hemoglobin Concent 35 g/dL (31-37) Red Cell Distribution Width 14.8 % (11.5-14.5) Platelet Count 172 x10^3/uL (140-400) Neutrophils (%) (Auto) 68 % (31-73) Lymphocytes (%) (Auto) 15 % (24-48) Monocytes (%) (Auto) 12 % (0-9) Eosinophils (%) (Auto) 5 % (0-3) Basophils (%) (Auto) 1 % (0-3) Neutrophils # (Auto) 2.5 x10^3uL (1.8-7.7) Lymphocytes # (Auto) 0.5 x10^3/uL (1.0-4.8) Monocytes # (Auto) 0.4 x10^3/uL (0.0-1.1) Eosinophils # (Auto) 0.2 x10^3/uL (0.0-0.7) Basophils # (Auto) 0.0 x10^3/uL (0.0-0.2) Laboratory Tests Test 08/25/18 04:45 White Blood Count 3.7 x10^3/uL (4.0-11.0) Red Blood Count 2.78 x10^6/uL (3.50-5.40) Hemoglobin 9.4 g/dL (12.0-15.5) Hematocrit 27.2 % (36.0-47.0) Mean Corpuscular Volume 98 fL (79-100) Mean Corpuscular Hemoglobin 34 pg (25-35) Mean Corpuscular Hemoglobin Concent 35 g/dL (31-37) Red Cell Distribution Width 14.8 % (11.5-14.5) Platelet Count 172 x10^3/uL (140-400) Neutrophils (%) (Auto) 68 % (31-73) Lymphocytes (%) (Auto) 15 % (24-48) Monocytes (%) (Auto) 12 % (0-9) Eosinophils (%) (Auto) 5 % (0-3) Basophils (%) (Auto) 1 % (0-3) Neutrophils # (Auto) 2.5 x10^3uL (1.8-7.7) Lymphocytes # (Auto) 0.5 x10^3/uL (1.0-4.8) Monocytes # (Auto) 0.4 x10^3/uL (0.0-1.1) Eosinophils # (Auto) 0.2 x10^3/uL (0.0-0.7) Basophils # (Auto) 0.0 x10^3/uL (0.0-0.2) Microbiology 08/22/18 Blood Culture - Final, Complete 08/22/18 Throat Culture - Final, Complete 08/22/18 - Final, Complete 08/22/18 Urine Culture - Preliminary, Resulted 08/22/18 Urine Culture Result 1 (VARGHESE) - Preliminary, Resulted Medications Current Medications Piperacillin Sod/ Tazobactam Sod 3.375 gm/Sodium Chloride 50 ml @ 100 mls/hr 1X ONCE IV ; Start 08/22/18 at 02:15; Stop 08/22/18 at 02:44; Status UNV Sodium Chloride 500 ml @ 500 mls/hr 1X ONCE IV Last administered on at 02:27; Start 08/22/18 at 02:30; Stop 08/22/18 at 03:29; Status DC Vancomycin HCl 1.25 gm/Sodium Chloride 250 ml @ 166.667 mls/hr 1X ONCE IV Last administered on 08/22/18at 03:00; Start 08/22/18 at 03:00; Stop 08/22/18 at 04:29; Status DC Piperacillin Sod/ Tazobactam Sod 2.25 gm/Sodium Chloride 50 ml @ 100 mls/hr 1X ONCE IV Last administered on 08/22/18at 02:27; Start 08/22/18 at 02:30; Stop 08/22/18 at 02:59; Status DC Acetaminophen (Tylenol) 1,000 mg 1X ONCE PO Last administered on 08/22/18at 03 :05; Start 08/22/18 at 03:15; Stop 08/22/18 at 03:16; Status DC Sodium Chloride 500 ml @ 500 mls/hr 1X ONCE IV Last administered on at 03:30; Start 08/22/18 at 03:30; Stop 08/22/18 at 04:29; Status DC Ondansetron HCl (Zofran) 4 mg PRN Q8HRS PRN IV NAUSEA/VOMITING 1ST CHOICE; Start 08/22/18 at 04:30; Stop 08/22/18 at 08:59; Status DC Morphine Sulfate (Morphine Sulfate) 2 mg PRN Q2HR PRN IV SEVERE PAIN Last administered on 08/22/18at 19:29; Start 08/22/18 at 04:30; Stop 08/23/18 at 04 :29; Status DC Piperacillin Sod/ Tazobactam Sod 3.375 gm/Sodium Chloride 50 ml @ 100 mls/hr Q6HRS IV ; Start 08/22/18 at 06:00; Status UNV Sodium Chloride 500 ml @ 500 mls/hr 1X ONCE IV Last administered on at 06:17; Start 08/22/18 at 05:00; Stop 08/22/18 at 05:59; Status DC Piperacillin Sod/ Tazobactam Sod 2.25 gm/Sodium Chloride 50 ml @ 100 mls/hr Q8HRS IV Last administered on 08/25/18at 05:56; Start 08/22/18 at 14:00 Vancomycin HCl (Vanco Per Pharmacy) 1 each PRN DAILY PRN MC SEE COMMENTS Last administered on 08/24/18at 15:58; Start 08/22/18 at 05:45 Norepinephrine Bitartrate 250 ml @ 1.875 mls/ hr CONT PRN IV SEE I/O RECORD Last administered on 08/22/18at 06:19; Start 08/22/18 at 06:15 Sodium Chloride 500 ml @ 500 mls/hr 1X ONCE IV Last administered on at 06:18; Start 08/22/18 at 06:30; Stop 08/22/18 at 07:29; Status DC Norepinephrine Bitartrate 250 ml @ As Directed STK-MED ONCE IV ; Start at 06:11; Stop 08/22/18 at 06:12; Status DC Vancomycin HCl (Vancomycin Random Level) 1 each 1X ONCE MC Last administered on 08/23/18at 05:00; Start 08/23/18 at 05:00; Stop 08/23/18 at 05:01; Status DC Sodium Chloride 1,000 ml @ 125 mls/hr Q8H IV Last administered on 08/25/18at 04:14; Start 08/22/18 at 06:30 Ondansetron HCl (Zofran) 4 mg PRN Q6HRS PRN IV NAUSEA/VOMITING 1ST CHOICE; Start 08/22/18 at 09:00 Acetaminophen/ Codeine Phosphate (Tylenol #3) 1 tab PRN Q6HRS PRN PO MODERATE PAIN; Start 08/22/18 at 09:00 Acetaminophen (Tylenol) 500 mg PRN Q6HRS PRN PO MILD PAIN / TEMP Last administered on 08/22/18at 18:03; Start 08/22/18 at 09:00 Apixaban (Eliquis) 2.5 mg BID PO ; Start 08/22/18 at 09:30; Stop 08/22/18 at 09:30; Status DC Lorazepam (Ativan) 1 mg Q8HRS PO Last administered on 08/25/18at 07:11; Start 08/22/18 at 09:30 Oxycodone/ Acetaminophen (Percocet 5/325) 1 tab PRN Q6HRS PRN PO SEVERE PAIN Last administered on 08/23/18at 13:38; Start 08/22/18 at 09:00 Mirtazapine (Remeron) 15 mg QHS PO Last administered on 08/24/18at 20:35; Start 08/22/18 at 21:00 Ondansetron HCl (Zofran Odt) 8 mg PRN Q12HRS PRN PO NAUSEA/VOMITING; Start at 09:15 Apixaban (Eliquis) 5 mg BID PO Last administered on 08/25/18at 09:35; Start at 10:00 Lactobacillus Rhamnosus (Culturelle) 1 cap BID PO Last administered on at 20:35; Start 08/22/18 at 12:00 Info (Anti-Coagulation Monitoring By Pharmacy) 1 each PRN DAILY PRN MC SEE COMMENTS Last administered on 08/23/18at 11:32; Start 08/23/18 at 08:45 Nicotine (Nicoderm Cq 21mg) 1 patch DAILY TD Last administered on 08/25/18at 09 :35; Start 08/23/18 at 11:00 Sodium Chloride 1,000 ml @ 1,000 mls/hr Q1H PRN IV hypotension; Start at 09:15; Stop 08/23/18 at 15:14; Status DC Sodium Chloride 1,000 ml @ 400 mls/hr Q2H30M PRN IV PATENCY; Start 08/23/18 at 09:15; Stop 08/23/18 at 21:14; Status DC Info (PHARMACY MONITORING -- do not chart) 1 each PRN DAILY PRN MC SEE COMMENTS ; Start 08/23/18 at 10:00 Info (PHARMACY MONITORING -- do not chart) 1 each PRN DAILY PRN MC SEE COMMENTS ; Start 08/23/18 at 10:00; Status UNV Vancomycin HCl 500 mg/Sodium Chloride 100 ml @ 100 mls/hr QMWF IV Last administered on 08/23/18at 16:44; Start 08/23/18 at 16:00 Sodium Chloride 500 ml @ 500 mls/hr 1X ONCE IV Last administered on at 14:30; Start 08/23/18 at 14:30; Stop 08/23/18 at 15:29; Status DC Acyclovir (Zovirax) 1 ami 5XDAY TP Last administered on 08/25/18at 09:38; Start 08/24/18 at 10:00 Active Scripts Active Reported Eliquis (Apixaban) 5 Mg Tablet 5 Mg PO BID Remeron (Mirtazapine) 15 Mg Tablet 1 Tab PO QHS Lorazepam 1 Mg Tablet 1 Mg PO Q8HRS Zofran (Ondansetron Hcl) 8 Mg Tablet 8 Mg PO BID PRN Percocet 5-325 Mg Tablet (Oxycodone/Acetaminophen) 1 Each Tablet 1 Tab PO PRN Q6HRS PRN Vitals/I & O Vital Sign - Last 24 Hours 08/24/18 08/24/18 08/24/18 08/24/18 12:00 16:00 19:00 20:00 Temp 98.0 98.5 99.3 98.0 98.5 99.3 Pulse 89 90 98 Resp 16 16 20 B/P (MAP) 139/80 (99) 107/57 (74) 130/85 (100) Pulse Ox 98 98 93 O2 Delivery Room Air Room Air Room Air Room Air 08/24/18 08/25/18 08/25/18 08/25/18 23:00 03:00 07:00 08:00 Temp 98.2 99.3 97.7 98.2 99.3 97.7 Pulse 92 90 86 Resp 20 20 20 B/P (MAP) 143/94 (110) 141/90 (107) 133/84 (100) Pulse Ox 92 93 96 O2 Delivery Room Air Room Air Room Air Room Air 08/25/18 11:10 Temp 98.5 98.5 Pulse 88 Resp 16 B/P (MAP) 121/80 (94) Pulse Ox 93 O2 Delivery Room Air Intake and Output 08/24/18 08/24/18 08/25/18 15:00 23:00 07:00 Intake Total 530 ml 530 ml Output Total 450 ml 0 ml 850 ml Balance -450 ml 530 ml -320 ml Nutrition Consultation Dietary Evaluation: Recommendations by RD: Increase Calorie Intake, Protein supplementation Comments: REC liberalize diet to regular, honor food preferences, and provide snacks as requested REC [place] Instant Breakfast TID Expected Outcomes/Goals: PO intake to meet >75% est needs Interpretation of weight loss: >10% in 6 months Malnutrition Findings: Food and Nutrition Intake (Mod: <75% est energy req 7days Weight Status: Underweight CELIO MOREL MD Aug 25, 2018 11:42
[2018-08-25] MEDS: VANCOMYCIN PER PHARMACY MC PRN (13:39)
[2018-08-25] MEDS ORDERED: IV NORMAL SALINE 1000ML BAG 1,000 ML IV PRN (14:46)
[2018-08-25] MEDS ORDERED: 0.9 % SODIUM CHLORIDE 10 ML DISP.SYRIN. IV PRN ×2 (15:00)
[2018-08-25] MEDS ORDERED: DIALYSIS PATIENT. MC PRN ×2 (15:00)
--- NOTE | 2018-08-25 15:22 | PDOC ---
SUBJECTIVE ROS Stable, No new concerns,wants to go home OBJECTIVE Vital Signs Vital Signs Date Time Temp Pulse Resp B/P (MAP) Pulse Ox O2 Delivery O2 Flow Rate FiO2 08/25/18 11:10 98.5 88 16 121/80 (94) 93 Room Air 98.5 I & 0 Intake and Output 08/25/18 07:00 Intake Total 1060 ml Output Total 1300 ml Balance -240 ml Intake Oral 960 ml IV Total 100 ml Output Urine Total 0 ml Drainage Total 1300 ml # Bowel Movements 1 PHYSICAL EXAM Physical Exam GENERAL: NAD , Alert HEENT: Clear. NECK: No increased JVD. LUNGS: Clear. CARDIAC: Without S3 or rub. ABDOMEN: Soft, nontender. No bruits. EXTREMITIES: No edema. NEUROLOGIC: Nonfocal localizing - Bilat nephrostomy + with Good UOP Rt > Lt DIAGNOSIS/ASSESSMENT Assessment & Plan End-stage renal disease secondary to obstructive uropathy- Neph- Dr. Hay - MWF On HD since January developed MAYA Has Bilat Nephrostomy - Good UOP followed by Dr. 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 Has Bilateral nephrostomy tubes, On HD since Follows with Urology , Plan to Internalize once she gains wt as per Pt Metastatic cervical cancer Discussed with Pt and supervisor production COMMENT/RELEVANT DATA Meds Current Medications Medications (Trade) Dose Ordered Sig/Jordon Start Time Stop Time Status Last Admin Dose Admin Acetaminophen (Tylenol) 500 mg PRN Q6HRS PRN 08/22/18 09:00 08/22/18 18:03 500 MG Acetaminophen/ Codeine Phosphate (Tylenol #3) 1 tab PRN Q6HRS PRN 08/22/18 09:00 Acyclovir (Zovirax) 1 ami 5XDAY 08/24/18 10:00 08/25/18 09:38 1 AMI Apixaban (Eliquis) 5 mg BID 08/22/18 10:00 08/25/18 09:35 5 MG Info (Anti-Coagulation Monitoring By Pharmacy) 1 each PRN DAILY PRN 08/23/18 08:45 08/23/18 11:32 1 EACH Info (PHARMACY MONITORING -- do not chart) 1 each PRN DAILY PRN 08/25/18 15:00 UNV Lactobacillus Rhamnosus (Culturelle) 1 cap BID 08/22/18 12:00 08/24/18 20:35 1 CAP Lorazepam (Ativan) 1 mg Q8HRS 08/22/18 09:30 08/25/18 07:11 1 MG Mirtazapine (Remeron) 15 mg QHS 08/22/18 21:00 08/24/18 20:35 15 MG Morphine Sulfate (Morphine Sulfate) 2 mg PRN Q2HR PRN 08/22/18 04:30 08/23/18 04:29 DC 08/22/18 19:29 2 MG Nicotine (Nicoderm Cq 21mg) 1 patch DAILY 08/23/18 11:00 08/25/18 09:35 1 PATCH Norepinephrine Bitartrate 250 ml @ As Directed STK-MED ONCE 08/22/18 06:11 08/22/18 06:12 DC Ondansetron HCl (Zofran Odt) 8 mg PRN Q12HRS PRN 08/22/18 09:15 Ondansetron HCl (Zofran) 4 mg PRN Q6HRS PRN 08/22/18 09:00 Oxycodone/ Acetaminophen (Percocet 5/325) 1 tab PRN Q6HRS PRN 08/22/18 09:00 08/23/18 13:38 1 TAB Piperacillin Sod/ Tazobactam Sod 2.25 gm/Sodium Chloride 50 ml @ 100 mls/hr Q8HRS 08/22/18 14:00 08/25/18 05:56 100 MLS/HR Piperacillin Sod/ Tazobactam Sod 3.375 gm/Sodium Chloride 50 ml @ 100 mls/hr Q6HRS 08/22/18 06:00 UNV Sodium Chloride (Normal Saline Flush) 10 ml 1X PRN PRN 08/25/18 15:00 08/26/18 14:59 Vancomycin HCl (Vanco Per Pharmacy) 1 each PRN DAILY PRN 08/22/18 05:45 08/25/18 13:39 1 EACH Vancomycin HCl (Vancomycin Random Level) 1 each 1X ONCE 08/23/18 05:00 08/23/18 05:01 DC 08/23/18 05:00 1 EACH Vancomycin HCl 1.25 gm/Sodium Chloride 250 ml @ 166.667 mls/hr 1X ONCE 08/22/18 03:00 08/22/18 04:29 DC 08/22/18 03:00 166.667 MLS/HR Vancomycin HCl 500 mg/Sodium Chloride 100 ml @ 100 mls/hr QMWF 08/23/18 16:00 08/23/18 16:44 100 MLS/HR Lab Laboratory Tests Test 08/25/18 04:45 White Blood Count 3.7 x10^3/uL (4.0-11.0) Red Blood Count 2.78 x10^6/uL (3.50-5.40) Hemoglobin 9.4 g/dL (12.0-15.5) Hematocrit 27.2 % (36.0-47.0) Mean Corpuscular Volume 98 fL (79-100) Mean Corpuscular Hemoglobin 34 pg (25-35) Mean Corpuscular Hemoglobin Concent 35 g/dL (31-37) Red Cell Distribution Width 14.8 % (11.5-14.5) Platelet Count 172 x10^3/uL (140-400) Neutrophils (%) (Auto) 68 % (31-73) Lymphocytes (%) (Auto) 15 % (24-48) Monocytes (%) (Auto) 12 % (0-9) Eosinophils (%) (Auto) 5 % (0-3) Basophils (%) (Auto) 1 % (0-3) Neutrophils # (Auto) 2.5 x10^3uL (1.8-7.7) Lymphocytes # (Auto) 0.5 x10^3/uL (1.0-4.8) Monocytes # (Auto) 0.4 x10^3/uL (0.0-1.1) Eosinophils # (Auto) 0.2 x10^3/uL (0.0-0.7) Basophils # (Auto) 0.0 x10^3/uL (0.0-0.2) Results All relevant outside records, renal labs, imaging studies, telemetry/EKG's were reviewed. ALVAREZ MARTINEZ MD Aug 25, 2018 15:22
[2018-08-25 19:00] VITALS: BP 125/85
[2018-08-25] MEDS: VANCOMYCIN 500 MG in IV NORMAL SALINE 100ML 100 ML IV SCH (20:03)
[2018-08-25] MEDS: MIRTAZAPINE 15 MG TABLET PO SCH (21:43)
[2018-08-25 23:00] VITALS: BP 111/78
[2018-08-26] MEDS: PIPERACILLIN/TAZOBACTAM 2.25 GM in IV NORMAL SALINE 50ML 50 ML IV SCH ×2 (00:35→06:12)
[2018-08-26 03:00] VITALS: BP 109/66
[2018-08-26 04:50] LABS: BASO % 1 % (0-3); EOS # 0.1 x10^3/uL (0.0-0.7); EOS % 3 % (0-3); HEMATOCRIT 29.9 % (36.0-47.0); HEMOGLOBIN 10.6 g/dL (12.0-15.5); LYMPH # 0.6 x10^3/uL (1.0-4.8); LYMPH % 16 % (24-48); MEAN CORPUSCULAR HEMOGLOBIN 34 pg (25-35); MEAN CORPUSCULAR HGB CONC 35 g/dL (31-37); MEAN CORPUSCULAR VOLUME 97 fL (79-100); MONO # 0.5 x10^3/uL (0.0-1.1); MONO % 14 % (0-9); NEUT # 2.6 x10^3uL (1.8-7.7); NEUT % 67 % (31-73); PLATELET COUNT 192 x10^3/uL (140-400); RED BLOOD COUNT 3.08 x10^6/uL (3.50-5.40); RED CELL DISTRIBUTION WIDTH 14.5 % (11.5-14.5); WHITE BLOOD COUNT 3.9 x10^3/uL (4.0-11.0)
[2018-08-26 05:44] LABS: CALCIUM 8.8 mg/dL (8.5-10.1); CREATININE 1.7 mg/dL (0.6-1.0)
[2018-08-26] MEDS: ACYCLOVIR 5% TOPICAL OINT 5GM TUBE. TP SCH ×5 (06:13→21:04)
[2018-08-26] MEDS: LORazepam 1 MG TABLET PO SCH ×2 (06:13→14:00)
[2018-08-26] MEDS: IV NORMAL SALINE 1000ML BAG 1,000 ML IV SCH (06:14)
[2018-08-26 07:00] VITALS: BP 105/73
[2018-08-26] MEDS: LACTOBACILLUS RHAMNOSUS GG 1 CAPSULE. PO SCH ×2 (09:11→21:02)
[2018-08-26] MEDS: APIXABAN 5 MG TABLET. PO SCH ×2 (09:11→21:02)
[2018-08-26] MEDS: NICOTINE 21MG PATCH. TD SCH (09:11)
--- NOTE | 2018-08-26 09:59 | PDOC ---
Infectious Disease Note Subjective Subjective Feels better already. Hoping to go home soon. Bored HD cath feels better Has been ambulating/eating No F/C/S/SOA/Rash/N/V/D Vital Sign Vital Signs Vital Signs Date Time Temp Pulse Resp B/P (MAP) Pulse Ox O2 Delivery O2 Flow Rate FiO2 08/26/18 07:00 97.9 90 18 105/73 (84) 98 97.9 08/25/18 20:00 Room Air Physical Exam PHYSICAL EXAM GENERAL: Alert and oriented female, not in distress. Ambulated without complications HEENT: nml cont. OC/Op -clear NECK: Supple, no JVP, no lymphadenopathy. LUNGS: Clear. HEART: S1, S2 regular. ABDOMEN: Benign. + BS EXTREMITIES: No edema, cyanosis. SKIN: Unremarkable. NEUROLOGIC: The patient is neurologically intact. LINES: The patient does have a tunneled hemodialysis catheter in the right upper chest, NT this am. Nephrostomy tubes are unremarkable, although the left side is not draining much. Right side is the main one that drains. Labs Lab Laboratory Tests Test 08/26/18 04:15 White Blood Count 3.9 x10^3/uL (4.0-11.0) Red Blood Count 3.08 x10^6/uL (3.50-5.40) Hemoglobin 10.6 g/dL (12.0-15.5) Hematocrit 29.9 % (36.0-47.0) Mean Corpuscular Volume 97 fL (79-100) Mean Corpuscular Hemoglobin 34 pg (25-35) Mean Corpuscular Hemoglobin Concent 35 g/dL (31-37) Red Cell Distribution Width 14.5 % (11.5-14.5) Platelet Count 192 x10^3/uL (140-400) Neutrophils (%) (Auto) 67 % (31-73) Lymphocytes (%) (Auto) 16 % (24-48) Monocytes (%) (Auto) 14 % (0-9) Eosinophils (%) (Auto) 3 % (0-3) Basophils (%) (Auto) 1 % (0-3) Neutrophils # (Auto) 2.6 x10^3uL (1.8-7.7) Lymphocytes # (Auto) 0.6 x10^3/uL (1.0-4.8) Monocytes # (Auto) 0.5 x10^3/uL (0.0-1.1) Eosinophils # (Auto) 0.1 x10^3/uL (0.0-0.7) Basophils # (Auto) 0.0 x10^3/uL (0.0-0.2) Sodium Level 145 mmol/L (136-145) Potassium Level 3.0 mmol/L (3.5-5.1) Chloride Level 108 mmol/L (98-107) Carbon Dioxide Level 28 mmol/L (21-32) Anion Gap 9 (6-14) Blood Urea Nitrogen 4 mg/dL (7-20) Creatinine 1.7 mg/dL (0.6-1.0) Estimated GFR (Cockcroft-Gault) 31.0 Glucose Level 104 mg/dL (70-99) Calcium Level 8.8 mg/dL (8.5-10.1) Micro 08/22 Urine Pseudomonas putida Greater than 100,000 colony forming units per mL ANTIMICROBIAL SUSCEPTIBILITY Final Comment S = Susceptible; I = Intermediate; R = Resistant P = Positive; N = Negative MICS are expressed in micrograms per mL Antibiotic RSLT#1 RSLT#2 RSLT#3 RSLT#4 Amikacin S =8 Cefepime S =4 Cefotaxime S =8 Ceftazidime S =8 Ceftriaxone S =8 Ciprofloxacin S =0.5 Gentamicin S<=1 Imipenem I =8 Meropenem S =4 Tetracycline S =4 Ticarcillin R>=128 Tobramycin S =4 Performed at: - [facility] Microbiology 08/22/18 Blood Culture - Preliminary, Resulted NO GROWTH AFTER 1 DAY Objective Assessment Fever. - improved Leukocytosis - improved - now leukopenia GPC- sepsis POA 08/22 cult pending from Hypotension -off pressors. Pseudomonas Putida UTI - POA 08/22 End-stage renal disease, on hemodialysis Bilateral nephrostomy tubes Metastatic cervical cancer. Plan Plan of Care Clinically improved F/u culture from Blood need to R/o Staph aureus/labs Cont vanc D/c zosyn dose Gent D/w family supportive care D/w nursing PREM CARLOS MD Aug 26, 2018 09:59
[2018-08-26] MEDS ORDERED: DEXTROSE 5% IV ONE (10:30)
[2018-08-26] MEDS ORDERED: GENTAMICIN SULFATE IV ONE (10:30)
[2018-08-26] MEDS ORDERED: POTASSIUM CHLORIDE 20 MEQ TABLET.ER. PO ONE (11:45)
--- NOTE | 2018-08-26 12:37 | PDOC ---
SUBJECTIVE ROS Stable, No new concerns,wants to go home OBJECTIVE Vital Signs Vital Signs Date Time Temp Pulse Resp B/P (MAP) Pulse Ox O2 Delivery O2 Flow Rate FiO2 08/26/18 07:00 97.9 90 18 105/73 (84) 98 97.9 08/25/18 20:00 Room Air I & 0 Intake and Output 08/26/18 07:00 Intake Total 360 ml Output Total 120 ml Balance 240 ml Intake Oral 360 ml Output Urine Total 20 ml Drainage Total 100 ml PHYSICAL EXAM Physical Exam GENERAL: NAD , Alert HEENT: Clear. NECK: No increased JVD. LUNGS: Clear. CARDIAC: Without S3 or rub. ABDOMEN: Soft, nontender. No bruits. EXTREMITIES: No edema. NEUROLOGIC: Nonfocal localizing - Bilat nephrostomy + with Good UOP Rt > Lt DIAGNOSIS/ASSESSMENT Assessment & Plan End-stage renal disease secondary to obstructive uropathy- Neph- Dr. Hay - MWF On HD since January developed MAYA Has Bilat Nephrostomy - Good UOP followed by Dr. 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 Has Bilateral nephrostomy tubes, On HD since Follows with Urology , Plan to Internalize once she gains wt as per Pt Metastatic cervical cancer Dc as per primary COMMENT/RELEVANT DATA Meds Current Medications Medications (Trade) Dose Ordered Sig/Jordon Start Time Stop Time Status Last Admin Dose Admin Acetaminophen (Tylenol) 500 mg PRN Q6HRS PRN 08/22/18 09:00 08/22/18 18:03 500 MG Acetaminophen/ Codeine Phosphate (Tylenol #3) 1 tab PRN Q6HRS PRN 08/22/18 09:00 Acyclovir (Zovirax) 1 ami 5XDAY 08/24/18 10:00 08/26/18 10:18 1 AMI Apixaban (Eliquis) 5 mg BID 08/22/18 10:00 08/26/18 09:11 5 MG Gentamicin Sulfate 130 mg/ Dextrose 103.25 ml @ 103.25 mls/hr 1X ONCE 08/26/18 10:30 08/26/18 11:29 DC 08/26/18 11:03 103.25 MLS/HR Gentamicin Sulfate 1 each PRN DAILY PRN 08/26/18 10:00 Info (Anti-Coagulation Monitoring By Pharmacy) 1 each PRN DAILY PRN 08/23/18 08:45 08/23/18 11:32 1 EACH Info (PHARMACY MONITORING -- do not chart) 1 each PRN DAILY PRN 08/25/18 15:00 UNV Lactobacillus Rhamnosus (Culturelle) 1 cap BID 08/22/18 12:00 08/26/18 09:11 1 CAP Lorazepam (Ativan) 1 mg Q8HRS 08/22/18 09:30 08/26/18 06:13 1 MG Mirtazapine (Remeron) 15 mg QHS 08/22/18 21:00 08/25/18 21:43 15 MG Morphine Sulfate (Morphine Sulfate) 2 mg PRN Q2HR PRN 08/22/18 04:30 08/23/18 04:29 DC 08/22/18 19:29 2 MG Nicotine (Nicoderm Cq 21mg) 1 patch DAILY 08/23/18 11:00 08/26/18 09:11 1 PATCH Norepinephrine Bitartrate 250 ml @ As Directed STK-MED ONCE 08/22/18 06:11 08/22/18 06:12 DC Ondansetron HCl (Zofran Odt) 8 mg PRN Q12HRS PRN 08/22/18 09:15 Ondansetron HCl (Zofran) 4 mg PRN Q6HRS PRN 08/22/18 09:00 Oxycodone/ Acetaminophen (Percocet 5/325) 1 tab PRN Q6HRS PRN 08/22/18 09:00 08/23/18 13:38 1 TAB Piperacillin Sod/ Tazobactam Sod 2.25 gm/Sodium Chloride 50 ml @ 100 mls/hr Q8HRS 08/22/18 14:00 08/26/18 09:58 DC 08/26/18 06:12 100 MLS/HR Piperacillin Sod/ Tazobactam Sod 3.375 gm/Sodium Chloride 50 ml @ 100 mls/hr Q6HRS 08/22/18 06:00 UNV Potassium Chloride (Klor-Con) 40 meq 1X ONCE 08/26/18 11:45 08/26/18 11:46 DC Sodium Chloride (Normal Saline Flush) 10 ml 1X PRN PRN 08/25/18 15:00 10/18/18 14:59 Vancomycin HCl (Vanco Per Pharmacy) 1 each PRN DAILY PRN 08/22/18 05:45 08/25/18 13:39 1 EACH Vancomycin HCl (Vancomycin Random Level) 1 each 1X ONCE 08/23/18 05:00 08/23/18 05:01 DC 08/23/18 05:00 1 EACH Vancomycin HCl 1.25 gm/Sodium Chloride 250 ml @ 166.667 mls/hr 1X ONCE 08/22/18 03:00 08/22/18 04:29 DC 08/22/18 03:00 166.667 MLS/HR Vancomycin HCl 500 mg/Sodium Chloride 100 ml @ 100 mls/hr QMWF 08/23/18 16:00 08/25/18 20:03 100 MLS/HR Lab Laboratory Tests Test 08/26/18 04:15 White Blood Count 3.9 x10^3/uL (4.0-11.0) Red Blood Count 3.08 x10^6/uL (3.50-5.40) Hemoglobin 10.6 g/dL (12.0-15.5) Hematocrit 29.9 % (36.0-47.0) Mean Corpuscular Volume 97 fL (79-100) Mean Corpuscular Hemoglobin 34 pg (25-35) Mean Corpuscular Hemoglobin Concent 35 g/dL (31-37) Red Cell Distribution Width 14.5 % (11.5-14.5) Platelet Count 192 x10^3/uL (140-400) Neutrophils (%) (Auto) 67 % (31-73) Lymphocytes (%) (Auto) 16 % (24-48) Monocytes (%) (Auto) 14 % (0-9) Eosinophils (%) (Auto) 3 % (0-3) Basophils (%) (Auto) 1 % (0-3) Neutrophils # (Auto) 2.6 x10^3uL (1.8-7.7) Lymphocytes # (Auto) 0.6 x10^3/uL (1.0-4.8) Monocytes # (Auto) 0.5 x10^3/uL (0.0-1.1) Eosinophils # (Auto) 0.1 x10^3/uL (0.0-0.7) Basophils # (Auto) 0.0 x10^3/uL (0.0-0.2) Sodium Level 145 mmol/L (136-145) Potassium Level 3.0 mmol/L (3.5-5.1) Chloride Level 108 mmol/L (98-107) Carbon Dioxide Level 28 mmol/L (21-32) Anion Gap 9 (6-14) Blood Urea Nitrogen 4 mg/dL (7-20) Creatinine 1.7 mg/dL (0.6-1.0) Estimated GFR (Cockcroft-Gault) 31.0 Glucose Level 104 mg/dL (70-99) Calcium Level 8.8 mg/dL (8.5-10.1) Results All relevant outside records, renal labs, imaging studies, telemetry/EKG's were reviewed. ALVAREZ MARTINEZ MD Aug 26, 2018 12:37
--- NOTE | 2018-08-26 13:22 | PDOC ---
PROGRESS NOTES Chief Complaint Chief Complaint Assessment/Plan Septic shock off low-dose pressor - urine vs HD catheter. ID following. Zosyn, vanco Bilateral indwelling nephrostomy tubes secondary to mechanical obstruction from advanced cervical carcinoma-right draining more than the left-as per IR keep the left as it is draining some urine Cervical cancer with mets, finished chemo ESRD, known patient of Dr. 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 IR is Dr. morley. Last seen maybe a week or a month ago and advised to leave the left nephrostomy tube in as it is draining some though not great. She is also chemotherapy patient, has a right indwelling tunneled dialysis catheter. Occasionally being changed and last changed maybe a month ago. There is some redness there but patient claims that it's much better since started on IV antibiotics since admission. Chest x-ray is negative for any acute process but urinalysis shows 5-10 WBC with 0 or moderate bacteria. Urine cultures pending. Off levophed for low blood pressure. Last fever 101F 08/22/18 at noon. No ambulation issues, appetite today this breakfast but usually on good days she eats decently as per family. Lives alone. Anxious to leave. Discussed plan with daughter bedside. Blood cultures x2 positive GPC and urine with 100K CFU, discussed with ID. clinically better, + bcx final result still pending Vitals Vitals Vital Signs Date Time Temp Pulse Resp B/P (MAP) Pulse Ox O2 Delivery O2 Flow Rate FiO2 08/26/18 07:00 97.9 90 18 105/73 (84) 98 97.9 08/25/18 20:00 Room Air Physical Exam Physical Exam GENERAL: Alert and oriented female, not in distress. Ambulated without complications HEENT: nml cont. OC/Op -clear NECK: Supple, no JVP, no lymphadenopathy. LUNGS: Clear. HEART: S1, S2 regular. ABDOMEN: Benign. + BS EXTREMITIES: No edema, cyanosis. SKIN: Unremarkable. NEUROLOGIC: The patient is neurologically intact. LINES: The patient does have a tunneled hemodialysis catheter in the right upper chest, NT this am. Nephrostomy tubes are unremarkable, although the left side is not draining much. Right side is the main one that drains. General: Alert, Oriented X3, Cooperative, No acute distress Lungs: Clear, Other Abdomen: Normal bowel sounds, Soft, No tenderness, No hepatosplenomegaly, No masses, Other (bilateral nephrostomy tubes with right draining more urine than the left) Extremities: No clubbing, No cyanosis, No edema, Normal pulses, No tenderness/ swelling Labs LABS Laboratory Tests Test 08/26/18 04:15 White Blood Count 3.9 x10^3/uL (4.0-11.0) Red Blood Count 3.08 x10^6/uL (3.50-5.40) Hemoglobin 10.6 g/dL (12.0-15.5) Hematocrit 29.9 % (36.0-47.0) Mean Corpuscular Volume 97 fL (79-100) Mean Corpuscular Hemoglobin 34 pg (25-35) Mean Corpuscular Hemoglobin Concent 35 g/dL (31-37) Red Cell Distribution Width 14.5 % (11.5-14.5) Platelet Count 192 x10^3/uL (140-400) Neutrophils (%) (Auto) 67 % (31-73) Lymphocytes (%) (Auto) 16 % (24-48) Monocytes (%) (Auto) 14 % (0-9) Eosinophils (%) (Auto) 3 % (0-3) Basophils (%) (Auto) 1 % (0-3) Neutrophils # (Auto) 2.6 x10^3uL (1.8-7.7) Lymphocytes # (Auto) 0.6 x10^3/uL (1.0-4.8) Monocytes # (Auto) 0.5 x10^3/uL (0.0-1.1) Eosinophils # (Auto) 0.1 x10^3/uL (0.0-0.7) Basophils # (Auto) 0.0 x10^3/uL (0.0-0.2) Sodium Level 145 mmol/L (136-145) Potassium Level 3.0 mmol/L (3.5-5.1) Chloride Level 108 mmol/L (98-107) Carbon Dioxide Level 28 mmol/L (21-32) Anion Gap 9 (6-14) Blood Urea Nitrogen 4 mg/dL (7-20) Creatinine 1.7 mg/dL (0.6-1.0) Estimated GFR (Cockcroft-Gault) 31.0 Glucose Level 104 mg/dL (70-99) Calcium Level 8.8 mg/dL (8.5-10.1) Comment Review of Relevant I have reviewed the following items liz (where applicable) has been applied. Labs Laboratory Tests Test 08/25/18 04:45 08/26/18 04:15 White Blood Count 3.7 x10^3/uL (4.0-11.0) 3.9 x10^3/uL (4.0-11.0) Red Blood Count 2.78 x10^6/uL (3.50-5.40) 3.08 x10^6/uL (3.50-5.40) Hemoglobin 9.4 g/dL (12.0-15.5) 10.6 g/dL (12.0-15.5) Hematocrit 27.2 % (36.0-47.0) 29.9 % (36.0-47.0) Mean Corpuscular Volume 98 fL (79-100) 97 fL (79-100) Mean Corpuscular Hemoglobin 34 pg (25-35) 34 pg (25-35) Mean Corpuscular Hemoglobin Concent 35 g/dL (31-37) 35 g/dL (31-37) Red Cell Distribution Width 14.8 % (11.5-14.5) 14.5 % (11.5-14.5) Platelet Count 172 x10^3/uL (140-400) 192 x10^3/uL (140-400) Neutrophils (%) (Auto) 68 % (31-73) 67 % (31-73) Lymphocytes (%) (Auto) 15 % (24-48) 16 % (24-48) Monocytes (%) (Auto) 12 % (0-9) 14 % (0-9) Eosinophils (%) (Auto) 5 % (0-3) 3 % (0-3) Basophils (%) (Auto) 1 % (0-3) 1 % (0-3) Neutrophils # (Auto) 2.5 x10^3uL (1.8-7.7) 2.6 x10^3uL (1.8-7.7) Lymphocytes # (Auto) 0.5 x10^3/uL (1.0-4.8) 0.6 x10^3/uL (1.0-4.8) Monocytes # (Auto) 0.4 x10^3/uL (0.0-1.1) 0.5 x10^3/uL (0.0-1.1) Eosinophils # (Auto) 0.2 x10^3/uL (0.0-0.7) 0.1 x10^3/uL (0.0-0.7) Basophils # (Auto) 0.0 x10^3/uL (0.0-0.2) 0.0 x10^3/uL (0.0-0.2) Sodium Level 145 mmol/L (136-145) Potassium Level 3.0 mmol/L (3.5-5.1) Chloride Level 108 mmol/L (98-107) Carbon Dioxide Level 28 mmol/L (21-32) Anion Gap 9 (6-14) Blood Urea Nitrogen 4 mg/dL (7-20) Creatinine 1.7 mg/dL (0.6-1.0) Estimated GFR (Cockcroft-Gault) 31.0 Glucose Level 104 mg/dL (70-99) Calcium Level 8.8 mg/dL (8.5-10.1) Laboratory Tests Test 08/26/18 04:15 White Blood Count 3.9 x10^3/uL (4.0-11.0) Red Blood Count 3.08 x10^6/uL (3.50-5.40) Hemoglobin 10.6 g/dL (12.0-15.5) Hematocrit 29.9 % (36.0-47.0) Mean Corpuscular Volume 97 fL (79-100) Mean Corpuscular Hemoglobin 34 pg (25-35) Mean Corpuscular Hemoglobin Concent 35 g/dL (31-37) Red Cell Distribution Width 14.5 % (11.5-14.5) Platelet Count 192 x10^3/uL (140-400) Neutrophils (%) (Auto) 67 % (31-73) Lymphocytes (%) (Auto) 16 % (24-48) Monocytes (%) (Auto) 14 % (0-9) Eosinophils (%) (Auto) 3 % (0-3) Basophils (%) (Auto) 1 % (0-3) Neutrophils # (Auto) 2.6 x10^3uL (1.8-7.7) Lymphocytes # (Auto) 0.6 x10^3/uL (1.0-4.8) Monocytes # (Auto) 0.5 x10^3/uL (0.0-1.1) Eosinophils # (Auto) 0.1 x10^3/uL (0.0-0.7) Basophils # (Auto) 0.0 x10^3/uL (0.0-0.2) Sodium Level 145 mmol/L (136-145) Potassium Level 3.0 mmol/L (3.5-5.1) Chloride Level 108 mmol/L (98-107) Carbon Dioxide Level 28 mmol/L (21-32) Anion Gap 9 (6-14) Blood Urea Nitrogen 4 mg/dL (7-20) Creatinine 1.7 mg/dL (0.6-1.0) Estimated GFR (Cockcroft-Gault) 31.0 Glucose Level 104 mg/dL (70-99) Calcium Level 8.8 mg/dL (8.5-10.1) Microbiology 08/22/18 Blood Culture - Final, Complete 08/22/18 Throat Culture - Final, Complete 08/22/18 - Final, Complete 08/22/18 Urine Culture - Final, Complete 08/22/18 Urine Culture Result 1 (VARGHESE) - Final, Complete 08/22/18 Antimicrobic Susceptibility - Final, Complete Medications Current Medications Piperacillin Sod/ Tazobactam Sod 3.375 gm/Sodium Chloride 50 ml @ 100 mls/hr 1X ONCE IV ; Start 08/22/18 at 02:15; Stop 08/22/18 at 02:44; Status UNV Sodium Chloride 500 ml @ 500 mls/hr 1X ONCE IV Last administered on at 02:27; Start 08/22/18 at 02:30; Stop 08/22/18 at 03:29; Status DC Vancomycin HCl 1.25 gm/Sodium Chloride 250 ml @ 166.667 mls/hr 1X ONCE IV Last administered on 08/22/18at 03:00; Start 08/22/18 at 03:00; Stop 08/22/18 at 04:29; Status DC Piperacillin Sod/ Tazobactam Sod 2.25 gm/Sodium Chloride 50 ml @ 100 mls/hr 1X ONCE IV Last administered on 08/22/18at 02:27; Start 08/22/18 at 02:30; Stop 08/22/18 at 02:59; Status DC Acetaminophen (Tylenol) 1,000 mg 1X ONCE PO Last administered on 08/22/18at 03 :05; Start 08/22/18 at 03:15; Stop 08/22/18 at 03:16; Status DC Sodium Chloride 500 ml @ 500 mls/hr 1X ONCE IV Last administered on at 03:30; Start 08/22/18 at 03:30; Stop 08/22/18 at 04:29; Status DC Ondansetron HCl (Zofran) 4 mg PRN Q8HRS PRN IV NAUSEA/VOMITING 1ST CHOICE; Start 08/22/18 at 04:30; Stop 08/22/18 at 08:59; Status DC Morphine Sulfate (Morphine Sulfate) 2 mg PRN Q2HR PRN IV SEVERE PAIN Last administered on 08/22/18at 19:29; Start 08/22/18 at 04:30; Stop 08/23/18 at 04 :29; Status DC Piperacillin Sod/ Tazobactam Sod 3.375 gm/Sodium Chloride 50 ml @ 100 mls/hr Q6HRS IV ; Start 08/22/18 at 06:00; Status UNV Sodium Chloride 500 ml @ 500 mls/hr 1X ONCE IV Last administered on at 06:17; Start 08/22/18 at 05:00; Stop 08/22/18 at 05:59; Status DC Piperacillin Sod/ Tazobactam Sod 2.25 gm/Sodium Chloride 50 ml @ 100 mls/hr Q8HRS IV Last administered on 08/26/18at 06:12; Start 08/22/18 at 14:00; Stop 08/26/18 at 09:58; Status DC Vancomycin HCl (Vanco Per Pharmacy) 1 each PRN DAILY PRN MC SEE COMMENTS Last administered on 08/25/18at 13:39; Start 08/22/18 at 05:45 Norepinephrine Bitartrate 250 ml @ 1.875 mls/ hr CONT PRN IV SEE I/O RECORD Last administered on 08/22/18at 06:19; Start 08/22/18 at 06:15; Stop 08/25/18 at 11:40; Status DC Sodium Chloride 500 ml @ 500 mls/hr 1X ONCE IV Last administered on at 06:18; Start 08/22/18 at 06:30; Stop 08/22/18 at 07:29; Status DC Norepinephrine Bitartrate 250 ml @ As Directed STK-MED ONCE IV ; Start at 06:11; Stop 08/22/18 at 06:12; Status DC Vancomycin HCl (Vancomycin Random Level) 1 each 1X ONCE MC Last administered on 08/23/18at 05:00; Start 08/23/18 at 05:00; Stop 08/23/18 at 05:01; Status DC Sodium Chloride 1,000 ml @ 75 mls/hr [id number] IV Last administered on at 04:14; Start 08/22/18 at 06:30 Ondansetron HCl (Zofran) 4 mg PRN Q6HRS PRN IV NAUSEA/VOMITING 1ST CHOICE; Start 08/22/18 at 09:00 Acetaminophen/ Codeine Phosphate (Tylenol #3) 1 tab PRN Q6HRS PRN PO MODERATE PAIN; Start 08/22/18 at 09:00 Acetaminophen (Tylenol) 500 mg PRN Q6HRS PRN PO MILD PAIN / TEMP Last administered on 08/22/18at 18:03; Start 08/22/18 at 09:00 Apixaban (Eliquis) 2.5 mg BID PO ; Start 08/22/18 at 09:30; Stop 08/22/18 at 09:30; Status DC Lorazepam (Ativan) 1 mg Q8HRS PO Last administered on 08/26/18at 06:13; Start 08/22/18 at 09:30 Oxycodone/ Acetaminophen (Percocet 5/325) 1 tab PRN Q6HRS PRN PO SEVERE PAIN Last administered on 08/23/18at 13:38; Start 08/22/18 at 09:00 Mirtazapine (Remeron) 15 mg QHS PO Last administered on 08/25/18at 21:43; Start 08/22/18 at 21:00 Ondansetron HCl (Zofran Odt) 8 mg PRN Q12HRS PRN PO NAUSEA/VOMITING; Start at 09:15 Apixaban (Eliquis) 5 mg BID PO Last administered on 08/26/18at 09:11; Start at 10:00 Lactobacillus Rhamnosus (Culturelle) 1 cap BID PO Last administered on at 09:11; Start 08/22/18 at 12:00 Info (Anti-Coagulation Monitoring By Pharmacy) 1 each PRN DAILY PRN MC SEE COMMENTS Last administered on 08/23/18at 11:32; Start 08/23/18 at 08:45 Nicotine (Nicoderm Cq 21mg) 1 patch DAILY TD Last administered on 08/26/18at 09 :11; Start 08/23/18 at 11:00 Sodium Chloride 1,000 ml @ 1,000 mls/hr Q1H PRN IV hypotension; Start at 09:15; Stop 08/23/18 at 15:14; Status DC Sodium Chloride 1,000 ml @ 400 mls/hr Q2H30M PRN IV PATENCY; Start 08/23/18 at 09:15; Stop 08/23/18 at 21:14; Status DC Info (PHARMACY MONITORING -- do not chart) 1 each PRN DAILY PRN MC SEE COMMENTS ; Start 08/23/18 at 10:00 Info (PHARMACY MONITORING -- do not chart) 1 each PRN DAILY PRN MC SEE COMMENTS ; Start 08/23/18 at 10:00; Status UNV Vancomycin HCl 500 mg/Sodium Chloride 100 ml @ 100 mls/hr QMWF IV Last administered on 08/25/18at 20:03; Start 08/23/18 at 16:00 Sodium Chloride 500 ml @ 500 mls/hr 1X ONCE IV Last administered on at 14:30; Start 08/23/18 at 14:30; Stop 08/23/18 at 15:29; Status DC Acyclovir (Zovirax) 1 ami 5XDAY TP Last administered on 08/26/18at 10:18; Start 08/24/18 at 10:00 Sodium Chloride 1,000 ml @ 1,000 mls/hr Q1H PRN IV hypotension; Start at 14:46; Stop 08/25/18 at 20:45; Status DC Sodium Chloride (Normal Saline Flush) 10 ml 1X PRN PRN IV AP catheter pack; Start 08/25/18 at 15:00; Stop 08/26/18 at 14:59 Sodium Chloride (Normal Saline Flush) 10 ml 1X PRN PRN IV CEREAL POPPER catheter pack; Start 08/25/18 at 15:00; Stop 08/26/18 at 14:59 Info (PHARMACY MONITORING -- do not chart) 1 each PRN DAILY PRN MC SEE COMMENTS ; Start 08/25/18 at 15:00; Status UNV Info (PHARMACY MONITORING -- do not chart) 1 each PRN DAILY PRN MC SEE COMMENTS ; Start 08/25/18 at 15:00; Status UNV Gentamicin Sulfate 1 each PRN DAILY PRN MC SEE COMMENTS; Start 08/26/18 at 10: 00 Gentamicin Sulfate 130 mg/ Dextrose 103.25 ml @ 103.25 mls/hr 1X ONCE IV Last administered on 08/26/18at 11:03; Start 08/26/18 at 10:30; Stop 08/26/18 at 11:29; Status DC Potassium Chloride (Klor-Con) 40 meq 1X ONCE PO Last administered on at 13:02; Start 08/26/18 at 11:45; Stop 08/26/18 at 11:46; Status DC Active Scripts Active Reported Eliquis (Apixaban) 5 Mg Tablet 5 Mg PO BID Remeron (Mirtazapine) 15 Mg Tablet 1 Tab PO QHS Lorazepam 1 Mg Tablet 1 Mg PO Q8HRS Zofran (Ondansetron Hcl) 8 Mg Tablet 8 Mg PO BID PRN Percocet 5-325 Mg Tablet (Oxycodone/Acetaminophen) 1 Each Tablet 1 Tab PO PRN Q6HRS PRN Vitals/I & O Vital Sign - Last 24 Hours 08/25/18 08/25/18 08/25/18 08/26/18 19:00 20:00 23:00 03:00 Temp 98.4 98.2 98.0 98.4 98.2 98.0 Pulse 97 93 91 Resp 18 18 18 B/P (MAP) 125/85 (98) 111/78 (89) 109/66 (80) Pulse Ox 92 94 93 O2 Delivery Room Air 08/26/18 07:00 Temp 97.9 97.9 Pulse 90 Resp 18 B/P (MAP) 105/73 (84) Pulse Ox 98 Intake and Output 08/25/18 08/25/18 08/26/18 15:00 23:00 07:00 Intake Total 120 ml 240 ml Output Total 0 ml 120 ml Balance 120 ml 120 ml Nutrition Consultation Dietary Evaluation: Recommendations by RD: Increase Calorie Intake, Protein supplementation Comments: REC liberalize diet to regular, honor food preferences, and provide snacks as requested REC [place] Instant Breakfast TID Expected Outcomes/Goals: PO intake to meet >75% est needs Interpretation of weight loss: >10% in 6 months Malnutrition Findings: Food and Nutrition Intake (Mod: <75% est energy req 7days Weight Status: Underweight CELIO MOREL MD Aug 26, 2018 13:21
[2018-08-26] MEDS: GENTAMICIN PER PHARMACY. MC PRN (13:52)
[2018-08-26] MEDS: VANCOMYCIN PER PHARMACY MC PRN (13:54)
[2018-08-26] MEDS: ALPRAZolam 0.25 MG TABLET PO PRN ×2 (14:28→23:14)
[2018-08-26 15:00] VITALS: BP 118/80
[2018-08-26 19:00] VITALS: BP 109/80
[2018-08-26] MEDS: MIRTAZAPINE 15 MG TABLET PO SCH (21:02)
[2018-08-26] MEDS: oxyCODONE/APAP 5/325 1 TAB TABLET PO PRN (21:03)
[2018-08-26 23:00] VITALS: BP 112/66
[2018-08-27 03:00] VITALS: BP 143/82
[2018-08-27] MEDS ORDERED: GENTAMICIN RANDOM LEVEL. MC ONE (05:00)
[2018-08-27 06:44] LABS: CALCIUM 8.6 mg/dL (8.5-10.1); CREATININE 2.3 mg/dL (0.6-1.0); GFR 21.9; POTASSIUM 3.6 mmol/L (3.5-5.1)
[2018-08-27 06:56] LABS: BASO % 1 % (0-3); EOS # 0.2 x10^3/uL (0.0-0.7); EOS % 4 % (0-3); HEMATOCRIT 29.7 % (36.0-47.0); HEMOGLOBIN 10.2 g/dL (12.0-15.5); LYMPH % 26 % (24-48); MEAN CORPUSCULAR HEMOGLOBIN 34 pg (25-35); MEAN CORPUSCULAR HGB CONC 34 g/dL (31-37); MEAN CORPUSCULAR VOLUME 99 fL (79-100); MONO # 0.5 x10^3/uL (0.0-1.1); MONO % 14 % (0-9); NEUT # 2.1 x10^3uL (1.8-7.7); NEUT % 56 % (31-73); PLATELET COUNT 209 x10^3/uL (140-400); RED BLOOD COUNT 3.01 x10^6/uL (3.50-5.40); RED CELL DISTRIBUTION WIDTH 14.2 % (11.5-14.5); WHITE BLOOD COUNT 3.8 x10^3/uL (4.0-11.0)
[2018-08-27 07:00] VITALS: BP 147/88
[2018-08-27] MEDS: NICOTINE 21MG PATCH. TD SCH (08:30)
[2018-08-27] MEDS: LACTOBACILLUS RHAMNOSUS GG 1 CAPSULE. PO SCH (08:30)
[2018-08-27] MEDS: APIXABAN 5 MG TABLET. PO SCH (08:30)
[2018-08-27] MEDS: ACYCLOVIR 5% TOPICAL OINT 5GM TUBE. TP SCH ×2 (08:31→10:00)
[2018-08-27] MEDS: ALPRAZolam 0.25 MG TABLET PO PRN (08:31)
[2018-08-27] MEDS ORDERED: IV NORMAL SALINE 1000ML BAG 1,000 ML IV PRN ×2 (09:27)
[2018-08-27] MEDS ORDERED: DIALYSIS PATIENT. MC PRN ×2 (09:30)
--- NOTE | 2018-08-27 11:12 | PDOC ---
PROGRESS NOTES Chief Complaint Chief Complaint Assessment/Plan Septic shock off low-dose pressor - urine vs HD catheter. ID following. Zosyn, vanco Bilateral indwelling nephrostomy tubes secondary to mechanical obstruction from advanced cervical carcinoma-right draining more than the left-as per IR keep the left as it is draining some urine Cervical cancer with mets, finished chemo ESRD, known patient of Dr. 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 IR is Dr. morley. Last seen maybe a week or a month ago and advised to leave the left nephrostomy tube in as it is draining some though not great. She is also chemotherapy patient, has a right indwelling tunneled dialysis catheter. Occasionally being changed and last changed maybe a month ago. There is some redness there but patient claims that it's much better since started on IV antibiotics since admission. Chest x-ray is negative for any acute process but urinalysis shows 5-10 WBC with 0 or moderate bacteria. Urine cultures pending. Off levophed for low blood pressure. Last fever 101F 08/22/18 at noon. No ambulation issues, appetite today this breakfast but usually on good days she eats decently as per family. Lives alone. Anxious to leave. Discussed plan with daughter bedside. Blood cultures x2 positive GPC and urine with 100K CFU, discussed with ID. clinically better, + bcx final result still pending Vitals Vitals Vital Signs Date Time Temp Pulse Resp B/P (MAP) Pulse Ox O2 Delivery O2 Flow Rate FiO2 08/27/18 08:00 Room Air 95.0 08/27/18 07:00 97.9 87 18 147/88 (107) 94 97.9 Physical Exam Physical Exam GENERAL: Alert and oriented female, not in distress. Ambulated without complications HEENT: nml cont. OC/Op -clear NECK: Supple, no JVP, no lymphadenopathy. LUNGS: Clear. HEART: S1, S2 regular. ABDOMEN: Benign. + BS EXTREMITIES: No edema, cyanosis. SKIN: Unremarkable. NEUROLOGIC: The patient is neurologically intact. LINES: The patient does have a tunneled hemodialysis catheter in the right upper chest, NT this am. Nephrostomy tubes are unremarkable, although the left side is not draining much. Right side is the main one that drains. General: Alert, Oriented X3, Cooperative, No acute distress Lungs: Clear, Other Abdomen: Normal bowel sounds, Soft, No tenderness, No hepatosplenomegaly, No masses, Other (bilateral nephrostomy tubes with right draining more urine than the left) Extremities: No clubbing, No cyanosis, No edema, Normal pulses, No tenderness/ swelling Labs LABS Laboratory Tests Test 08/27/18 05:30 White Blood Count 3.8 x10^3/uL (4.0-11.0) Red Blood Count 3.01 x10^6/uL (3.50-5.40) Hemoglobin 10.2 g/dL (12.0-15.5) Hematocrit 29.7 % (36.0-47.0) Mean Corpuscular Volume 99 fL (79-100) Mean Corpuscular Hemoglobin 34 pg (25-35) Mean Corpuscular Hemoglobin Concent 34 g/dL (31-37) Red Cell Distribution Width 14.2 % (11.5-14.5) Platelet Count 209 x10^3/uL (140-400) Neutrophils (%) (Auto) 56 % (31-73) Lymphocytes (%) (Auto) 26 % (24-48) Monocytes (%) (Auto) 14 % (0-9) Eosinophils (%) (Auto) 4 % (0-3) Basophils (%) (Auto) 1 % (0-3) Neutrophils # (Auto) 2.1 x10^3uL (1.8-7.7) Lymphocytes # (Auto) 1.0 x10^3/uL (1.0-4.8) Monocytes # (Auto) 0.5 x10^3/uL (0.0-1.1) Eosinophils # (Auto) 0.2 x10^3/uL (0.0-0.7) Basophils # (Auto) 0.0 x10^3/uL (0.0-0.2) Sodium Level 145 mmol/L (136-145) Potassium Level 3.6 mmol/L (3.5-5.1) Chloride Level 110 mmol/L (98-107) Carbon Dioxide Level 26 mmol/L (21-32) Anion Gap 9 (6-14) Blood Urea Nitrogen 9 mg/dL (7-20) Creatinine 2.3 mg/dL (0.6-1.0) Estimated GFR (Cockcroft-Gault) 21.9 Glucose Level 93 mg/dL (70-99) Calcium Level 8.6 mg/dL (8.5-10.1) Random Gentamicin Level 3.5 mcg/mL Comment Review of Relevant I have reviewed the following items liz (where applicable) has been applied. Labs Laboratory Tests Test 08/26/18 04:15 08/27/18 05:30 White Blood Count 3.9 x10^3/uL (4.0-11.0) 3.8 x10^3/uL (4.0-11.0) Red Blood Count 3.08 x10^6/uL (3.50-5.40) 3.01 x10^6/uL (3.50-5.40) Hemoglobin 10.6 g/dL (12.0-15.5) 10.2 g/dL (12.0-15.5) Hematocrit 29.9 % (36.0-47.0) 29.7 % (36.0-47.0) Mean Corpuscular Volume 97 fL (79-100) 99 fL (79-100) Mean Corpuscular Hemoglobin 34 pg (25-35) 34 pg (25-35) Mean Corpuscular Hemoglobin Concent 35 g/dL (31-37) 34 g/dL (31-37) Red Cell Distribution Width 14.5 % (11.5-14.5) 14.2 % (11.5-14.5) Platelet Count 192 x10^3/uL (140-400) 209 x10^3/uL (140-400) Neutrophils (%) (Auto) 67 % (31-73) 56 % (31-73) Lymphocytes (%) (Auto) 16 % (24-48) 26 % (24-48) Monocytes (%) (Auto) 14 % (0-9) 14 % (0-9) Eosinophils (%) (Auto) 3 % (0-3) 4 % (0-3) Basophils (%) (Auto) 1 % (0-3) 1 % (0-3) Neutrophils # (Auto) 2.6 x10^3uL (1.8-7.7) 2.1 x10^3uL (1.8-7.7) Lymphocytes # (Auto) 0.6 x10^3/uL (1.0-4.8) 1.0 x10^3/uL (1.0-4.8) Monocytes # (Auto) 0.5 x10^3/uL (0.0-1.1) 0.5 x10^3/uL (0.0-1.1) Eosinophils # (Auto) 0.1 x10^3/uL (0.0-0.7) 0.2 x10^3/uL (0.0-0.7) Basophils # (Auto) 0.0 x10^3/uL (0.0-0.2) 0.0 x10^3/uL (0.0-0.2) Sodium Level 145 mmol/L (136-145) 145 mmol/L (136-145) Potassium Level 3.0 mmol/L (3.5-5.1) 3.6 mmol/L (3.5-5.1) Chloride Level 108 mmol/L (98-107) 110 mmol/L (98-107) Carbon Dioxide Level 28 mmol/L (21-32) 26 mmol/L (21-32) Anion Gap 9 (6-14) 9 (6-14) Blood Urea Nitrogen 4 mg/dL (7-20) 9 mg/dL (7-20) Creatinine 1.7 mg/dL (0.6-1.0) 2.3 mg/dL (0.6-1.0) Estimated GFR (Cockcroft-Gault) 31.0 21.9 Glucose Level 104 mg/dL (70-99) 93 mg/dL (70-99) Calcium Level 8.8 mg/dL (8.5-10.1) 8.6 mg/dL (8.5-10.1) Random Gentamicin Level 3.5 mcg/mL Laboratory Tests Test 08/27/18 05:30 White Blood Count 3.8 x10^3/uL (4.0-11.0) Red Blood Count 3.01 x10^6/uL (3.50-5.40) Hemoglobin 10.2 g/dL (12.0-15.5) Hematocrit 29.7 % (36.0-47.0) Mean Corpuscular Volume 99 fL (79-100) Mean Corpuscular Hemoglobin 34 pg (25-35) Mean Corpuscular Hemoglobin Concent 34 g/dL (31-37) Red Cell Distribution Width 14.2 % (11.5-14.5) Platelet Count 209 x10^3/uL (140-400) Neutrophils (%) (Auto) 56 % (31-73) Lymphocytes (%) (Auto) 26 % (24-48) Monocytes (%) (Auto) 14 % (0-9) Eosinophils (%) (Auto) 4 % (0-3) Basophils (%) (Auto) 1 % (0-3) Neutrophils # (Auto) 2.1 x10^3uL (1.8-7.7) Lymphocytes # (Auto) 1.0 x10^3/uL (1.0-4.8) Monocytes # (Auto) 0.5 x10^3/uL (0.0-1.1) Eosinophils # (Auto) 0.2 x10^3/uL (0.0-0.7) Basophils # (Auto) 0.0 x10^3/uL (0.0-0.2) Sodium Level 145 mmol/L (136-145) Potassium Level 3.6 mmol/L (3.5-5.1) Chloride Level 110 mmol/L (98-107) Carbon Dioxide Level 26 mmol/L (21-32) Anion Gap 9 (6-14) Blood Urea Nitrogen 9 mg/dL (7-20) Creatinine 2.3 mg/dL (0.6-1.0) Estimated GFR (Cockcroft-Gault) 21.9 Glucose Level 93 mg/dL (70-99) Calcium Level 8.6 mg/dL (8.5-10.1) Random Gentamicin Level 3.5 mcg/mL Microbiology 08/22/18 Blood Culture - Final, Complete 08/22/18 Throat Culture - Final, Complete 08/22/18 - Final, Complete 08/22/18 Urine Culture - Final, Complete 08/22/18 Urine Culture Result 1 (VARGHESE) - Final, Complete 08/22/18 Antimicrobic Susceptibility - Final, Complete Medications Current Medications Piperacillin Sod/ Tazobactam Sod 3.375 gm/Sodium Chloride 50 ml @ 100 mls/hr 1X ONCE IV ; Start 08/22/18 at 02:15; Stop 08/22/18 at 02:44; Status UNV Sodium Chloride 500 ml @ 500 mls/hr 1X ONCE IV Last administered on at 02:27; Start 08/22/18 at 02:30; Stop 08/22/18 at 03:29; Status DC Vancomycin HCl 1.25 gm/Sodium Chloride 250 ml @ 166.667 mls/hr 1X ONCE IV Last administered on 08/22/18at 03:00; Start 08/22/18 at 03:00; Stop 08/22/18 at 04:29; Status DC Piperacillin Sod/ Tazobactam Sod 2.25 gm/Sodium Chloride 50 ml @ 100 mls/hr 1X ONCE IV Last administered on 08/22/18at 02:27; Start 08/22/18 at 02:30; Stop 08/22/18 at 02:59; Status DC Acetaminophen (Tylenol) 1,000 mg 1X ONCE PO Last administered on 08/22/18at 03 :05; Start 08/22/18 at 03:15; Stop 08/22/18 at 03:16; Status DC Sodium Chloride 500 ml @ 500 mls/hr 1X ONCE IV Last administered on at 03:30; Start 08/22/18 at 03:30; Stop 08/22/18 at 04:29; Status DC Ondansetron HCl (Zofran) 4 mg PRN Q8HRS PRN IV NAUSEA/VOMITING 1ST CHOICE; Start 08/22/18 at 04:30; Stop 08/22/18 at 08:59; Status DC Morphine Sulfate (Morphine Sulfate) 2 mg PRN Q2HR PRN IV SEVERE PAIN Last administered on 08/22/18at 19:29; Start 08/22/18 at 04:30; Stop 08/23/18 at 04 :29; Status DC Piperacillin Sod/ Tazobactam Sod 3.375 gm/Sodium Chloride 50 ml @ 100 mls/hr Q6HRS IV ; Start 08/22/18 at 06:00; Status UNV Sodium Chloride 500 ml @ 500 mls/hr 1X ONCE IV Last administered on at 06:17; Start 08/22/18 at 05:00; Stop 08/22/18 at 05:59; Status DC Piperacillin Sod/ Tazobactam Sod 2.25 gm/Sodium Chloride 50 ml @ 100 mls/hr Q8HRS IV Last administered on 08/26/18at 06:12; Start 08/22/18 at 14:00; Stop 08/26/18 at 09:58; Status DC Vancomycin HCl (Vanco Per Pharmacy) 1 each PRN DAILY PRN MC SEE COMMENTS Last administered on 08/26/18at 13:54; Start 08/22/18 at 05:45 Norepinephrine Bitartrate 250 ml @ 1.875 mls/ hr CONT PRN IV SEE I/O RECORD Last administered on 08/22/18at 06:19; Start 08/22/18 at 06:15; Stop 08/25/18 at 11:40; Status DC Sodium Chloride 500 ml @ 500 mls/hr 1X ONCE IV Last administered on at 06:18; Start 08/22/18 at 06:30; Stop 08/22/18 at 07:29; Status DC Norepinephrine Bitartrate 250 ml @ As Directed STK-MED ONCE IV ; Start at 06:11; Stop 08/22/18 at 06:12; Status DC Vancomycin HCl (Vancomycin Random Level) 1 each 1X ONCE MC Last administered on 08/23/18at 05:00; Start 08/23/18 at 05:00; Stop 08/23/18 at 05:01; Status DC Sodium Chloride 1,000 ml @ 75 mls/hr [id number] IV Last administered on at 04:14; Start 08/22/18 at 06:30; Stop 08/26/18 at 13:21; Status DC Ondansetron HCl (Zofran) 4 mg PRN Q6HRS PRN IV NAUSEA/VOMITING 1ST CHOICE; Start 08/22/18 at 09:00 Acetaminophen/ Codeine Phosphate (Tylenol #3) 1 tab PRN Q6HRS PRN PO MODERATE PAIN; Start 08/22/18 at 09:00 Acetaminophen (Tylenol) 500 mg PRN Q6HRS PRN PO MILD PAIN / TEMP Last administered on 08/22/18at 18:03; Start 08/22/18 at 09:00 Apixaban (Eliquis) 2.5 mg BID PO ; Start 08/22/18 at 09:30; Stop 08/22/18 at 09:30; Status DC Lorazepam (Ativan) 1 mg Q8HRS PO Last administered on 08/26/18at 06:13; Start 08/22/18 at 09:30; Stop 08/26/18 at 14:17; Status DC Oxycodone/ Acetaminophen (Percocet 5/325) 1 tab PRN Q6HRS PRN PO SEVERE PAIN Last administered on 08/26/18at 21:03; Start 08/22/18 at 09:00 Mirtazapine (Remeron) 15 mg QHS PO Last administered on 08/26/18at 21:02; Start 08/22/18 at 21:00 Ondansetron HCl (Zofran Odt) 8 mg PRN Q12HRS PRN PO NAUSEA/VOMITING; Start at 09:15 Apixaban (Eliquis) 5 mg BID PO Last administered on 08/27/18at 08:30; Start at 10:00 Lactobacillus Rhamnosus (Culturelle) 1 cap BID PO Last administered on at 08:30; Start 08/22/18 at 12:00 Info (Anti-Coagulation Monitoring By Pharmacy) 1 each PRN DAILY PRN MC SEE COMMENTS Last administered on 08/23/18at 11:32; Start 08/23/18 at 08:45 Nicotine (Nicoderm Cq 21mg) 1 patch DAILY TD Last administered on 08/27/18at 08 :30; Start 08/23/18 at 11:00 Sodium Chloride 1,000 ml @ 1,000 mls/hr Q1H PRN IV hypotension; Start at 09:15; Stop 08/23/18 at 15:14; Status DC Sodium Chloride 1,000 ml @ 400 mls/hr Q2H30M PRN IV PATENCY; Start 08/23/18 at 09:15; Stop 08/23/18 at 21:14; Status DC Info (PHARMACY MONITORING -- do not chart) 1 each PRN DAILY PRN MC SEE COMMENTS ; Start 08/23/18 at 10:00; Status Cancel Info (PHARMACY MONITORING -- do not chart) 1 each PRN DAILY PRN MC SEE COMMENTS ; Start 08/23/18 at 10:00; Status UNV Vancomycin HCl 500 mg/Sodium Chloride 100 ml @ 100 mls/hr QMWF IV Last administered on 08/25/18at 20:03; Start 08/23/18 at 16:00 Sodium Chloride 500 ml @ 500 mls/hr 1X ONCE IV Last administered on at 14:30; Start 08/23/18 at 14:30; Stop 08/23/18 at 15:29; Status DC Acyclovir (Zovirax) 1 ami 5XDAY TP Last administered on 08/27/18at 08:31; Start 08/24/18 at 10:00 Sodium Chloride 1,000 ml @ 1,000 mls/hr Q1H PRN IV hypotension; Start at 14:46; Stop 08/25/18 at 20:45; Status DC Sodium Chloride (Normal Saline Flush) 10 ml 1X PRN PRN IV AP catheter pack; Start 08/25/18 at 15:00; Stop 08/26/18 at 14:59; Status DC Sodium Chloride (Normal Saline Flush) 10 ml 1X PRN PRN IV ABA THERAPIST catheter pack; Start 08/25/18 at 15:00; Stop 08/26/18 at 14:59; Status DC Info (PHARMACY MONITORING -- do not chart) 1 each PRN DAILY PRN MC SEE COMMENTS ; Start 08/25/18 at 15:00; Status UNV Info (PHARMACY MONITORING -- do not chart) 1 each PRN DAILY PRN MC SEE COMMENTS ; Start 08/25/18 at 15:00; Status UNV Gentamicin Sulfate 1 each PRN DAILY PRN MC SEE COMMENTS Last administered on at 13:52; Start 08/26/18 at 10:00 Gentamicin Sulfate 130 mg/ Dextrose 103.25 ml @ 103.25 mls/hr 1X ONCE IV Last administered on 08/26/18at 11:03; Start 08/26/18 at 10:30; Stop 08/26/18 at 11:29; Status DC Potassium Chloride (Klor-Con) 40 meq 1X ONCE PO Last administered on at 13:02; Start 08/26/18 at 11:45; Stop 08/26/18 at 11:46; Status DC Gentamicin Sulfate 1 each 1X ONCE MC ; Start 08/27/18 at 05:00; Stop at 05:01; Status DC Alprazolam (Xanax) 0.25 mg PRN Q8HRS PRN PO ANXIETY / AGITATION Last administered on 08/27/18at 08:31; Start 08/26/18 at 14:15 Sodium Chloride 1,000 ml @ 1,000 mls/hr Q1H PRN IV hypotension; Start at 09:27; Stop 08/27/18 at 15:26 Sodium Chloride 1,000 ml @ 400 mls/hr Q2H30M PRN IV PATENCY; Start 08/27/18 at 09:27; Stop 08/27/18 at 21:26 Info (PHARMACY MONITORING -- do not chart) 1 each PRN DAILY PRN MC SEE COMMENTS ; Start 08/27/18 at 09:30 Info (PHARMACY MONITORING -- do not chart) 1 each PRN DAILY PRN MC SEE COMMENTS ; Start 08/27/18 at 09:30; Status UNV Active Scripts Active Reported Eliquis (Apixaban) 5 Mg Tablet 5 Mg PO BID Remeron (Mirtazapine) 15 Mg Tablet 1 Tab PO QHS Lorazepam 1 Mg Tablet 1 Mg PO Q8HRS Zofran (Ondansetron Hcl) 8 Mg Tablet 8 Mg PO BID PRN Percocet 5-325 Mg Tablet (Oxycodone/Acetaminophen) 1 Each Tablet 1 Tab PO PRN Q6HRS PRN Vitals/I & O Vital Sign - Last 24 Hours 08/26/18 08/26/18 08/26/18 08/26/18 15:00 19:00 21:03 22:03 Temp 98.0 98.2 98.0 98.2 Pulse 101 106 Resp 20 20 18 B/P (MAP) 118/80 (93) 109/80 (90) Pulse Ox 96 92 O2 Delivery Room Air Room Air Room Air 08/26/18 08/27/18 08/27/18 08/27/18 23:00 03:00 07:00 08:00 Temp 97.5 98.0 97.9 97.5 98.0 97.9 Pulse 92 89 87 Resp B/P (MAP) 112/66 (81) 143/82 (102) 147/88 (107) Pulse Ox 96 98 94 O2 Delivery Room Air O2 Flow Rate 95.0 Intake and Output 08/26/18 08/26/18 08/27/18 15:00 23:00 07:00 Intake Total 463.25 ml 600 ml 120 ml Output Total 450 ml 600 ml 390 ml Balance 13.25 ml 0 ml -270 ml Nutrition Consultation Dietary Evaluation: Recommendations by RD: Increase Calorie Intake, Protein supplementation Comments: REC continue w/regular diet as ordered REC continue [place] Instant Breakfast TID Expected Outcomes/Goals: PO intake to meet >75% est needs - met at times, goal ongoing Interpretation of weight loss: >10% in 6 months Malnutrition Findings: Food and Nutrition Intake (Mod: <75% est energy req 7days Weight Status: Underweight CELIO MOREL MD Aug 27, 2018 11:12
--- NOTE | 2018-08-27 12:35 | PDOC ---
Infectious Disease Note Subjective Subjective Comfortable, denies pain/N/V/D/SOA/F/C/S ROS ROS per HPI otherwise neg Vital Sign Vital Signs Vital Signs Date Time Temp Pulse Resp B/P (MAP) Pulse Ox O2 Delivery O2 Flow Rate FiO2 08/27/18 08:00 Room Air 95.0 08/27/18 07:00 97.9 87 18 147/88 (107) 94 97.9 Physical Exam PHYSICAL EXAM GENERAL: Alert and oriented female, not in distress. HEENT: OC/Op -clear; hepatic-type lesion lower lip - healing NECK: Supple LUNGS: Clear. HEART: S1, S2 regular. ABDOMEN: BS active, soft, NT. Bilat nephrostomy tubes intact EXTREMITIES: No edema, cyanosis. SKIN: warm without rash NEUROLOGIC: Alert and oriented Tunneled HDC, no redness Labs Lab Laboratory Tests Test 08/27/18 05:30 White Blood Count 3.8 x10^3/uL (4.0-11.0) Red Blood Count 3.01 x10^6/uL (3.50-5.40) Hemoglobin 10.2 g/dL (12.0-15.5) Hematocrit 29.7 % (36.0-47.0) Mean Corpuscular Volume 99 fL (79-100) Mean Corpuscular Hemoglobin 34 pg (25-35) Mean Corpuscular Hemoglobin Concent 34 g/dL (31-37) Red Cell Distribution Width 14.2 % (11.5-14.5) Platelet Count 209 x10^3/uL (140-400) Neutrophils (%) (Auto) 56 % (31-73) Lymphocytes (%) (Auto) 26 % (24-48) Monocytes (%) (Auto) 14 % (0-9) Eosinophils (%) (Auto) 4 % (0-3) Basophils (%) (Auto) 1 % (0-3) Neutrophils # (Auto) 2.1 x10^3uL (1.8-7.7) Lymphocytes # (Auto) 1.0 x10^3/uL (1.0-4.8) Monocytes # (Auto) 0.5 x10^3/uL (0.0-1.1) Eosinophils # (Auto) 0.2 x10^3/uL (0.0-0.7) Basophils # (Auto) 0.0 x10^3/uL (0.0-0.2) Sodium Level 145 mmol/L (136-145) Potassium Level 3.6 mmol/L (3.5-5.1) Chloride Level 110 mmol/L (98-107) Carbon Dioxide Level 26 mmol/L (21-32) Anion Gap 9 (6-14) Blood Urea Nitrogen 9 mg/dL (7-20) Creatinine 2.3 mg/dL (0.6-1.0) Estimated GFR (Cockcroft-Gault) 21.9 Glucose Level 93 mg/dL (70-99) Calcium Level 8.6 mg/dL (8.5-10.1) Random Gentamicin Level 3.5 mcg/mL Micro URINE CULTURE RES 1 Final Pseudomonas putida Greater than 100,000 colony forming units per mL ANTIMICROBIAL SUSCEPTIBILITY Final Comment S = Susceptible; I = Intermediate; R = Resistant P = Positive; N = Negative MICS are expressed in micrograms per mL Antibiotic RSLT#1 RSLT#2 RSLT#3 RSLT#4 Amikacin S =8 Cefepime S =4 Cefotaxime S =8 Ceftazidime S =8 Ceftriaxone S =8 Ciprofloxacin S =0.5 Gentamicin S<=1 Imipenem I =8 Meropenem S =4 Tetracycline S =4 Ticarcillin R>=128 Tobramycin S =4 BLOOD CULTURE Final GRAM POSITIVE COCCI IN CLUSTERS 1 SET DRAWN, 2 OF 2 POSITIVE Objective Assessment Fever. - improved Leukocytosis - improved - now leukopenia GPC- sepsis POA 08/22 cult pending from Hypotension -off pressors. Pseudomonas Putida UTI - POA 08/22 End-stage renal disease, on hemodialysis Bilateral nephrostomy tubes Metastatic cervical cancer. Plan Plan of Care Clinically improved Awaiting GPC ID. Cont vanc Cont gent. Random trough 3.5 Monitor for toxicities Supportive care Attending Co-Sign The patient was seen and interviewed as well as examined at the bedside. The chart was reviewed. The case was discussed. Agree with the plan of care. CHRISTIANNE CISNEROS APRN Aug 27, 2018 12:35 BETY ELLSWORTH MD Aug 27, 2018 13:58
[2018-08-27] MEDS: GENTAMICIN PER PHARMACY. MC PRN (12:47)
[2018-08-27] MEDS: VANCOMYCIN PER PHARMACY MC PRN (12:48)
[2018-08-27 15:00] VITALS: BP 129/84
[2018-08-27] MEDS: [UNRECOGNIZED DRUG - OTHER] TP SCH ×2 (15:40→18:00)
[2018-08-27] MEDS: DOCOSANOL 10% TP SCH ×2 (15:40→18:00)
--- NOTE | 2018-08-27 15:55 | PDOC ---
SUBJECTIVE ROS Stable, No new concerns,wants to go home OBJECTIVE Vital Signs Vital Signs Date Time Temp Pulse Resp B/P (MAP) Pulse Ox O2 Delivery O2 Flow Rate FiO2 08/27/18 08:00 Room Air 95.0 08/27/18 07:00 97.9 87 18 147/88 (107) 94 97.9 I & 0 Intake and Output 08/27/18 07:00 Intake Total 1183.25 ml Output Total 1440 ml Balance -256.75 ml Intake Oral 1080 ml IV Total 103.25 ml Output Urine Total 600 ml Drainage Total 840 ml PHYSICAL EXAM Physical Exam GENERAL: NAD , Alert HEENT: Clear. NECK: No increased JVD. LUNGS: Clear. CARDIAC: Without S3 or rub. ABDOMEN: Soft, nontender. No bruits. EXTREMITIES: No edema. NEUROLOGIC: Nonfocal localizing - Bilat nephrostomy + with Good UOP Rt > Lt DIAGNOSIS/ASSESSMENT Assessment & Plan End-stage renal disease secondary to obstructive uropathy- Neph- Dr. Hay - MWF On HD since January developed MAYA Has Bilat Nephrostomy - Good UOP followed by Dr. Boateng Seen on HD, tolerating well- continue as Ordered She has graft surgery planned for 29, Fever- afebrile , awaiting Cx On Abx as per ID -BC is not finalized, she is dialysis pt, will cont vanc through HD As pt wants to go home Van on HD as OP, called and informed her dialysis Unit She has follow up appt with ID as OP Obstructive Uropathy- Dx in january 2018 Has Bilateral nephrostomy tubes, On HD since Follows with Urology , Plan to Internalize once she gains wt as per Pt Metastatic cervical cancer COMMENT/RELEVANT DATA Meds Current Medications Medications (Trade) Dose Ordered Sig/Jordon Start Time Stop Time Status Last Admin Dose Admin Acetaminophen (Tylenol) 500 mg PRN Q6HRS PRN 08/22/18 09:00 08/22/18 18:03 500 MG Acetaminophen/ Codeine Phosphate (Tylenol #3) 1 tab PRN Q6HRS PRN 08/22/18 09:00 Acyclovir (Zovirax) 1 ami 5XDAY 08/24/18 10:00 08/27/18 12:19 DC 08/27/18 08:31 1 AMI Alprazolam (Xanax) 0.25 mg PRN Q8HRS PRN 08/26/18 14:15 08/27/18 08:31 0.25 MG Apixaban (Eliquis) 5 mg BID 08/22/18 10:00 08/27/18 08:30 5 MG Docosanol (Abreva 10% Cold Sore Treatment) 1 ami 5XDAY 08/27/18 14:00 08/27/18 15:40 1 AMI Gentamicin Sulfate 130 mg/ Dextrose 103.25 ml @ 103.25 mls/hr 1X ONCE 08/26/18 10:30 08/26/18 11:29 DC 08/26/18 11:03 103.25 MLS/HR Gentamicin Sulfate 80 mg/ Dextrose 102 ml @ 204 mls/hr QMWF 08/27/18 16:00 Gentamicin Sulfate 1 each 1X ONCE 08/27/18 05:00 08/27/18 05:01 DC 08/27/18 05:00 1 EACH Info (Anti-Coagulation Monitoring By Pharmacy) 1 each PRN DAILY PRN 08/23/18 08:45 08/23/18 11:32 1 EACH Info (PHARMACY MONITORING -- do not chart) 1 each PRN DAILY PRN 08/27/18 09:30 UNV Lactobacillus Rhamnosus (Culturelle) 1 cap BID 08/22/18 12:00 08/27/18 08:30 1 CAP Lorazepam (Ativan) 1 mg Q8HRS 08/22/18 09:30 08/26/18 14:17 DC 08/26/18 06:13 1 MG Mirtazapine (Remeron) 15 mg QHS 08/22/18 21:00 08/26/18 21:02 15 MG Morphine Sulfate (Morphine Sulfate) 2 mg PRN Q2HR PRN 08/22/18 04:30 08/23/18 04:29 DC 08/22/18 19:29 2 MG Nicotine (Nicoderm Cq 21mg) 1 patch DAILY 08/23/18 11:00 08/27/18 08:30 1 PATCH Norepinephrine Bitartrate 250 ml @ As Directed STK-MED ONCE 08/22/18 06:11 08/22/18 06:12 DC Ondansetron HCl (Zofran Odt) 8 mg PRN Q12HRS PRN 08/22/18 09:15 Ondansetron HCl (Zofran) 4 mg PRN Q6HRS PRN 08/22/18 09:00 Oxycodone/ Acetaminophen (Percocet 5/325) 1 tab PRN Q6HRS PRN 08/22/18 09:00 08/26/18 21:03 1 TAB Piperacillin Sod/ Tazobactam Sod 2.25 gm/Sodium Chloride 50 ml @ 100 mls/hr Q8HRS 08/22/18 14:00 08/26/18 09:58 DC 08/26/18 06:12 100 MLS/HR Piperacillin Sod/ Tazobactam Sod 3.375 gm/Sodium Chloride 50 ml @ 100 mls/hr Q6HRS 08/22/18 06:00 UNV Potassium Chloride (Klor-Con) 40 meq 1X ONCE 08/26/18 11:45 08/26/18 11:46 DC 08/26/18 13:02 40 MEQ Sodium Chloride 1,000 ml @ 400 mls/hr Q2H30M PRN 08/27/18 09:27 08/27/18 21:26 Sodium Chloride (Normal Saline Flush) 10 ml 1X PRN PRN 08/25/18 15:00 08/26/18 14:59 DC Vancomycin HCl (Vanco Per Pharmacy) 1 each PRN DAILY PRN 08/22/18 05:45 08/27/18 12:48 1 EACH Vancomycin HCl (Vancomycin Random Level) 1 each 1X ONCE 08/23/18 05:00 08/23/18 05:01 DC 08/23/18 05:00 1 EACH Vancomycin HCl 1.25 gm/Sodium Chloride 250 ml @ 166.667 mls/hr 1X ONCE 08/22/18 03:00 08/22/18 04:29 DC 08/22/18 03:00 166.667 MLS/HR Vancomycin HCl 500 mg/Sodium Chloride 100 ml @ 100 mls/hr QMWF 08/23/18 16:00 08/25/18 20:03 100 MLS/HR Lab Laboratory Tests Test 08/27/18 05:30 White Blood Count 3.8 x10^3/uL (4.0-11.0) Red Blood Count 3.01 x10^6/uL (3.50-5.40) Hemoglobin 10.2 g/dL (12.0-15.5) Hematocrit 29.7 % (36.0-47.0) Mean Corpuscular Volume 99 fL (79-100) Mean Corpuscular Hemoglobin 34 pg (25-35) Mean Corpuscular Hemoglobin Concent 34 g/dL (31-37) Red Cell Distribution Width 14.2 % (11.5-14.5) Platelet Count 209 x10^3/uL (140-400) Neutrophils (%) (Auto) 56 % (31-73) Lymphocytes (%) (Auto) 26 % (24-48) Monocytes (%) (Auto) 14 % (0-9) Eosinophils (%) (Auto) 4 % (0-3) Basophils (%) (Auto) 1 % (0-3) Neutrophils # (Auto) 2.1 x10^3uL (1.8-7.7) Lymphocytes # (Auto) 1.0 x10^3/uL (1.0-4.8) Monocytes # (Auto) 0.5 x10^3/uL (0.0-1.1) Eosinophils # (Auto) 0.2 x10^3/uL (0.0-0.7) Basophils # (Auto) 0.0 x10^3/uL (0.0-0.2) Sodium Level 145 mmol/L (136-145) Potassium Level 3.6 mmol/L (3.5-5.1) Chloride Level 110 mmol/L (98-107) Carbon Dioxide Level 26 mmol/L (21-32) Anion Gap 9 (6-14) Blood Urea Nitrogen 9 mg/dL (7-20) Creatinine 2.3 mg/dL (0.6-1.0) Estimated GFR (Cockcroft-Gault) 21.9 Glucose Level 93 mg/dL (70-99) Calcium Level 8.6 mg/dL (8.5-10.1) Random Gentamicin Level 3.5 mcg/mL Results All relevant outside records, renal labs, imaging studies, telemetry/EKG's were reviewed. ALVAREZ MARTINEZ MD Aug 27, 2018 15:55
[2018-08-27] MEDS ORDERED: GENTAMICIN SULFATE 80 MG in IV DEXTROSE 5% 100ML 100 ML IV SCH (16:00)
[2018-08-27] MEDS: VANCOMYCIN 500 MG in IV NORMAL SALINE 100ML 100 ML IV SCH (17:55)
--- NOTE | 2018-08-27 18:33 | PDOC3 ---
Discharge Summary [facility] Date of Admission: Aug 22, 2018 Discharge Date: Aug 27, 2018 Admitting Diagnosis Septic shock off low-dose pressor - urine vs HD catheter. ID following. genta, vanco Bilateral indwelling nephrostomy tubes secondary to mechanical obstruction from advanced cervical carcinoma-right draining more than the left-as per IR keep the left as it is draining some urine Cervical cancer with mets, finished chemo ESRD, known patient of Dr. Boateng Anemia of ESRD History of DVT on Eliquis + bcx gram + clusters UTI with + pseudomonas CONSULTS id renal Brief Hospital Course History of Present Illness 58-year-old female w/ PMHx metastatic cervical cancer and replacement of bilateral nephrostomy tubes by IR, right draining more urine than the left. IR is Dr. morley. Last seen maybe a week or a month ago and advised to leave the left nephrostomy tube in as it is draining some though not great. She is also chemotherapy patient, has a right indwelling tunneled dialysis catheter. Occasionally being changed and last changed maybe a month ago. PT COMe for fever, was found + ucx, and bcx, low bp admited to ICU with levophed. UCX + pseudomonas, on gentamycin. + bcx gram+ clusters but final result not back yet. clinically pt is stable, no complain. has bl nephrostomy bag, rt side urine output is decent. cont on HD. pt eager to go home today, IDok to dc , cont vanco and gentamycin during HD. pt will fu with ID next week for the bcx result, understand vanco might not be the best abx if it is MSSA. dc home, dc time 35min. GENERAL: Alert and oriented female, not in distress. Ambulated without complications HEENT: nml cont. OC/Op -clear NECK: Supple, no JVP, no lymphadenopathy. LUNGS: Clear. HEART: S1, S2 regular. ABDOMEN: Benign. + BS EXTREMITIES: No edema, cyanosis. SKIN: Unremarkable. NEUROLOGIC: The patient is neurologically intact. LINES: The patient does have a tunneled hemodialysis catheter in the right upper chest, NT this am. Nephrostomy tubes are unremarkable, although the left side is not draining much. Right side is the main one that drains. Disposition home CONDITION AT DISCHARGE: Improved, Stable Scheduled Apixaban (Eliquis), 5 MG PO BID, (Reported) Lorazepam (Lorazepam), 1 MG PO Q8HRS, (Reported) Mirtazapine (Remeron), 1 TAB PO QHS, (Reported) Scheduled PRN Ondansetron Hcl (Zofran), 8 MG PO BID PRN for NAUSEA/VOMITING, (Reported) Oxycodone/Apap 5-325 (Percocet 5-325 Mg Tablet), 1 TAB PO PRN Q6HRS PRN for PAIN , (Reported) CELIO MOREL MD Aug 27, 2018 18:33
== END 2018-08-27 19:30 | disposition home or self-care (01) | DRG 919 ==
LOC: ER 00:30 → 1 WEST ICU 04:31 → 5 SOUTH 08-24 16:58
PROVIDERS: ADMIT Internal Medicine; ATTEND Internal Medicine
PROC: 5A1D70Z Performance of Urinary Filtration, Intermittent, Less than 6 Hours Per Day (ICD-10-PCS; principal; 2018-08-23)
PROC: 5A1D70Z Performance of Urinary Filtration, Intermittent, Less than 6 Hours Per Day (ICD-10-PCS; 2018-08-25)
PROC: 5A1D70Z Performance of Urinary Filtration, Intermittent, Less than 6 Hours Per Day (ICD-10-PCS; 2018-08-27)
DX: T85.698A Other mechanical complication of other specified internal prosthetic devices, implants and grafts, initial encounter (principal); A41.9 Sepsis, unspecified organism; N18.6 End stage renal disease; R65.21 Severe sepsis with septic shock; N13.6 Pyonephrosis; N17.9 Acute kidney failure, unspecified; B96.5 Pseudomonas (aeruginosa) (mallei) (pseudomallei) as the cause of diseases classified elsewhere; B96.89 Other specified bacterial agents as the cause of diseases classified elsewhere; C53.9 Malignant neoplasm of cervix uteri, unspecified; D63.1 Anemia in chronic kidney disease; Z88.8 Allergy status to other drugs, medicaments and biological substances; Z82.49 Family history of ischemic heart disease and other diseases of the circulatory system; Z85.41 Personal history of malignant neoplasm of cervix uteri; Z86.718 Personal history of other venous thrombosis and embolism; Z87.440 Personal history of urinary (tract) infections; Z99.2 Dependence on renal dialysis; Z79.899 Other long term (current) drug therapy
CPT/HCPCS: 36415; 71045; 80048; 80053; 80170; 80202; 81001; 83605; 85007; 85025; 87040; 87070; 87086; 87186; 87205; 87641; 87804; 87880; 93005; 96365; 96366; 96367; J1580; J2270; J2543; J3370; J7030; J7040; J7050; 99285-25

== ENCOUNTER → 2018-10-07 | Outpatient (CLI) | payer OTHER ==
[~2018-10-07] MED LIST changes: +IOHEXOL 240 MG/ML 50ML VIAL. PO ONE; -OXYC-323 PO; +OXYC1TAB15 PO; +OXYC5TAB4 PO; -OXYC5TAB95 PO
--- NOTE | 2018-10-07 10:12 | RAD ---
Examination: CT of the abdomen pelvis with oral contrast HISTORY: History of cervical cancer status post treatment COMPARISON: 06/22/2018 TECHNIQUE: Axial CT images of the abdomen pelvis were performed with oral contrast. Coronal and sagittal deformities are performed Exposure: One or more of the following individualized dose reduction techniques were utilized for this examination: 1. Automated exposure control 2. Adjustment of the mA and/or kV according to patient size 3. Use of iterative reconstruction technique FINDINGS: The bibasilar lungs are clear No evidence of free air identified in the abdomen The evaluation of the solid organs is limited lack of IV contrast. The visualized noncontrasted liver, spleen, adrenals grossly appears unremarkable. The gallbladder is mildly distended The stomach is mildly distended. The visualized pancreas grossly appears unremarkable The small bowel is nondilated. There is mild nonspecific, thickened appearance of the small bowel loop in the anterior lower abdomen best visualized on series 2 image 64. The appendix is normal. Feces and gas noted in the colon. Small retroperitoneal lymph nodes with largest measuring 9 mm similar to prior exam. The urinary bladder is minimally distended. There may be foci of air in the urinary bladder however distention within the urinary bladder and the lower cervical region is not clearly defined given some fat stranding about the cervical region. Faint fat stranding identified about the cervical region probably postsurgical changes of the kidneys compared to prior exam Bilateral nephrostomy tubes identified with minimal fat stranding identified about the left kidney grossly similar to prior exam. Mild degenerative changes lumbar spine. Minimal sclerotic changes identified in the pubic symphysis could be osteitis pubis or radiation change. IMPRESSION: 1. Interval decrease in fat stranding identified about the cervical region likely postoperative changes. There are foci of air about the cervical region. The distinction between the cervix and the posterior aspect of the urinary bladder is not clearly identified on this examination. There may be some air within the urinary bladder. A fistula between the cervix the urinary bladder is not completely excluded. A cystogram may be useful. Other possibility is cystitis. 2. Mild thickened appearance of the wall of the small bowel in the anterior lower abdomen could be due to nondistention or postradiation changes. Electronically signed by: Gurvinder Jenkins MD (10/07/2018 10:09 AM) [id number]
== END | disposition home or self-care (01) ==
LOC: CT 08:16
PROVIDERS: ATTEND Radiology Radiation Oncology
DX: Z08 Encounter for follow-up examination after completed treatment for malignant neoplasm (principal); N82.8 Other female genital tract fistulae; Z85.41 Personal history of malignant neoplasm of cervix uteri
CPT/HCPCS: 74176; Q9966

== ENCOUNTER 2018-11-10 08:34 | Outpatient (CLI) | payer OTHER, MEDICARE ==
[~2018-11-10] VITALS: Ht 167.6 cm; Wt 52.6 kg
[~2018-11-10 08:34] MED LIST changes: -IOHEXOL 240 MG/ML 50ML VIAL. PO ONE
[2018-11-10 08:57] VITALS: BP 112/75
[2018-11-10 08:57] LABS: BASO % 1 % (0-3); EOS # 0.2 x10^3/uL (0.0-0.7); EOS % 3 % (0-3); HEMATOCRIT 37.9 % (36.0-47.0); HEMOGLOBIN 12.7 g/dL (12.0-15.5); LYMPH # 1.2 x10^3/uL (1.0-4.8); LYMPH % 15 % (24-48); MEAN CORPUSCULAR HEMOGLOBIN 33 pg (25-35); MEAN CORPUSCULAR HGB CONC 34 g/dL (31-37); MEAN CORPUSCULAR VOLUME 98 fL (79-100); MONO # 0.5 x10^3/uL (0.0-1.1); MONO % 6 % (0-9); NEUT # 6.2 x10^3uL (1.8-7.7); NEUT % 76 % (31-73); PLATELET COUNT 326 x10^3/uL (140-400); RED BLOOD COUNT 3.87 x10^6/uL (3.50-5.40); RED CELL DISTRIBUTION WIDTH 13.8 % (11.5-14.5); WHITE BLOOD COUNT 8.2 x10^3/uL (4.0-11.0)
[2018-11-10 09:07] LABS: PROTHROMBIN TIME PATIENT 13.2 SEC (11.7-14.0)
[2018-11-10] MEDS ORDERED: LIDOCAINE WITH 8.4% SOD BICARB 3 ML DISP.SYRIN. ONE (10:04)
[2018-11-10] MEDS ORDERED: fentaNYL PF VIAL 100 MCG/2 ML VIAL ONE (10:05)
[2018-11-10] MEDS ORDERED: MIDAZOLAM HCL/PF 2 MG/2 ML VIAL. ONE (10:05)
[2018-11-10] MEDS ORDERED: IOHEXOL 300 MG/ML 100ML VIAL. ONE (10:05)
[2018-11-10] MEDS ORDERED: fentaNYL PF VIAL 100 MCG/2 ML VIAL IV ONE (10:15)
[2018-11-10] MEDS ORDERED: MIDAZOLAM HCL/PF 2 MG/2 ML VIAL. IV ONE (10:15)
[2018-11-10] MEDS ORDERED: LIDOCAINE WITH 8.4% SOD BICARB 3 ML DISP.SYRIN. IJ ONE (10:15)
[2018-11-10] MEDS ORDERED: IOHEXOL 300 MG/ML 100ML VIAL. IART ONE (10:15)
[2018-11-10 10:54] VITALS: BP 106/66
[2018-11-10 11:10] VITALS: BP 101/67
[2018-11-10 11:25] VITALS: BP 108/75
[2018-11-10 11:40] VITALS: BP 110/75
--- NOTE | 2018-11-10 11:50 | NUR ---
Pt discharged via wheelchair with boyfriend to home. Educated pt on follow up care, medications, site care, and s/s requiring further help. Pt sent home with education materials r/t to post sedation and nephrostomy tube placement. States v/u. Pt sent with extra nephrostomy bags and dressings. Follow up appt for next change of tubes made for patient and written on d/c paperwork as well as instructions to hold blood thinner for 48 hours pre-procedure. IV x1 removed and pressure applied.
--- NOTE | 2018-11-10 15:48 | RAD ---
Routine replacement of bilateral nephrostomy tubes 11.10.18 comparison: Bilateral nephrostomy tube exchange, with fluoroscopic guidance. 08.05.18 Indication: Routine exchange Discussion: The risks and benefits of the procedure discussed the patient. Informed consent was obtained. Timeout procedure was performed. The patient was placed in the prone position. Bilateral flanks including the pre-existing nephrostomy catheters were prepped and draped using sterile barrier technique. All elements of maximal sterile barrier technique including the use of a cap, mask, sterile gown, sterile gloves, large sterile sheet, appropriate hand hygiene, and 2% chlorhexidine for cutaneous antisepsis (or acceptable alternative antiseptic per current guidelines) were followed for this procedure. 1% lidocaine was administered for local anesthesia. Nephrostograms were performed bilaterally demonstrating appropriate placement of nephrostomy tubes with tips coiled in the renal pelves. Bentson wire was advanced through each tube coiled in the renal pelvis. Catheters were removed over this wire and replaced with a 10 Zimbabwean locking nephrostomy tubes. Contrast administration confirms appropriate placement. Catheters were secured in place and sterile dressings applied. No immediate complication was identified. The procedure was performed under conscious sedation including continuous cardiopulmonary monitoring via a dedicated sedation nurse. Vrnc-nn-vsav sedation time: 30 minutes Fluoroscopy time:: Routine replacement of bilateral nephrostomy tubes 08.05.18 comparison: Bilateral nephrostomy tube exchange, with fluoroscopic guidance. 04/01/2018 Indication: Routine exchange Discussion: The risks and benefits of the procedure discussed the patient. Informed consent was obtained. Timeout procedure was performed. The patient was placed in the prone position. Bilateral flanks including the pre-existing nephrostomy catheters were prepped and draped using sterile barrier technique. All elements of maximal sterile barrier technique including the use of a cap, mask, sterile gown, sterile gloves, large sterile sheet, appropriate hand hygiene, and 2% chlorhexidine for cutaneous antisepsis (or acceptable alternative antiseptic per current guidelines) were followed for this procedure. 1% lidocaine was administered for local anesthesia. Nephrostograms were performed bilaterally demonstrating appropriate placement spaces and tubes with tips coiled in the renal pelves. Bentson wire was advanced through each tube coiled in the renal pelvis. Catheters were removed over this wire and replaced with a 10 Zimbabwean locking nephrostomy tube. Contrast drains were repeated confirming appropriate placement. Catheters were secured in place and sterile dressings applied. No immediate complication was identified. The procedures performed under conscious sedation including continuous cardiopulmonary monitoring via a dedicated sedation nurse. Euil-jw-tnak sedation time: 30 minutes Fluoroscopy time: 2.2 Minutes Dose area product:3 Gycm2 Impression: Routine exchange of bilateral approximately tubes with fluoroscopic guidance
== END 2018-11-10 11:50 | disposition home or self-care (01) ==
LOC: INTRAD 08:34
PROVIDERS: ATTEND Internal Medicine Hematology & Oncology
DX: Z46.6 Encounter for fitting and adjustment of urinary device (principal); C53.9 Malignant neoplasm of cervix uteri, unspecified; Z79.01 Long term (current) use of anticoagulants; Z88.5 Allergy status to narcotic agent
CPT/HCPCS: 36415; 50435; 85025; 85610; 85730; 99152; 99153; C1729; C1769; J1956; J2250; J3010; Q9967

== ENCOUNTER 2018-11-12 09:55 | Outpatient (CLI) | payer OTHER, MEDICARE ==
[~2018-11-12] VITALS: Ht 167.6 cm; Wt 52.6 kg
[2018-11-12] MEDS ORDERED: LIDOCAINE 1%/EPI 1:100,000 20 ML VIAL. ONE (10:02)
[2018-11-12 10:55] VITALS: BP 128/78
[2018-11-12] MEDS ORDERED: fentaNYL PF VIAL 100 MCG/2 ML VIAL ONE (11:34)
[2018-11-12] MEDS ORDERED: MIDAZOLAM HCL/PF 2 MG/2 ML VIAL. ONE (11:34)
[2018-11-12 12:00] VITALS: BP 107/69
[2018-11-12] MEDS ORDERED: LIDOCAINE 1%/EPI 1:100,000 20 ML VIAL. IJ ONE (12:00)
[2018-11-12] MEDS ORDERED: MIDAZOLAM HCL/PF 2 MG/2 ML VIAL. IV ONE (12:00)
[2018-11-12] MEDS ORDERED: fentaNYL PF VIAL 100 MCG/2 ML VIAL IV ONE (12:00)
[2018-11-12 12:05] VITALS: BP 109/66
[2018-11-12 12:20] VITALS: BP 100/67
[2018-11-12 12:45] VITALS: BP 106/70
--- NOTE | 2018-11-12 13:28 | NUR ---
Discharge Note: FEMI MARROQUIN Discharge instructions and discharge home medications reviewed with Patient and a copy given. All questions have been answered and understanding verbalized. The following instructions and handouts were given: education was given to patient regarding moderate sedation and tunneled HD catheter. Pt was also instructed to continue home medications as directed. Pt verbalized understanding. Discontinued lines and drains: peripheral iv was discontinued with no complications. Catheter tip was intact. Patient discharged to home with self care via wheelchair. Pt was accompanied by spouse.
--- NOTE | 2018-11-12 14:17 | RAD ---
Procedure: Tunneled hemodialysis catheter placement 11/12/2018 2:09 PM Clinical Indication: Failed left upper extremity AV fistula/graft Sterility: All elements of maximal sterile barrier technique including the use of a cap, mask, sterile gown, sterile gloves, large sterile sheet, appropriate hand hygiene, and 2% chlorhexidine for cutaneous antisepsis (or acceptable alternative antiseptic per current guidelines) were followed for this procedure. Consent: The procedure was explained in its entirety to the patient or the patients designated energy conservation representative by a member of the treatment team, including a discussion of the risks, benefits and commonly accepted alternatives to the procedure, as well as the expected consequences of no therapy whatsoever. Discussion of the risks included, but was not limited to, those that are most frequent and those that are rare but possibly severe or life-threatening, as well as the possibility of unforeseen complications. Technique and Findings: Following informed consent, a timeout procedure was performed. The patient was prepped and draped in the usual sterile fashion. Ultrasound interrogation of the left neck revealed patency and compressibility of the left internal jugular vein. A 21-gauge micropuncture was then used to gain access to this vein under ultrasound guidance. A hard copy ultrasound image was recorded. The needle was exchanged over a wire for a 4 Croatian sheath which was used to guide an guidewire into the IVC. The skin over the left anterior chest wall was copiously anesthetized with 1% Lidocaine and a small dermatotomy was made. A 23 cm tipped cuff palindrome tunneled hemodialysis catheter was then tunneled subcutaneously towards the neck dermatotomy and deployed through a large caliber peel-away sheath under fluoroscopic guidance such that the distal tip resided in the mid right atrium. Manual flow rates were assessed and found to be within normal limits. The catheter was then flushed, capped, and sutured to the skin. The neck dermatotomy was closed with Dermabond. No immediate complications were identified. Sedation: Conscious sedation was administered for 30 minutes. The patient was monitored by a qualified independent observer throughout the time of sedation. Please refer to the medical record for exact doses of medications utilized to achieve moderate sedation. Total fluoroscopy time: 0.3 minutes Dose area product: 1 Gycm2 Impression: Placement of a left internal jugular tunneled central venous catheter for dialysis access
== END 2018-11-12 13:31 | disposition home or self-care (01) ==
LOC: INTRAD 09:55
PROVIDERS: ATTEND Internal Medicine Nephrology
DX: N18.9 Chronic kidney disease, unspecified (principal); Z88.6 Allergy status to analgesic agent
CPT/HCPCS: 36558; 76937; 77001; A4215; C1750; C1892; J0690; J2250; J3010; J3490; 99152

== ENCOUNTER 2019-02-10 19:13 | Emergency (ER) | payer OTHER, MEDICARE ==
[~2019-02-10] VITALS: Ht 165.1 cm; Wt 48.1 kg
[2019-02-10 20:01] VITALS: BP 152/100
--- NOTE | 2019-02-10 20:39 | PHYS DOC ---
Past Medical History Past Medical History: Cancer, Other Additional Past Medical Histor: KIDNEY FAILURE,cervical cancer, Past Surgical History: , Other Additional Past Surgical Histo: R CHEST DIALYSIS PORT, R&L ARM FISTULA, BILAT NEPH TUBES,permacath Alcohol Use: None Drug Use: None Adult General Chief Complaint Chief Complaint: OTHER COMPLAINTS [facility] HPI Patient is a 58 year old [f__sex] who presents with [] Review of Systems Review of Systems Constitutional: Denies fever or chills [] Eyes: Denies change in visual acuity, redness, or eye pain [] HENT: Denies nasal congestion or sore throat [] Respiratory: Denies cough or shortness of breath [] Cardiovascular: No additional information not addressed in HPI [] GI: Denies abdominal pain, nausea, vomiting, bloody stools or diarrhea [] : Denies dysuria or hematuria [] Musculoskeletal: Denies back pain or joint pain [] Integument: Denies rash or skin lesions [] Neurologic: Denies headache, focal weakness or sensory changes [] Endocrine: Denies polyuria or polydipsia [] All other systems were reviewed and found to be within normal limits, except as documented in this note. Allergies Allergies Allergies Coded Allergies Type Severity Reaction Last Updated Verified codeine Adverse Reaction Mild Nausea 04/22/18 Yes Physical Exam Physical Exam Constitutional: Well developed, well nourished, no acute distress, non-toxic appearance. [] HENT: Normocephalic, atraumatic, bilateral external ears normal, oropharynx moist, no oral exudates, nose normal. [] Eyes: PERRLA, EOMI, conjunctiva normal, no discharge. [] Neck: Normal range of motion, no tenderness, supple, no stridor. [] Cardiovascular:Heart rate regular rhythm, no murmur [] Lungs & Thorax: Bilateral breath sounds clear to auscultation [] Abdomen: Bowel sounds normal, soft, no tenderness, no masses, no pulsatile masses. [] Skin: Warm, dry, no erythema, no rash. [] Back: No tenderness, no CVA tenderness. [] Extremities: No tenderness, no cyanosis, no clubbing, ROM intact, no edema. [] Neurologic: Alert and oriented X 3, normal motor function, normal sensory function, no focal deficits noted. [] Psychologic: Affect normal, judgement normal, mood normal. [] Current Patient Data Vital Signs Vital Signs Date Time Temp Pulse Resp B/P (MAP) Pulse Ox O2 Delivery O2 Flow Rate FiO2 02/10/19 20:01 99.6 102 18 152/100 (117) 94 Room Air 99.6 EKG EKG [] Radiology/Procedures Radiology/Procedures [] Course & Med Decision Making Course & Med Decision Making Pertinent Labs and Imaging studies reviewed. (See chart for details) [] Dragon Disclaimer Dragon Disclaimer This electronic medical record was generated, in whole or in part, using a voice recognition dictation system. Departure Departure Referrals: CHINMAY CERDA MD (PCP) TANA GARCIA DO Feb 10, 2019 20:39
[2019-02-11] MEDS ORDERED: DULO30CA2 PO (11:45)
[2019-02-11] MEDS ORDERED: OXYC1TAB19 PO (11:45)
== END 2019-02-10 21:06 | disposition left against medical advice (07) ==
LOC: ER 19:13
DX: Z43.6 Encounter for attention to other artificial openings of urinary tract (principal); Z53.21 Procedure and treatment not carried out due to patient leaving prior to being seen by health care provider

== ENCOUNTER 2019-02-11 10:11 | Observation (INO) | payer OTHER, MEDICARE ==
[2019-02-11] VITALS (8 sets, daily range): BP systolic 105–200; BP diastolic 73–94
[~2019-02-11] VITALS: Ht 168.9 cm; Wt 47.2 kg
[~2019-02-11 10:11] MED LIST changes: +IOHEXOL 240 MG/ML 50ML VIAL. ONE; +LIDOCAINE WITH 8.4% SOD BICARB 3 ML DISP.SYRIN. ONE
[2019-02-11] MEDS ORDERED: LIDOCAINE WITH 8.4% SOD BICARB 3 ML DISP.SYRIN. ONE (10:44)
[2019-02-11] MEDS ORDERED: GELATIN SPONGE SIZE 12-7MM SPONGE. ONE (10:46)
[2019-02-11] MEDS ORDERED: fentaNYL PF VIAL 100 MCG/2 ML VIAL ONE (10:55)
[2019-02-11] MEDS ORDERED: MIDAZOLAM HCL/PF 2 MG/2 ML VIAL. ONE (10:55)
[2019-02-11] MEDS ORDERED: LIDOCAINE WITH 8.4% SOD BICARB 3 ML DISP.SYRIN. IJ ONE (11:00)
[2019-02-11] MEDS ORDERED: fentaNYL PF VIAL 100 MCG/2 ML VIAL IV ONE (11:00)
[2019-02-11] MEDS ORDERED: MIDAZOLAM HCL/PF 2 MG/2 ML VIAL. IV ONE (11:00)
[2019-02-11] MEDS ORDERED: IOHEXOL 240 MG/ML 50ML VIAL. ONE (11:00)
[2019-02-11] MEDS ORDERED: IOHEXOL 240 MG/ML 50ML VIAL. IJ ONE (11:15)
[2019-02-11] MEDS ORDERED: CONTRAST GIVEN. MC PRN (11:15)
[2019-02-11] MEDS ORDERED: DULO30CA2 PO (11:45)
[2019-02-11] MEDS ORDERED: OXYC1TAB19 PO (11:45)
[2019-02-11 13:43] LABS: BASO # 0.1 x10^3/uL (0.0-0.2); BASO % 0 % (0-3); EOS % 0 % (0-3); HEMATOCRIT 34.2 % (36.0-47.0); HEMOGLOBIN 11.2 g/dL (12.0-15.5); LYMPH # 0.9 x10^3/uL (1.0-4.8); LYMPH % 5 % (24-48); MEAN CORPUSCULAR HEMOGLOBIN 31 pg (25-35); MEAN CORPUSCULAR HGB CONC 33 g/dL (31-37); MEAN CORPUSCULAR VOLUME 95 fL (79-100); MONO # 0.3 x10^3/uL (0.0-1.1); MONO % 2 % (0-9); NEUT % 93 % (31-73); PLATELET COUNT 470 x10^3/uL (140-400); RED CELL DISTRIBUTION WIDTH 15.3 % (11.5-14.5); WHITE BLOOD COUNT 18.3 x10^3/uL (4.0-11.0)
[2019-02-11 14:00] LABS: CALCIUM 8.7 mg/dL (8.5-10.1); CREATININE 3.1 mg/dL (0.6-1.0); GFR 15.5; POTASSIUM 4.3 mmol/L (3.5-5.1)
--- NOTE | 2019-02-11 14:00 | NUR ---
at 1310 pt was shivering but skin was very hot. temp check - 102.3 ax. b/p is now more elevated from that of her baseline pressures. no drainage from left nephrostomy tube, rt nephrostomy tube has some pink/slight red tinged drainage in the bag. called Dr. Ireland with these concerns. it was decided to admit her for possible sepsis. when her nephrostomy tube on the right was inserted (after having fallen out last night) her urine output was very cloudy and chunky looking. she received IV levequin during her procedure today. Dr. Ireland talked w/pt and her boyfriend, boyfriend wanted pt to be admitted but the pt kept refusing. Dr. Ireland talked w/Dr. Frias and orders given to admit pt. discussed this w/ pt but she was still very unhappy about it. her boyfriend asked for a few minutes alone to talk with pt.chela pulled to the bay where pt was and a few minutes later pt came rushing out of her bay fully clothed. she said she was leaving that she had to get home. refused to be reasoned with and her boyfriend stated that he couldn' t get her to stay. pt left and refused to stay for d/c instructions or DrJacquelyn to come talk with her. notified Dr. Ireland and he said he would let Dr. Frias know. notified the floor where she was to go of the fact that pt left AMA.
--- NOTE | 2019-02-11 14:16 | NUR ---
Pt had been advised by this RN and Dr. Ireland to be admitted because if she went home with the elevated B/P , temp and her abnormal urine she would most likely get worse before she got better. pt had agreed to stay and allowed labs to be drawn. When pt was leaving AMA 2 other nurses tried to talk her in to staying because she is very sick but pt refused and stated we couldn't keep her. discussed that she would be leaving against medical advice but she just said she had to get home. when she left AMA her script for po Levaquin which had been written earlier when she had been more stable was left behind. called her boyfriend and left him a message to call so we could call it in to her pharmacy.
[2019-02-11] MEDS ORDERED: NORMAL SALINE IV SCH (14:59)
[2019-02-11] MEDS ORDERED: LORazepam 0.5 MG TABLET PO PRN (15:00)
[2019-02-11] MEDS ORDERED: ALBUTEROL SULFATE 2.5 MG/3 ML NEBU. NEB PRN (15:00)
[2019-02-11] MEDS ORDERED: guaiFENesin ORAL 200 MG/10 ML LIQUID. PO PRN (15:00)
[2019-02-11] MEDS ORDERED: VANCOMYCIN PER PHARMACY MC PRN (15:00)
[2019-02-11] MEDS ORDERED: ONDANSETRON PF 4 MG/2 ML VIAL. IV PRN (15:00)
[2019-02-11] MEDS ORDERED: ACETAMINOPHEN 325 MG TABLET. PO PRN (15:00)
[2019-02-11] MEDS ORDERED: diphenhydrAMINE 50 MG/ML VIAL IVP PRN (15:00)
[2019-02-11] MEDS ORDERED: VANCOMYCIN 1 GM in IV DEXTROSE 5% 250 ML IV ONE (15:00)
[2019-02-11] MEDS ORDERED: NOREPINEPHRIN 8MG/250ML PREMIX 250 ML IV PRN (15:00)
[2019-02-11] MEDS ORDERED: IV NORMAL SALINE 500ML BAG 500 ML IV PRN (15:00)
[2019-02-11] MEDS ORDERED: IPRATRPIUM/ALBUTEROL 0.5/2.5MG 3 ML NEBU. NEB SCH (15:00)
[2019-02-11] MEDS ORDERED: cloNIDine HCL 0.1 MG TABLET PO PRN (15:00)
[2019-02-11] MEDS ORDERED: DOCUSATE SODIUM 100 MG CAPSULE. PO PRN (15:00)
--- NOTE | 2019-02-11 16:10 | PDOC ---
Provider Note Provider Note IR NOTE Following nephrostomy tube replacement the patient became febrile, and tachycardic. Her urine was quite cloudy and was sent for culture. She had chills , and was shaking. I discussed the situation with patient and told her that I believed it was in her best interests to be admitted to the hospital for evaluation and treatment. I told her I felt that this was a serious medical condition that could evolve into a life threatening one. I arranged for admission to the hospital to treat possible transient septicemia, which can occur following exchange. Unfortunately, soon after I left the room, per nursing report, she got up and left AMA. MEGHANA ABDALLA MD Feb 11, 2019 16:10
[2019-02-11 16:27] LABS: % BANDS 18 % (0-9); % LYMPHS 3 % (24-48); % SEGS 79 % (35-66); PLT ESTIMATE INCREASED (ADEQUATE)
[2019-02-11] MEDS ORDERED: PIPERACILLIN/TAZOBACTAM 3.375 GM in IV NORMAL SALINE 50ML 50 ML IV SCH (22:00)
--- NOTE | 2019-02-14 13:49 | RAD ---
02/11/2019 1. Replacement of right nephrostomy tube through pre-existing tract 2. Routine exchange of left-sided nephrostomy tube. Discussion: The risks and benefits of the procedure were discussed the patient. Informed consent was obtained. Timeout procedure was performed. Preprocedural antibiotics were administered. The patient was placed in the prone position. The flanks were prepped and draped using sterile barrier technique. Using a MPA catheter and Glidewire, the pre-existing right nephrostomy tract was recannulated. A guidewire was advanced into the ureter. Following dilatation a new 10 Guamanian nephrostomy tube was placed. On the left side a guidewire was advanced through the pre-existing nephrostomy in the renal collecting system. The pre-existing catheter was removed and replaced with a new 10 Guamanian drain. Patient tolerated the procedure without immediate complication. Sterile dressings were applied. The procedure was performed under conscious sedation including continuous cardiopulmonary monitoring via a dedicated sedation nurse. Hdix-ck-uvwm sedation time: 31 minutes Total fluoroscopy time: 6.2 MIN Dose area product: 5 Gycm2 Impression: 1. Replacement of right nephrostomy tube through pre-existing tract 2. Routine exchange of left nephrostomy tube
== END 2019-02-11 13:30 | disposition left against medical advice (07) ==
LOC: INTRAD 10:11 → 6 SOUTH 13:20
PROVIDERS: ADMIT Internal Medicine; ATTEND Internal Medicine Hematology & Oncology
DX: A41.9 Sepsis, unspecified organism (principal)
CPT/HCPCS: 36415; 50435; 80048; 83605; 84145; 84443; 85007; 85025; 87071; 87075; 87186; 96365; 96375; C1729; C1769; G0379; J1956; J2250; J3010; Q9966; 50432; 99152; 99153

== ENCOUNTER → 2019-03-22 | Outpatient (CLI) | payer OTHER, MEDICARE ==
[2019-02-11 13:40] VITALS: BP 158/73
[~2019-03-22] MED LIST changes: +CONTRAST GIVEN. MC PRN; +DULO30CA2 PO; -IOHEXOL 240 MG/ML 50ML VIAL. ONE; +IOHEXOL 240 MG/ML 50ML VIAL. PO ONE; -LIDOCAINE WITH 8.4% SOD BICARB 3 ML DISP.SYRIN. ONE; +OXYC1TAB19 PO
--- NOTE | 2019-03-22 15:18 | RAD ---
Examination: CT ABDOMEN PELVIS WO CONTRAST History: Cervical cancer. Bilateral hydronephrosis. Weight loss and back pain. Comparison/Correlation: 10/07/2018 CT abdomen and pelvis without contrast Findings: Axial images of the abdomen and and pelvis were obtained following oral contrast. Sagittal and coronal reformatted images provided. Visualized lung bases are clear. Unenhanced liver and spleen are unremarkable. Pancreas is normal. Gallbladder fossa is unremarkable. Appendix is normal. Moderate quantity of stool in the colon noted. Diverticulosis of the colon noted. Minimal pelvic free fluid is present in the presacral region. Enlarged lymph node in the left infrarenal para-aortic region measuring 1.7 cm x 1.4 cm is present on axial image 24. Bilateral nephrostomy tubes are present. No hydronephrosis. Minimal gas in the pelvicalyceal systems noted. Urinary bladder is unremarkable. Fluid level is present within the uterine cervix and vagina. This is contiguous with a collection and soft tissue mass along the left side of the lower uterine body. This entire process measures 10.7 cm transverse by 3.1 cm anteroposterior by approximately 3.1 cm longitudinal. Minimal presacral fluid noted. Sclerotic appearance of the symphysis pubis is noted similar to prior exam. Impression: Fluid level involving the uterine cervix and vagina level which is contiguous with a complex collection and soft tissue density along the left side of the uterus in this patient with known vesicovaginal fistula. This finding has developed since the previous exam. Findings compatible with progression of cervical carcinoma. Enlarged lymph node is new in the interval at the left infrarenal para-aortic region. Presacral fluid also seen. No hydronephrosis. PQRS Compliance Statement: One or more of the following individualized dose reduction techniques were utilized for this examination: 1. Automated exposure control 2. Adjustment of the mA and/or kV according to patient size 3. Use of iterative reconstruction technique Electronically signed by: Mike Stearns MD (03/22/2019 3:15 PM) [facility]
== END | disposition home or self-care (01) ==
LOC: CT 08:25
PROVIDERS: ATTEND Radiology Radiation Oncology
DX: K57.30 Diverticulosis of large intestine without perforation or abscess without bleeding (principal); N85.8 Other specified noninflammatory disorders of uterus; N82.0 Vesicovaginal fistula; R59.0 Localized enlarged lymph nodes; Z85.41 Personal history of malignant neoplasm of cervix uteri
CPT/HCPCS: 74176

== ENCOUNTER 2019-06-14 06:53 | Outpatient (CLI) | payer OTHER, MEDICARE ==
[~2019-06-14] VITALS: Ht 167.6 cm; Wt 37.6 kg
[~2019-06-14 06:53] MED LIST changes: -CONTRAST GIVEN. MC PRN; -IOHEXOL 240 MG/ML 50ML VIAL. PO ONE
[2019-06-14] MEDS ORDERED: fentaNYL PF VIAL 250 MCG/5 ML VIAL ONE (07:51)
[2019-06-14] MEDS ORDERED: MIDAZOLAM HCL/PF 5 MG/5 ML VIAL. ONE (07:51)
[2019-06-14] MEDS ORDERED: LIDOCAINE WITH 8.4% SOD BICARB 3 ML DISP.SYRIN. ONE (07:52)
[2019-06-14] MEDS ORDERED: IOHEXOL 240 MG/ML 50ML VIAL. ONE (07:53)
[2019-06-14 08:07] VITALS: BP 98/62
[2019-06-14] MEDS ORDERED: PEMB100V IV (08:09)
[2019-06-14] MEDS ORDERED: LEVO25TA55 PO (08:09)
[2019-06-14] MEDS ORDERED: PRED20TA PO (08:09)
[2019-06-14 08:11] LABS: CALCIUM 9.2 mg/dL (8.5-10.1); GFR 25.7; POTASSIUM 4.6 mmol/L (3.5-5.1)
[2019-06-14 08:23] LABS: PROTHROMBIN TIME PATIENT 15.1 SEC (11.7-14.0)
[2019-06-14 08:24] LABS: BASO # 0.1 x10^3/uL (0.0-0.2); BASO % 1 % (0-3); EOS # 0.1 x10^3/uL (0.0-0.7); EOS % 1 % (0-3); HEMATOCRIT 28.6 % (36.0-47.0); HEMOGLOBIN 8.8 g/dL (12.0-15.5); LYMPH # 0.9 x10^3/uL (1.0-4.8); LYMPH % 7 % (24-48); MEAN CORPUSCULAR HEMOGLOBIN 28 pg (25-35); MEAN CORPUSCULAR HGB CONC 31 g/dL (31-37); MEAN CORPUSCULAR VOLUME 89 fL (79-100); MONO % 8 % (0-9); NEUT # 10.9 x10^3/uL (1.8-7.7); NEUT % 84 % (31-73); PLATELET COUNT 487 x10^3/uL (140-400); RED BLOOD COUNT 3.21 x10^6/uL (3.50-5.40); RED CELL DISTRIBUTION WIDTH 18.5 % (11.5-14.5); WHITE BLOOD COUNT 12.9 x10^3/uL (4.0-11.0)
[2019-06-14] MEDS ORDERED: MIDAZOLAM HCL/PF 5 MG/5 ML VIAL. IV ONE (09:00)
[2019-06-14] MEDS ORDERED: fentaNYL PF VIAL 250 MCG/5 ML VIAL IV ONE (09:00)
[2019-06-14] MEDS ORDERED: LIDOCAINE WITH 8.4% SOD BICARB 3 ML DISP.SYRIN. IJ ONE (09:00)
[2019-06-14] MEDS ORDERED: IOHEXOL 240 MG/ML 50ML VIAL. IJ ONE (09:00)
[2019-06-14 09:04] VITALS: BP 80/43
[2019-06-14 09:10] VITALS: BP 82/54
[2019-06-14 09:39] VITALS: BP 84/59
[2019-06-14 10:03] VITALS: BP 86/52
--- NOTE | 2019-06-14 10:04 | NUR ---
Discharge Note: FEMI MARROQUIN Discharge instructions and discharge home medications reviewed with Patient and a copy given. All questions have been answered and understanding verbalized. The following instructions and handouts were given: Nephrostomy tube care, Moderate sedation Discontinued lines and drains: Left AC IV removed. Patient discharged home with Daughter and education instructions. Addendum: 06/14/19 at 1007 by HOLA PEREZ RN Amended: Links added.
--- NOTE | 2019-06-14 15:57 | RAD ---
Routine replacement of bilateral nephrostomy tubes 06/14/2019 Indication: Routine exchange Discussion: The procedure was explained in its entirety to the patient or the patients designated denial management representative by a member of the treatment team, including a discussion of the risks, benefits and commonly accepted alternatives to the procedure, as well as the expected consequences of no therapy whatsoever. Discussion of the risks included, but was not limited to, those that are most frequent and those that are rare but possibly severe or life-threatening, as well as the possibility of unforeseen complications. Informed consent was obtained. Timeout procedure was performed. The patient was placed in the prone position. Bilateral flanks including the pre-existing nephrostomy catheters were prepped and draped using sterile barrier technique. All elements of maximal sterile barrier technique including the use of a cap, mask, sterile gown, sterile gloves, large sterile sheet, appropriate hand hygiene. 1% lidocaine was administered for local anesthesia. Nephrostograms were performed bilaterally demonstrating appropriate placement of nephrostomy tubes with tips coiled in the renal pelves. Amplatz wire was advanced through each of the nephrostomy tubes into the renal pelves. The catheter was removed over the wire followed by replacement with a new 10 Maori catheter. Wires were removed. Contrast was administered confirming appropriate placement. Catheters were secured in place and sterile dressings applied. No immediate complication was identified. The procedure was performed under conscious sedation including continuous cardiopulmonary monitoring via a dedicated sedation nurse. Wahn-bq-giiy sedation time: 23 minutes Fluoroscopy time: 1.3 Minutes Dose area product: 0.3 Gycm2 Impression: Routine exchange of bilateral nephrostomy tubes with fluoroscopic guidance
== END 2019-06-14 10:10 ==
LOC: INTRAD 06:53
PROVIDERS: ATTEND Internal Medicine Hematology & Oncology
DX: Z45.2 Encounter for adjustment and management of vascular access device (principal); C53.9 Malignant neoplasm of cervix uteri, unspecified; Z79.01 Long term (current) use of anticoagulants
CPT/HCPCS: 36415; 50435; 80048; 85025; 85610; 85730; C1729; C1769; J0690; J2250; J3010; Q9966; 99152; 99153

== ENCOUNTER → 2019-08-05 | Outpatient (CLI) | payer OTHER, MEDICARE ==
[~2019-08-05] MED LIST changes: +IOHEXOL 240 MG/ML 50ML VIAL. PO ONE; +LEVO25TA55 PO; +PEMB100V IV; +PRED20TA PO
--- NOTE | 2019-08-05 17:50 | RAD ---
Examination: CT CHEST ABDOMEN PELVIS WO History: Cervical cancer Comparison/Correlation: 03/22/2019 CT abdomen and pelvis without contrast , 02/11/2019 PET/CT exam Findings: Axial images of chest, abdomen, and pelvis were obtained without contrast. Sagittal and coronal reformatted images were provided. Oral contrast was utilized. Left internal jugular dialysis catheter is present terminating at the superior cavoatrial junction. Diffuse emphysematous involvement of the lung ramírez is present. Minimal ossification of left lower lobe bronchus noted. No infiltrate or pleural effusion. No enlarged thoracic lymph nodes. Liver, spleen, pancreas, and adrenal glands are normal. Bilateral nephrostomy tubes are present. No hydronephrosis. No bowel obstruction. Diverticulosis is present. Appendix is normal. There is a collection of gas noted anterior to the anterior aspect of the uterus. Contrast is noted extending from the site of this gas to the midline perineum skin surface. This collection of gas and contrast corresponds to previous described complex collection at this site. Currently this collection measures up to 6.4 cm transverse by 5.3 cm anteroposterior. There is a contrast-filled small bowel loop which abuts the superior aspect of this gas/fluid collection and may communicate with the. This is best seen on sagittal image 31 of series 9. Soft tissue density mass anterior to this gas-contrast collection is again seen to extend to the symphysis pubis with mild increase in size currently measuring 5.5 cm transverse by 3.1 cm anteroposterior on axial image 64 of series 4. This represents an increase in size of 0.5 cm transverse. There is notable decrease in size in the left intrarenal para-aortic lymph node described previously. This lymph node appears to be present on axial image 22 of series 4 with a maximum measurement of 0.9 cm x 0.6 cm. Sclerotic symphysis pubis again seen. 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 Fistulous indication with a small bowel loop along the superior margin of this collection is evident as contrast is noted within this collection extending to the perineum surface. Soft tissue density mass anterior to the gas-contrast collection described earlier is noted and is mildly increased in the interval. Marked decrease in size of the left infrarenal para-aortic lymph node. Diverticulosis. PQRS Compliance Statement: One or more of the following individualized dose reduction techniques were utilized for this examination: 1. Automated exposure control 2. Adjustment of the mA and/or kV according to patient size 3. Use of iterative reconstruction technique Electronically signed by: Mike Stearns MD (08/05/2019 5:47 PM) [facility]
== END | disposition home or self-care (01) ==
LOC: CT 07:53
PROVIDERS: ATTEND Internal Medicine Hematology & Oncology
DX: C53.9 Malignant neoplasm of cervix uteri, unspecified (principal); R53.83 Other fatigue; N28.9 Disorder of kidney and ureter, unspecified; Z88.5 Allergy status to narcotic agent
CPT/HCPCS: 71250; 74176; Q9966